=== PATIENT | female | born 1975 | race Caucasian/White ===

== ENCOUNTER 2024-01-30 06:20 | Inpatient (IN) | payer MEDICARE, OTHER, SELFPAY ==
[2024-01-30] VITALS (19 sets, daily range): BP systolic 98–136; BP diastolic 63–87; BMI 39.1
--- NOTE | 2024-01-30 04:09 | ED.GENMED ---
History of Present Illness
General
Chief Complaint: Vomiting Blood
Time Seen by Provider: 01/30/24 03:58
Travel History
Have you had any contact with someone who has COVID-19?: No
Do you have any symptoms of coronavirus? Fever > 100 degrees, chills, cough, shortness of breath, sore throat, loss of taste or smell, muscle aches, or headache?: No
History of Present Illness
History of Present Illness:
This is a 48-year-old woman with past medical history significant for cerebellar CVA 2017 with residual left-sided hemiplegia, chronically bedbound, history of DVT/PE status post IVC filter, chronically maintained on Eliquis, chronic pain syndrome
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
January 22 to January 26 initially with complaints of abdominal pain, nausea and vomiting with report of coffee-ground emesis prior to arrival. There was no further coffee-ground emesis during that hospitalization. CT abdomen pelvis during that
hospitalization showed no acute pathology but did demonstrate moderate to large stool burden suggestive of constipation. She was noted to have leukocytosis without definitive infectious pathology. Acute on chronic anemia with hemoglobin dropping
from 12.2-8.9, then trending back up to 9.5.
She was treated with bowel regimen with MiraLAX twice daily, magnesium oxide twice daily, smaller more frequent meals. PPI twice daily and milk of molasses enema as needed.
She was discharged back to intermediate facility for continued long-term care.
Patient states since discharge back to half-way she has continued with nausea, poor appetite and recurrent vomiting tonight with recurrent coffee-ground emesis.
She states during most recent hospitalization she was evaluated by GI and there was discussion regarding upper endoscopy but was not performed. She states her last upper endoscopy was a number of years ago.
She remains on bowel regimen and has been taking Zofran intermittently for nausea which is generally effective until tonight. She is also prescribed Reglan but does not believe she received a dose of Reglan today nor tonight.
She denies abdominal pain but does note chronic persistent low back pain, unchanged.
She has not had a fever nor chills, no chest pain nor shortness of breath. She does note intermittent dry cough that is chronic and unchanged as well.
Past History
Past History
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
gastric ulcer)
ED Past Surgical History: Other (gastric bypass, back sx)
Social History
Tobacco: Non-smoker
Alcohol: None
Personal: Single
Living: half-way
Employment: Disabled
Family History
Family History: Other (Noncontributory)
Phy Exam
Physical Exam
Physical Exam:
GENERAL: 48-year-old woman appears older than stated age, morbidly obese, appears chronically debilitated/chronically bedbound. She is awake and alert, exhibits a moderately blunted affect, easily communicative and appears in no acute distress. A
Yankauer suction catheter is poised along the left side of her mouth. An emesis bag contains a small amount of dark brown liquid material.
EYE: pupils equal and reactive. anicteric
NECK: Supple, nontender, no meningismus, no significant adenopathy.
ENT: posterior pharynx is clear, there is scant dark brown qmpqol-oiuqoz-ozlx material about the patient's lips. No rhinorrhea.
CARDIAC: Regular rate and rhythm. no murmur.
LUNGS: Clear breath sounds bilaterally, no acute respiratory distress, no wheezes/rales/rhonchi
ABDOMEN: Obese, soft, nondistended, without focal tenderness, mildly hypoactive bowel sounds.
NEUROLOGICAL: Alert and oriented x3, chronic left hemiparesis. Chronically bedbound.
SKIN: Warm and dry, mildly pale in color, skin intact. No rash.
MUSCULOSKELETAL: +1 pitting edema bilateral lower extremities, peripheral pulses are full and equal b/l. No palpable tenderness.
PSYCH: Normal and appropriate interaction.
Course
Orders/Labs/Results
Orders:
Orders
01/30/24 04:03
Test Result ONCE
01/30/24 04:16
Type+Screen Urgent
Complete Blood Count/With Diff Urgent
Comprehensive Metabolic Panel Urgent
HCG, Serum Qualitative Screen Urgent
Lactic Acid Urgent
Lipase Urgent
Protime/PTT Urgent
01/30/24 04:24
0.9% Sodium Chloride 1000 ml [Nss] 1,000 ml IV 250 mls/hr
Lorazepam [Ativan] 1 mg IV NOW STA
Metoclopramide [Reglan] 10 mg IV NOW STA
Pantoprazole 80 mg/100 ml Nss [Protonix] 80 mg in 100 ml IV NOW
01/30/24 05:36
Admit/Transfer Patient As Directed
Co-Sign Provider:
Level of Care: Inpatient admission
Assign to:: IMU- Intermediate Care
Physician / Group: [email or web address]
Diagnosis: Recurrent coffee-ground emesiseval for UGIB
Reason for Hospitalization: Recurrent coffee-ground emesiseval for UGIB
Expected length of stay greater than two midnights?: Yes
ELOS- Estimated Length of Stay in days: 3
I certify the patient meets the requirements for IP care: Yes
01/30/24 05:37
Code Status As Directed
Resuscitation Status: Full Code
01/30/24 Breakfast
NPO
Allow oral meds: No
Allow clear liquids: Sips of Clears
NPO with Ice Chips: Yes
01/30/24 06:56
0.9% Sodium Chloride 1000 ml [Nss] 1,000 ml IV 80 mls/hr
Dextrose 50%-Water [Dextrose 50% Syringe] 12.5 grams IV [id number] PRN
Glucagon [GlucaGen] 1 mg IM PRN PRN
Ondansetron Injectable [Zofran] 4 mg IV Q6HPRN PRN
01/30/24 06:56
Consult Notification Routine
Specialty to Notify: Gastroenterology
Date consulting provider notified: 01/30/24
Time consulting provider notified: 07:03
Notified:: Provider
Comment: Dr. Bustillos notified via tiger text
GASTROINTESTINAL CONSULT Routine
Consulting Provider: Selam Bustillos
Was physician already notified: No
Reason for consult: Recurrent coffee-ground emesiseval for UGIB
Activity As Directed
Activity Level: With Assistance
Bedside Glucose Monitoring As Directed
Frequency: AC&HS
Comment: Change to q6h if pt on TPN, tube feeding or not eating
INT (Intravenous Needle Therapy) As Directed
Comment: Place 2 IV catheters of the largest bore possible until stable
Intake/ Output As Directed
Frequency: q12h
Orthostatic Vital Signs As Directed
Orthostatic VS Frequency: Now
Comment: then every four hours for twenty-four hours
Pneumatic Compression Sleeves As Directed
Type: Knee high
Vital Signs As Directed
Frequency: Per unit guidelines
DX Deep Vein Thrombosis Video Routine
01/30/24 07:04
H&H Q6H
01/30/24 07:30
Insulin Aspart Corrective Low [Novolog Flexpen-Low Resistance] See Protocol SC AC
01/30/24 12:56
H&H Q6H
01/30/24 13:00
Pantoprazole 80 mg/100 ml Nss [Protonix] 80 mg in 100 ml IV Q10H
01/30/24 18:56
H&H Q6H
01/31/24 00:56
H&H Q6H
01/31/24 06:00
Basic Metabolic Panel IN AM
Glycohemoglobin (HgbA1c) IN AM
02/01/24 11:00
DC Protocol for Telemetry ONCE
Abnormal Lab Results
01/30/24
04:16
WBC 12.8 H 10^3/uL
(4.8-10.8)
Absolute Neuts (auto) 10.7 H 10^3/uL
(1.4-6.5)
Absolute Lymphs (auto) 1.1 L 10^3/uL
(1.2-3.4)
Absolute Monos (auto) 0.8 H 10^3/uL
(0.1-0.6)
Neutrophils % 84.0 H %
(42.2-75.2)
Lymphocytes % 8.9 L %
(20.5-51.1)
Carbon Dioxide 31 H mmol/L
(22-30)
Creatinine 0.5 L mg/dL
(0.6-1.0)
Glucose 137 H mg/dl
(70-99)
Total Protein 6.1 L g/dl
(6.3-8.2)
01/30/24 04:16
01/30/24 04:16
Vital Signs
Initial and Last Documented VS:
Initial Vital Signs
Resp
15
01/30/24 03:09
Last Documented Vital Signs
Temp Pulse Resp BP Pulse Ox
99.2 F 97 17 131/82 99
01/30/24 03:30 01/30/24 07:00 01/30/24 07:00 01/30/24 07:00 01/30/24 07:00
MDM/Problems Addressed
Differential Diagnosis Includes:
Concern for hemorrhagic gastritis, peptic ulcer disease, Moira-Mock tear.
Patient is hemodynamically stable and clinically appears euvolemic.
Will initiate Protonix drip, given IV dose of Reglan and initiate IV fluids.
Labs are pending.
Due to concern for recurrent GI bleed and patient at risk for bleeding as she is chronically maintained on Eliquis she is at significant risk for severe/symptomatic anemia, hypotension, hypovolemic shock thus will require acute hospitalization.
According to ED nurse patient has been vomited several times since arrival to the ED all coffee-ground in appearance. Patient is requesting her oxycodone and Ativan. Overall appears comfortable. Will give an IV dose of Ativan and hold off on oral
medications at this point.
Chronic conditions affecting care: DM, Neurological disorder (History of cerebellar stroke with left hemiparesis, chronically bedbound for the past 7 years.), Previous abdomnial surgery (Prior history of gastric bypass 2004), Psychiatric illness and
Other (Chronic pain syndrome, history of DVT/PE chronically maintained on Eliquis)
*Pulse Oximetry
Patient hypoxic: no
*Edi Programmer Analyst Interpretation
Rate: normal
Interpretation: normal
Rhythm: sinus
*Critical Care Note
Total Time (30-74mins, 75-104mins- exclusive of procedures): Not Applicable
Update Note
Update Note:
01/30/2024 0509 AM
Labs show mildly elevated white blood cell count of 12.8, normal H&H, unremarkable chemistries.
Due to concern for potential acute recurrent upper GI bleed and risks as above will admit to hospitalist service.
ED Attending Note
-
Portions of this chart may have been created with voice recognition software.� Occasional wrong word or��sound alike� substitutions may have occurred due to the inherent limitations of voice recognition software.
Discharge Plan
Departure
Patient Disposition: Admit
Date of Disposition: 01/30/24
Time of Disposition: 05:10
Admit to doctor: Miguel
Presentation/result/management discussed w/ accepting MD/DO: Hospitalist
Condition: Fair
Discharge Problem:
Coffee ground vomiting, Intractable nausea and vomiting
Interventions
Interventions:
*Risk Screen - Suicide Last Done: 01/30/24 03:33
*General Assessment Last Done: 01/30/24 03:33
*Neglect/Abuse Screening Last Done: 01/30/24 03:36
ED- Fall Risk Assessment Last Done: 01/30/24 06:54
*ED COVID-19 Vaccine History Last Done: 01/30/24 06:21
DV-Mnsngb-Anlierhcma Assessment Last Done: 01/30/24 04:22
ED- Cardiac Assessment Last Done: 01/30/24 03:43
ED- Pulmonary Assessment Last Done: 01/30/24 03:43
[2024-01-30 04:27] LABS: % Basophils 0.3 % (0-2); % Eosinophils 0.2 % (0-6); % Immature Granulocytes 0.3 % (0-0.5); % Lymphocytes 8.9 % (20.5-51.1); % Monocytes 6.3 % (1.7-9.3); Absolute Lymphocytes 1.1 10^3/uL (1.2-3.4); Absolute Monocytes 0.8 10^3/uL (0.1-0.6); Absolute Neutrophils 10.7 10^3/uL (1.4-6.5); Hemoglobin 12.7 g/dL (12.0-16.0); Mean Corp Hgb Conc. 34.3 g/dL (33.0-37.0); Mean Corpuscular Hgb 28.9 pg (27.0-31.0); Mean Corpuscular Volume 84.3 fL (81.0-99.0); Mean Platelet Volume 10.4 fL (7.4-10.4); Nucleated Red Blood Cells % 0 %; Platelet Count 299 10^3/uL (130-400); Red Blood Cell Count 4.39 10^6/uL (4.20-5.40); Red Cell Dist. Width 14.5 % (11.5-14.5); White Blood Cell Count 12.8 10^3/uL (4.8-10.8)
[2024-01-30] MEDS: REGLAN 10 MG IV (04:35)
[2024-01-30] MEDS: ATIVAN 1 MG IV ×2 (04:36→23:11)
[2024-01-30 04:39] LABS: Lactic Acid 1.3 mmol/L (0.7-2.0)
[2024-01-30 04:43] LABS: PT 14.1 Sec (11.4-14.6)
[2024-01-30 04:44] LABS: APTT 34.4 Sec (23.4-35.0)
[2024-01-30 04:45] LABS: HCG, Serum Qualitative Screen Negative
[2024-01-30] MEDS: NSS 1000 IV ×3 (04:51→19:51)
[2024-01-30 04:54] LABS: ALT (SGPT) 14 U/L (0-35); AST (SGOT) 16 U/L (14-36); Albumin 3.5 g/dl (3.5-5.0); Alkaline Phosphatase 102 U/L (38-126); Blood Urea Nitrogen 10 mg/dl (7-17); Calcium 9.9 mg/dl (8.4-10.2); Carbon Dioxide 31 mmol/L (22-30); Chloride 101 mmol/L (98-107); Estimated Creatinine Clearance > 125 ml/min; Glucose 137 mg/dl (70-99); Lipase 51 U/L (23-300); Potassium 3.6 mmol/L (3.5-5.1); Sodium 138 mmol/L (135-145); Total Bilirubin 0.5 mg/dl (0.2-1.3); Total Protein 6.1 g/dl (6.3-8.2); eGFR > 60.00
[2024-01-30] MEDS: PROTONIX 100 IV ×2 (05:04→15:20)
--- NOTE | 2024-01-30 05:29 | HPS.HSE ---
Family Physician
-
Family Physician: Dalia Fox, DO
Chief Complaint
-
recurret coffe ground emesis
History of Present Illness
Very vague Historian
I could only get limited information from the patient
Information gathered by chart review and speaking with the ER staff and old record from [facility]
48F chronic bed bound, HX DVT/PE s/p IVCF , chr Eliquis , chr narcotic dependent pain syndrome , T2 DM, HX cerebellar CVA residual left-sided hemiplegia, peptic ulcer disease with HX perforated gastric ulcer and GERD
Recent admission to [facility] ( 01/22- 01/27/24)
For abdominal pain, nausea and vomiting with report of coffee-ground emesis prior to arrival.
Further eval with CT at [facility] suggestive of constipation.
She was treated with bowel regimen with MiraLAX t, magnesium oxide , PPI twice daily and milk of molasses enema PRN
Discharged back to SNF for continued long-term care.
EGD was not was not done at [facility].
Reports since DC form [facility] continued with nausea, poor appetite and recurrent vomiting tonight with recurrent coffee-ground emesis
Currently on Eliquis - last dose was yesterday . Not on APL
Patent refuse to go back to [facility] .
ROS;
Not on ASA or Plavix
Denied abdominal pain
Denied CP, palpitation
She wears diaper and she did not know black tarry stool or what not !
Medical History
Past Medical History
Past Medical History: Reports Other
Additional Past Medical History:
CVA (Chronic left hemiparesis)
GERD
NIDDM
DVT/PE, chronically maintained on Eliquis
chronic pain syndrome on chronic opioids
Migraine headaches,
peptic ulcer disease, GERD,
perforated gastric ulcer
Past Surgical History: Reports Other
Additional Past Surgical History:
gastric bypass,
back sx
Social History
Tobacco: Non-smoker
Alcohol: None
Drug: None
Living: [facility]
Employment: Disabled
Family History
Family History: Not pertinent
Allergies / Home Medications
Allergies reflects when Allergies were last updated in [employer].
Home Medications with original date entered in [employer]
Allergy/Medication List:
Allergies
Allergy/AdvReac Type Severity Reaction Status Date / Time
sulfamethoxazole AdvReac Mild Rash Verified 04/16/17 12:19
[From Bactrim]
trimethoprim [From Bactrim] AdvReac Mild Rash Verified 04/16/17 12:19
NKA - No Known Allergies Allergy Unknown Uncoded 04/16/17 12:19
Home Medications
oxycodone-acetaminophen 5 mg-325 mg tablet 30 mg PO Q4H 08/20/09
Miralax 17 gm PO DAILY 04/16/17
morphine 75 mg capsule,extended release 24 hr multiphase 75 mg PO TID 04/16/17
Review of Systems
-
Constitutional: Reports No Symptoms
EENT: Reports No Symptoms
Respiratory: Reports No Symptoms
Cardiac: Reports No Symptoms
Abdomen/GI: Reports See HPI, Abdominal Pain, Nausea, Vomiting and Constipated
: Reports No Symptoms
Musculoskeletal: Reports No Symptoms
Skin: Reports No Symptoms
Neurological: Reports No Symptoms
Endocrine: Reports No Symptoms
Hematologic/Lymphatic: Reports No Symptoms
Psych: Reports No Symptoms
Physical Exam
Vital Signs
Vital Signs
Temp Pulse Resp BP Pulse Ox
99.2 F 106 17 131/87 94
01/30/24 03:30 01/30/24 03:30 01/30/24 03:30 01/30/24 03:30 01/30/24 03:43
Physical Exam
General: No Apparent Distress, Conversant and Morbidly Obese
HEENT: NormoCephalic, Anicteric, PERRLA and Other (scant dark brown umfanq-mhdeug-oeav material on her lips)
Respiratory: Clear
Cardiac: S1/S2, Regular Rhythm and Tachycardia
Breast: Deferred by me
GI: Soft, Non Tender, Non Distended, Normal Bowel Sounds and Other (obese )
Rectal: Deferred by Provider
Genito-urinary: Deferred by me
Musculoskeletal: Edema, Left Lower Extremity (+1 pitting edema) and Edema, Right Lower Extremity (+1 pitting edema)
Skin: Warm
Neuro: AO x 3
Psych: Other (flat affect )
Laboratory Results
-
01/30/24 04:16
01/30/24 04:16
Laboratory Results
PT 14.1 Sec (11.4-14.6) 01/30/24 04:16
INR 1.10 01/30/24 04:16
APTT 34.4 Sec (23.4-35.0) 01/30/24 04:16
Lactic Acid 1.3 mmol/L (0.7-2.0) 01/30/24 04:16
Total Bilirubin 0.5 mg/dl (0.2-1.3) 01/30/24 04:16
AST 16 U/L (14-36) 01/30/24 04:16
ALT 14 U/L (0-35) 01/30/24 04:16
Alkaline Phosphatase 102 U/L (38-126) 01/30/24 04:16
Lipase 51 U/L (23-300) 01/30/24 04:16
Data Reviewed
-
Lab Data: Labs Reviewed by me
Old Records: Reviewed
Impression/Plan
-
Data
WCC12.2
Hgb 12.7CO2 31
Cr 0.5
NEG HCG
Last hospitalist admission: 2016
1. Questionable reaction to Lovenox while patient is treated for DVT and history of pulmonary embolism status post IVC filter.
2. Chronic pain with opiate dependence.
3. History of gastric bypass.
4. Morbid obesity with BMI of 41.
5. Agitation and depression.
ASSESSMENT & PLAN
Pending Rx reconciliation
Recurrent N/V
Recurrent coffee-ground emesis.
Hemodynamically stable - clinically euvolemic.
DDX: acute gastritis, peptic ulcer disease, constipation
Currently on Eliquis - last dose was yesterday but time is unknown
Not on ASA or Plavix
Denied abdominal pain
She wears diaper and she did not know black tarry stool or what not !
Morbidly obese
Recent admission to [facility] ( 01/22- 01/27/24) with similar acute problem. Refused to go back to [facility]
- Hgb 12.7
- stool for HoB
- T & S , Blood consented
- Held Eliquis
- PPI gtt
- IV Reglan PRN
- H & H
- GI consult
Chr constipation due to chr narcotics depedent pain syndrome
Chronic conditions
DM
HX cerebellar stroke with left hemiparesis, chronically bedbound for the past 7 years
Previous abdominal surgery (Prior history of gastric bypass 2004
Psychiatric illness
Chronic pain syndrome, history of DVT/PE chronically maintained on Eliquis
DVT Px: SCD
Full code
IMU
[2024-01-30 07:04] LABS: Glucose - Point of Care 103 mg/dl (70-99)
[2024-01-30 07:18] LABS: Hemoglobin 11.2 g/dL (12.0-16.0)
[2024-01-30] MEDS: ZOFRAN 4 MG IV (07:18)
--- NOTE | 2024-01-30 07:35 | PTCARENOTE ---
Assumed care at 0700. VSS. NSR on telemetry, HR 90s at rest. Can become tachycardic, HR 110s-140s if vomiting. Vomited 200ml brown/coffee ground emesis. Medicated w/ Zofran, see MAR. Repositioned for comfort.
--- NOTE | 2024-01-30 08:15 | PTCARENOTE ---
patient received on 2L oxygen, SaO2 >95% on 2L while awake. Oxygen weaned off, however SaO2 87-90% while napping. 2L oxygen back on.
--- NOTE | 2024-01-30 09:08 | CON.GI ---
Addendum entered and electronically signed by Selam Trevizo Do, MD 01/30/24 12:47:
I saw and examined the patient.
The BARREL REAMER's note was reviewed and I agree with the note.
Comment: Nargis is a 48yo W group home resident with h/o CVA s/p L hemiparesis, DVT/PE on eliquis, obesity s/p gastric bypass and PUD with remote perforation who was transferred to ER for coffee ground emesis and no BM in about 3-4days. She
of note was recently at [place] [facility] 1 week ago for similar issues that improved with bowel regimen. She was d/shahana on PPI BID. She did not have EGD. She cannot remember when it was done but >multiple years ago. Exam VSS but Tmax 100.8F
obese chronically ill appearing hemiparetic. obese abdomen NTTP. venous stasis changes. Labs reviewed. Past 24hr H/H stable
Impression
- Coffee ground emesis
suspect related to constipation in setting of opioid use and immobility
ddx includes esophagitis, PUD or ectasia
- Fever
- CVA L hemiparesis
- Obesity
- h/o gastric bypass
- Remote h/o PUD with perforation
Recommendations
- Serial H/H, 2 large bore IVs
- Protonix gtt
- NPO for now, she declines NGT
- AXR to eval for obstruction. Pending this consider CTAP
- Pending above consider enema and bowel regimen
- Hold anticoagulation, will need to reach out to SNF to see when last use eliquis. Consider EGD after washout
Will follow with you
Original Note:
Consultation
-
Date/Time Consultation Requested: 01/30/24 @ 06:56
Date/Time Consultation Performed: 01/30/24 @ 09:15
Requesting Provider: Dr. Rivera
Performing Provider: BEAR Curiel; Dr. Selam Bustillos
Reason for Consultation: Recurrent coffee-ground emesiseval for UGIB
Medical History
Chief Complaint / HPI
Chief Complaint: Recurrent coffee-ground emesis
History of Present Illness:
The patient is a 48-year-old female with a past medical history significant for CVA with left hemiparesis, morbid obesity, bipolar disorder, anxiety, HLD, DVT/PE on Eliquis, history of peptic ulcer disease with perforation, GERD, gastric bypass,
history of migraines, DM2, chronic narcotics secondary to chronic pain syndrome, ambulatory dysfunction, who presented to the emergency room with complaints of recurrent coffee-ground emesis. We are being asked to evaluate for the presenting
symptoms with concern for possible GI bleed. The patient is a poor historian therefore the medical record was utilized for HPI and prior history. Upon review of ER and admitted records, the patient had recent admission to [facility] 1 week
ago for abdominal pain, nausea, vomiting, and coffee-ground emesis. Imaging at that time reportedly suggested constipation in which she was treated with a bowel regimen. She was also placed on PPI twice daily. She was transferred back to her
nursing facility and did not undergo endoscopic evaluation at that time. She presents again with recurrent symptoms of abdominal pain, nausea, and vomiting coffee-ground emesis. She reports pain 'all over' her abdomen. She does not quantify how
long she has had this pain but notes it has been several weeks. She does admit to continued nausea and per nursing has vomited at least 700 cc of coffee-ground emesis since last night. She notes she does have a history of perforated gastric ulcer
but notes this was years ago. She did have EGD at [place] at that time but we do not have the records. She does not remember when her last EGD was in recent years. She does not follow with a GI doctor routinely. She denies fevers or chills but
did have a low-grade temperature of 100.8 in the ER here. She notes that she has not had a bowel movement since Tuesday and does admit to chronic constipation alternating with diarrhea. She denies any signs of blood in the stool. She admits she
has also had a decreased appetite. She denies any use of NSAIDs. She does not drink alcohol and denies any history of drug use. She admits to remote history of gastric bypass and is unable to tell me when this was done or what type of surgery she
had. Upon review of her medication record she does take Eliquis twice daily which has been held. She is also on chronic narcotics with oxycodone 20 mg 4 times a day along with daily Protonix. She does also have on file for as needed medications
Reglan 5 mg as needed every 6 hours and Zofran 4 mg every 6 hours as needed. Routine labs on admission showed WBC 12.8, hemoglobin 12.7, platelets 299,000, INR 1.1, BUN 10, creatinine 0.5, sodium 138, potassium 3.6, lactic acid 1.3, total bilirubin
0.5, AST 16, ALT 14, alk phos 102, lipase 51, hCG negative. EKG showed sinus tachycardia with a QTc 507. Per admitting notes stool is heme positive although unclear what color. She was placed on PPI drip, started on IV Reglan as needed, and
admitted for further evaluation by GI. Eliquis was held on admission.
Past Medical History
Past Medical History: CVA (Left hemiparesis), GERD (History of perforated peptic ulcer), IDDM, Psychiatric (Anxiety, bipolar disorder) and Other (History of DVT/PE on Eliquis, chronic pain syndrome on chronic opiates, constipation, history of
migraines, ambulatory dysfunction primarily bedbound (history obtained from the medical record))
Past Surgical History: Orthopedic (Back surgery) and Other (Gastric bypass)
Social History
Tobacco: Non-Smoker
Alcohol: None
Drug: None
Living: Longterm
Family History
Family History: Reviewed & Not Pertinent
Allergies / Home Medications
Allergy/AdvReac Type Severity Reaction Status Date / Time
sulfamethoxazole AdvReac Mild Rash Verified 04/16/17 12:19
[From Bactrim]
trimethoprim [From Bactrim] AdvReac Mild Rash Verified 04/16/17 12:19
NKA - No Known Allergies Allergy Unknown Uncoded 04/16/17 12:19
�Medication �Instructions �Recorded
polyethylene glycol 3350 17 gram 17 g PO BID Constipation ##0 04/16/17
oral powder packet (Miralax)
acetaminophen 325 mg tablet 650 mg PO Q4HPRN PRN pain 01/30/24
(Tylenol)
amitriptyline 25 mg tablet 25 mg PO HS depression/sleep 01/30/24
apixaban 5 mg tablet (Eliquis) 5 mg PO BID Blood Clot 01/30/24
Prevention/hx DVT/PE
atorvastatin 40 mg tablet (Lipitor) 40 mg PO HS High Cholesterol 01/30/24
baclofen 10 mg tablet 10 mg PO TID Muscle Spasms 01/30/24
bisacodyl 10 mg rectal suppository 10 mg CA DAILYPRN PRN constipation 01/30/24
(Dulcolax (bisacodyl))
oxkziloglb-gdvgrkapknfjh-ibfuvrzc 1 cap PO Q6HPRN PRN headches 01/30/24
50 mg-325 mg-40 mg capsule
calcium carbonate (Tums) 400 mg PO Q6HPRN PRN gerd 01/30/24
cholecalciferol (vitamin D3) 50 50 mcg PO DAILY Supplement 01/30/24
mcg (2,000 unit) tablet (Vitamin
D3)
ketotifen fumarate 0.025 % (0.035 1 drp BOTH EYES BID Eye Condition 01/30/24
%) eye drops (Zaditor)
loratadine 10 mg tablet 10 mg PO DAILY Allergies 01/30/24
lorazepam 1 mg tablet 1 mg PO Q6H anxiety 01/30/24
melatonin 3 mg tablet 3 mg PO HS sleep 01/30/24
metoclopramide HCl 5 mg tablet 5 mg PO Q6HPRN PRN nausea 01/30/24
(Reglan)
metronidazole 0.75 % topical cream 1 applic topical DAILY 01/30/24
nose,eyebrows,cheeks
morphine 60 mg tablet,extended 60 mg PO Q12H pain 01/30/24
release
nystatin 100,000 unit/gram topical 1 applic topical Q12H under both 01/30/24
powder breast, groin
ondansetron 4 mg disintegrating 4 mg PO Q6HPRN PRN nasuea 01/30/24
tablet
oxycodone 20 mg tablet 20 mg PO QID pain 01/30/24
pantoprazole 40 mg tablet,delayed 40 mg PO DAILY Gastrointestinal 01/30/24
release (Protonix) Issue
pregabalin 200 mg capsule (Lyrica) 200 mg PO TID pain 01/30/24
salicylic acid 2 % topical foam 1 ea topical MOFR@0800 cheek,upper 01/30/24
back and chest
sennosides 8.6 mg-docusate sodium 1 tab-cap PO BID constipation 01/30/24
50 mg tablet
sodium phosphates 19 gram-7 118 ml CA Q8HPRN PRN constipation 01/30/24
gram/118 mL enema (Fleet Enema)
Review of Systems
-
History Source: Patient
Constitutional: Reports Fever and Fatigue
EENT: Reports No Symptoms
Respiratory: Reports No Symptoms
Cardiac: Reports No Symptoms
Abdomen/GI: Reports Abdominal Pain, Nausea, Vomiting, Constipated and Other (Coffee-ground emesis)
Musculoskeletal: Reports Other (Chronic pain)
Neurological: Reports No Symptoms
Vital Signs
Temp Pulse Resp BP Pulse Ox
100.8 F H 109 20 133/85 93
01/30/24 09:00 01/30/24 09:00 01/30/24 09:00 01/30/24 09:00 01/30/24 08:45
Physical Exam
Exam
General: Other (Chronically ill-appearing female in no overt distress, flushed appearing)
HEENT: Normocephalic, Anicteric and Atraumatic
Respiratory: Other (Overall diminished breath sounds bilaterally with no obvious wheezing, supplemental O2 in place)
Cardiac: S1/S2 (Sinus tachycardia on telemetry monitoring)
Breast: Deferred by me
GI: Tender (Generalized tenderness throughout abdomen), Distended and Other (Overall hypoactive bowel sounds with right lower quadrant hyperactive bowel sounds)
Rectal: Deferred by Provider (Due to acuity with hypoxia, deferred rectal exam but reportedly heme positive per ER team)
Skin: Warm and Dry
Neuro: Other (Drowsy, but arousable and able to participate in conversation, following commands)
Psych: Calm
Results
WBC 12.8 10^3/uL (4.8-10.8) H 01/30/24 04:16
Hgb 11.2 g/dL (12.0-16.0) L 01/30/24 07:04
Hct 34.0 % (37.0-47.0) L 01/30/24 07:04
MCV 84.3 fL (81.0-99.0) 01/30/24 04:16
Plt Count 299 10^3/uL (130-400) 01/30/24 04:16
Absolute Neuts (auto) 10.7 10^3/uL (1.4-6.5) H 01/30/24 04:16
PT 14.1 Sec (11.4-14.6) 01/30/24 04:16
INR 1.10 01/30/24 04:16
APTT 34.4 Sec (23.4-35.0) 01/30/24 04:16
Sodium 138 mmol/L (135-145) 01/30/24 04:16
Potassium 3.6 mmol/L (3.5-5.1) 01/30/24 04:16
Chloride 101 mmol/L (98-107) 01/30/24 04:16
Carbon Dioxide 31 mmol/L (22-30) H 01/30/24 04:16
BUN 10 mg/dl (7-17) 01/30/24 04:16
Creatinine 0.5 mg/dL (0.6-1.0) L 01/30/24 04:16
Calcium 9.9 mg/dl (8.4-10.2) 01/30/24 04:16
Total Bilirubin 0.5 mg/dl (0.2-1.3) 01/30/24 04:16
AST 16 U/L (14-36) 01/30/24 04:16
ALT 14 U/L (0-35) 01/30/24 04:16
Alkaline Phosphatase 102 U/L (38-126) 01/30/24 04:16
Lipase 51 U/L (23-300) 01/30/24 04:16
Diagnostic Image Results:
No diagnostics for review
Prior GI Procedures:
EGD: Unknown last EGD, done at [facility]
Colonoscopy: None
Assessment / Plan
-
The patient is a 48-year-old female with a past medical history significant for CVA with left hemiparesis, morbid obesity, bipolar disorder, anxiety, HLD, DVT/PE on Eliquis, history of peptic ulcer disease with perforation, GERD, gastric bypass,
history of migraines, DM2, chronic narcotics secondary to chronic pain syndrome, ambulatory dysfunction, who presented to the emergency room with complaints of recurrent coffee-ground emesis. We are being asked to evaluate for the presenting
symptoms with concern for possible GI bleed. The patient is a poor historian, but with reported recent admission at [facility] with similar symptoms, with reported findings significant for constipation and started on a bowel regimen without
endoscopic evaluation. She presents here with nausea and vomiting with coffee-ground emesis with abdominal pain with large volume emesis output along with drifting hemoglobin. Now with low-grade fevers, mild hypoxia requiring supplemental oxygen,
and leukocytosis concerning for possible aspiration. Labs showing WBC 12.6, hemoglobin 11.2. Started on PPI drip, IV antiemetics, and made n.p.o. for further evaluation by GI.
Problem list:
-Coffee-ground emesis
-Abdominal pain
-Mild anemia
-Low-grade fever
-Leukocytosis, ?Sepsis picture
-Tachycardia
-History of perforated peptic ulcer
-GERD
-History of gastric bypass
-Ambulatory dysfunction, secondary to left-sided hemiparesis after CVA
-Constipation, likely chronic
-History of DVT/PE on Eliquis
Other pertinent medical history:
-Morbid obesity
-Bipolar disorder
-anxiety
-Insulin-dependent DM2
-Chronic pain syndrome with chronic narcotic use
-Ambulatory dysfunction/bedbound
Recommendations:
-Etiology of coffee-ground emesis possibly secondary to obstructive process versus upper GI bleed given history of perforated gastric ulcer versus constipation versus other.
---Prior admission at [place] reportedly 1 week ago reporting constipation but did not undergo endoscopic evaluation.
-Will obtain records from [place] admission including CT imaging
-Will check an obstruction series given her ongoing large volume of emesis to rule out obstructive process
-Recommend placement of NG tube to low intermittent suction. Discussed with NICOLASA Soares
-Continue PPI drip
-Continue to hold Eliquis
-Trend H&H and transfuse as needed to keep hemoglobin greater than 7
-Strict n.p.o.
-With leukocytosis and low-grade fevers, concern for aspiration. Discussed case with Dr. Bustillos and Dr. Bruce. Pancultures and IV Zosyn ordered by Dr. Bruce
-Resume bowel regimen pending obstruction series and clinical course. May require enemas until she is taking oral
-Further plan pending above. If she continues to drop her hemoglobin, to consider endoscopic evaluation after Eliquis washout given her history of perforated gastric ulcer and chronic anticoagulation with Eliquis
-Will follow
-
-
Thank you for consultation and allowing me to participate in the patient's care. Please call the collections officer GI physician during the after hours with any questions or concerns.
[2024-01-30] MEDS: REGLAN 5 MG IV (09:12)
--- NOTE | 2024-01-30 09:58 | W.PN.HOSP.TC ---
Today's Communication/Plan
-
blood cultures
empiric zosyn
strict npo
pain meds converted to Fentanyl prn dilaudid while strict NPO
ativan IV with holding parameters
follow up obstruction series
Limit QT prolonging agents as possible.
Assessment / Plan
Assessment / Plan
Physical Exam
General: No acute distress, Morbidly Obese
HEENT: NormoCephalic, Anicteric, PERRLA
Respiratory: Clear to auscultation
Cardiac: S1/S2, Regular Rhythm and Tachycardia
GI: Soft, Non Tender, Hyperactive Bowel Sounds.
Musculoskeletal: left sided hemiplegia
Skin: Warm
Neuro: Lethargic but arousable oriented x 3
Psych: Calm
48F CVA residual left-sided hemiplegia, chronic bed bound, HX DVT/PE s/p IVCF , chr Eliquis , chr narcotic dependent pain syndrome, T2 DM, peptic ulcer disease with HX perforated gastric ulcer and GERD p/w coffee ground emesis nausea vomiting
recently admitted at [place] for the same (01/22 - 01/27/24) reportedly diagnosed with severe constipation, no EGD done. Patient later developed fever with associate tachycardia leukocytosis and Hypoxic Respiratory Failure requiring 4L non-labored
respiration- concerning for Aspiration Sepsis Pneumonia, no hypotension or lactic acidosis.
Recurrent N/V
Recurrent coffee-ground emesis.
Hemodynamically stable - clinically euvolemic.
DDX: acute gastritis, peptic ulcer disease, constipation
Chr constipation due to chr narcotics depedent pain syndrome
Currently on Eliquis - last dose 01/28 unknown time
Not on ASA or Plavix
Denied abdominal pain
Reports normal bowel movement 3 days ago
Morbidly obese
Recent admission to [facility] ( 01/22- 01/27/24) with similar acute problem. Refused to go back to [facility]
trend H&H, transfuse goal Hgb 8 due to concern bleeding. initial Hgb 12.7 slight downtrend noted but otherwise does not require transfusion at this time.
Hold Eliquis
PPI gtt
IV Reglan PRN, home prn zofran switched to Tigan d/t QT prolongation concerns
GI consult appreciated
-Checking Obstruction Series
-Strict NPO
-NGT recommended for decompression however patient refuses
Sepsis Aspiration PNA (Leukocytosis, Tachycardia, Fever)
Acute Hypoxic respiratory failure requiring 4L to maintain saturations
-prn rectal Tylenol
-blood cultures
-empiric zosyn
-O2 supplementation as necessary goal 92%
Chronic Pain Syndrome Narcotic dependent
home long acting morphine scheduled oxycodone converted to fentanyl patch and prn dilaudid while strict NPO
Home scheduled Ativan converted to IV with instructions to hold if sedated
QT prolongation
limit QT prolonging agents as possible
Zofran converted to Tigan as above
cont phototypesetting equipment monitor
EKG QT monitoring
Hx DVT/PE s/p IVC filter chronic Eliquis
-Eliquis on hold as above
-check Venous duplex
Chronic conditions
DM- low dose sliding scale
HX cerebellar stroke with left hemiparesis, chronically bedbound for the past 7 years
Previous abdominal surgery (Prior history of gastric bypass 2004
Psychiatric illness
Chronic pain syndrome, history of DVT/PE chronically maintained on Eliquis
DVT Px: Anticoagulation on hold as above, check venous duplex d/t hx DVT before starting SCD
Full code
IMU
I spent a total of 60 minutes with the patient or on the floor. More than 50% of this time involved counseling and coordination of care.
Anticipated Discharge: > 48 hours
Subjective/Interval History
-
Date of Service: January 30, 2024
Seen and examined at bedside lethargic but arousable Oriented x3. Significant nausea vomiting overnight. Nausea since improved with prn zofran and reglan. Reports last bowel movement 3 days ago, normal
Objective Data
-
Labs:
Laboratory Results
01/30/24 01/30/24 01/30/24
04:16 07:04 12:56
WBC 12.8 H
Hgb 12.7 11.2 L Pending
Hct 37.0 34.0 L Pending
Plt Count 299
PT 14.1
INR 1.10
APTT 34.4
Sodium 138
Potassium 3.6
Chloride 101
Carbon Dioxide 31 H
BUN 10
Creatinine 0.5 L
Glucose 137 H
Calcium 9.9
Total Bilirubin 0.5
AST 16
ALT 14
Alkaline Phosphatase 102
01/30/24
18:56
WBC
Hgb Pending
Hct Pending
Plt Count
PT
INR
APTT
Sodium
Potassium
Chloride
Carbon Dioxide
BUN
Creatinine
Glucose
Calcium
Total Bilirubin
AST
ALT
Alkaline Phosphatase
Vital Signs:
Vital Signs
Temp Pulse Resp BP Pulse Ox
100.8 F H 109 20 133/85 93
01/30/24 09:00 01/30/24 09:00 01/30/24 09:00 01/30/24 09:00 01/30/24 08:45
I&O
01/29/24 01/30/24 01/31/24
06:59 06:59 06:59
Intake Total 520 / 520
Output Total 1500 / 1500 200 / 200
Balance -980 / -980 -200 / -200
[2024-01-30] MEDS: TYLENOL/FEVERALL 650 MG RECTAL (10:31)
[2024-01-30 10:41] LABS: COVID-19 Antigen Negative (Negative)
[2024-01-30 11:47] LABS: Glucose - Point of Care 133 mg/dl (70-99)
[2024-01-30] MEDS: ZOSYN 50 IV ×3 (11:47→23:11)
[2024-01-30] MEDS: ATIVAN IV ×2 (11:52→19:07)
[2024-01-30] MEDS: DURAGESIC 50 MCG/HR PATCH TRANSDERM (11:53)
[2024-01-30] MEDS: NSS (PRESERVATIVE FREE) IV ×2 (11:53→19:07)
[2024-01-30 12:26] LABS: Hematocrit 33.6 % (37.0-47.0); Hemoglobin 11.4 g/dL (12.0-16.0)
[2024-01-30 12:29] LABS: Glycohemoglobin (HgbA1c) 5.3 % (4.0-5.6)
--- NOTE | 2024-01-30 12:47 | W.PN.UPDATE ---
Update Note
Progress Note Update
Billing purposes
[2024-01-30] MEDS: DURAGESIC 50 MCG/HR PATCH 1 PATCH TRANSDERM (15:34)
[2024-01-30] MEDS: DILAUDID 0.5 MG IV ×2 (17:51→20:51)
[2024-01-30 18:03] LABS: Glucose - Point of Care 97 mg/dl (70-99)
--- NOTE | 2024-01-30 18:05 | PTCARENOTE ---
Pt received from ED on stretcher. Presents as assessed. Becoming more awake and alert. Fentanyl patch in place on L upper arm. Medicated with Dilaudid for low back pain, see MAR. Remains NPO. Orders received for enema and suppository, pt refusing
despite education. Dr. Bustlilos notified via TT.
[2024-01-30] MEDS: ZADITOR OPHTH (19:51)
[2024-01-30] MEDS: DESENEX/MITRAZOL/ZEASORB 1 APPLIC TOPICAL (19:51)
[2024-01-30 19:56] LABS: Hematocrit 36.4 % (37.0-47.0); Hemoglobin 12.5 g/dL (12.0-16.0)
[2024-01-30] MEDS: DULCOLAX 10 MG PO (21:28)
[2024-01-30] MEDS: NSS (PRESERVATIVE FREE) 0.5 ML IV (23:11)
[2024-01-30 23:21] LABS: Glucose - Point of Care 100 mg/dl (70-99)
[2024-01-31] VITALS (11 sets, daily range): BP systolic 97–149; BP diastolic 57–76
[2024-01-31] MEDS: DILAUDID 0.5 MG IV ×6 (00:31→22:11)
[2024-01-31] MEDS: PROTONIX 100 IV ×3 (00:42→18:26)
--- NOTE | 2024-01-31 04:22 | PTCARENOTE ---
assumed care of patient, pt right away asking for pain medication, saying the dilaudid is not lasting long. covering AGRICULTURAL ADVISER notified, IV dilaudid changed to q3- given around the clock on the dot. pt at times refusing care, refusing q2t, trying to
refuse accuchecks stating 'I am not a diabetic'. after education pt agreeable to blood sugar check. fentanyl patch on left upper arm. left side flaccid due to previous stroke, limb restriction band placed on left arm per patient request. this AM pt
refusing blood work after two tries. telling lead shop operator 'you're done'. will pass along to day RN to try labs later.
[2024-01-31] MEDS: NSS (PRESERVATIVE FREE) 0.5 ML IV ×3 (05:16→23:27)
[2024-01-31] MEDS: NSS 1000 IV ×2 (05:16→17:59)
[2024-01-31] MEDS: ATIVAN 1 MG IV ×4 (05:16→23:26)
[2024-01-31] MEDS: ZOSYN 50 IV ×2 (05:17→12:01)
[2024-01-31 05:26] LABS: Glucose - Point of Care 105 mg/dl (70-99)
--- NOTE | 2024-01-31 07:58 | W.PN.HOSP.TC ---
Today's Communication/Plan
-
Stable for downgrade to Tele
monitor H&H
diet as per GI, NPO after midnight for possible EGD
cont hold Eliquis at this time.
empiric zosyn de-escalated to unasyn for suspected aspiration pna
Assessment / Plan
Assessment / Plan
Physical Exam
General: No acute distress, Morbidly Obese
HEENT: NormoCephalic, Anicteric, PERRLA
Respiratory: Clear to auscultation
Cardiac: S1/S2, Regular Rhythm and Tachycardia
GI: Soft, Non Tender, Hyperactive Bowel Sounds.
Musculoskeletal: left sided hemiplegia baseline per patient
Skin: Warm
Neuro: Alert oriented x 3
Psych: Calm
48F CVA residual left-sided hemiplegia, chronic bed bound, HX DVT/PE s/p IVCF , chr Eliquis , chr narcotic dependent pain syndrome, T2 DM, peptic ulcer disease with HX perforated gastric ulcer and GERD p/w coffee ground emesis nausea vomiting
recently admitted at [place] for the same (01/22 - 01/27/24) reportedly diagnosed with severe constipation, no EGD done. Patient later developed fever with associate tachycardia leukocytosis and Hypoxic Respiratory Failure requiring 4L non-labored
respiration- concerning for Aspiration Sepsis Pneumonia, no hypotension or lactic acidosis.
Recurrent N/V
Recurrent coffee-ground emesis.
Hemodynamically stable - clinically euvolemic.
Possible acute gastritis, peptic ulcer disease, severe constipation
Chr constipation due to chr narcotics depedence pain syndrome
Eliquis on hold- last dose 01/28 unknown time
Not on ASA or Plavix
Denied abdominal pain
Reports normal bowel movement 3 days ago
Morbidly obese
Recent admission to [facility] ( 01/22- 01/27/24) with similar acute problem. Refused to go back to [facility]
trend H&H, transfuse goal Hgb 8 due to concern bleeding. initial Hgb 12.7 downtrending, transfusion not necessary at this time
Hold Eliquis
PPI gtt
IV Reglan PRN, home prn zofran switched to Tigan d/t QT prolongation concerns
GI consult appreciated
-Obstruction Series appreciated constipation no obstruction
-Strict NPO advanced to clear liquid diet, NPO after midnight, planned for EGD tomorrow
Sepsis Aspiration PNA (Leukocytosis, Tachycardia, Fever)
Acute Hypoxic respiratory failure requiring 4L to maintain saturations
-prn rectal Tylenol
-blood cultures NGTD
-empiric zosyn de-escalated to unasyn
-weaned off oxygen supplementation, stable respiratory status on room air
Chronic Pain Syndrome Narcotic dependent
home long acting morphine scheduled oxycodone converted to fentanyl patch and prn dilaudid while strict NPO
diet since advanced as above, will switch back to oral home regimen when oral intake anticipated to be consistent (no further NPO plans)
Home scheduled Ativan converted to IV with instructions to hold if sedated
QT prolongation
limit QT prolonging agents as possible
cont cardiac monitor technician
QT prolongation since resolved
Tigan converted back to zofran as needed.
Hx DVT/PE s/p IVC filter chronic Eliquis
-Eliquis on hold as above
-Venous duplex appreciated chronic DVT LLE, no DVT noted RLE peroneal veins not well seen
Chronic conditions
reported hx DM- low dose sliding scale for now. A1c appreciated 5.3 non-diabetic (inaccurate if patient has received blood transfusion recently)
HX cerebellar stroke with left hemiparesis, chronically bedbound for the past 7 years
Previous abdominal surgery (Prior history of gastric bypass 2004)
Psychiatric illness
DVT Px: Anticoagulation on hold as above, SCD RLE only Left contraindicated d/t DVT
Full code
Stable for downgrade to Telemetry
Discussed with patient at bedside and patient's father Fernandez over phone
I spent a total of 50 minutes with the patient or on the floor. More than 50% of this time involved counseling and coordination of care.
Anticipated Discharge: 24 - 48 hours
Subjective/Interval History
-
Date of Service: January 31, 2024
Seen and examined at bedside in no acute distress resting comfortably in bed. Weaned off oxygen supplementation respiratory status stable on room air. Reports resolution nausea vomiting.
Objective Data
-
Labs:
Laboratory Results
01/31/24 01/31/24
00:56 04:11
WBC Pending
Hgb Cancelled Pending
Hct Cancelled Pending
Plt Count Pending
Sodium Pending
Potassium Pending
Chloride Pending
Carbon Dioxide Pending
BUN Pending
Creatinine Pending
Glucose Pending
Calcium Pending
Vital Signs:
Vital Signs
Temp Pulse Resp BP Pulse Ox
98.0 F 70 12 118/66 98
01/31/24 03:17 01/31/24 06:00 01/31/24 06:00 01/31/24 06:00 01/31/24 06:00
I&O
01/30/24 01/31/24 02/01/24
06:59 06:59 06:59
Intake Total 520 / 520 50 / 50
Output Total 1500 / 1500 600 / 600
Balance -980 / -980 -550 / -550
[2024-01-31 09:48] LABS: Hematocrit 27.7 % (37.0-47.0); Hemoglobin 9.2 g/dL (12.0-16.0); Mean Corp Hgb Conc. 33.2 g/dL (33.0-37.0); Mean Corpuscular Hgb 28.8 pg (27.0-31.0); Mean Corpuscular Volume 86.8 fL (81.0-99.0); Mean Platelet Volume 10.5 fL (7.4-10.4); Platelet Count 221 10^3/uL (130-400); Red Blood Cell Count 3.19 10^6/uL (4.20-5.40); White Blood Cell Count 5.6 10^3/uL (4.8-10.8)
[2024-01-31] MEDS: ZADITOR OPHTH ×2 (09:50→22:10)
[2024-01-31] MEDS: DESENEX/MITRAZOL/ZEASORB 1 APPLIC TOPICAL ×2 (09:50→21:03)
--- NOTE | 2024-01-31 10:01 | CM ---
Addendum entered by Sophy Anders RN 01/31/24 10:11:
Patient with Hx CVA residual left-sided hemiplegia.
Original Note:
Patient from [facility] with Dx Recurrent coffee-ground emesis, Sepsis, Aspiration PNA. Receiving IVF, IV Abx. PT Screen; no needs. Per nurse assessment; requires assist of 2.
Spoke with Vania, [facility]; the patient resides there in LTC and is on an AK bed hold. She is A/O, assisted with ADLs. The patient mostly stays in bed as she declines to get OOB. She is able to transfer to chair with assistance. The
patient has told them that she would prefer to be in another facility however no referrals were made.
Plan confirm with patient she is willing to return to [facility].
[2024-01-31 10:18] LABS: Carbon Dioxide 27 mmol/L (22-30); Estimated Creatinine Clearance > 125 ml/min; Glucose 120 mg/dl (70-99); eGFR > 60.00
[2024-01-31 11:13] LABS: Blood Urea Nitrogen 10 mg/dl (7-17); Calcium 8.1 mg/dl (8.4-10.2); Chloride 103 mmol/L (98-107); Magnesium 1.8 mg/dl (1.6-2.3); Phosphorus 3.2 mg/dl (2.5-4.5); Potassium 3.6 mmol/L (3.5-5.1); Sodium 136 mmol/L (135-145)
--- NOTE | 2024-01-31 11:23 | W.PN.GI.CBS2 ---
Addendum entered and electronically signed by Hiren Mckinney MD 01/31/24 13:28:
I saw and examined the patient.
The PLANS EXAMINER or PA's note was reviewed and I agree with the note.
Comment: No complaints. No further vomiting.
ABD soft NT
REC:
EGD tomorrow
Hold Eliquis.
Bowel regimen to promote BMs
Trend Hgb
Original Note:
Today's Communication / Plan
-
Clear liquid diet. Slowly reintroduce bowel regimen. Consider EGD tomorrow after Eliquis washout. Trend H&H. Continue to hold Eliquis.
Assessment / Plan
-
The patient is a 48-year-old female with a past medical history significant for CVA with left hemiparesis, morbid obesity, bipolar disorder, anxiety, HLD, DVT/PE on Eliquis, history of peptic ulcer disease with perforation, GERD, gastric bypass,
history of migraines, DM2, chronic narcotics secondary to chronic pain syndrome, ambulatory dysfunction, who presented to the emergency room with complaints of recurrent coffee-ground emesis. We are being asked to evaluate for the presenting
symptoms with concern for possible GI bleed. The patient is a poor historian, but with reported recent admission at [facility] with similar symptoms, with reported findings significant for constipation and started on a bowel regimen without
endoscopic evaluation. She presents here with nausea and vomiting with coffee-ground emesis with abdominal pain with large volume emesis output along with drifting hemoglobin. Now with low-grade fevers, mild hypoxia requiring supplemental oxygen,
and leukocytosis concerning for possible aspiration. Labs showing WBC 12.6, hemoglobin 11.2. Started on PPI drip, IV antiemetics, and made n.p.o. for further evaluation by GI.
01/30/24 Obstruction series: 'Low lung volumes. Hazy opacity over the right upper lung as above, question artifact. As warranted, this could be further evaluated with a follow-up exam with PA and lateral projections.
Nonobstructive bowel gas pattern. Moderate volume of stool within the colon.'
Problem list:
-Coffee-ground emesis
-Abdominal pain
-Mild anemia
-Low-grade fever
-Leukocytosis, ?Sepsis picture
-Tachycardia
-History of perforated peptic ulcer
-GERD
-History of gastric bypass
-Ambulatory dysfunction, secondary to left-sided hemiparesis after CVA
-Constipation, likely chronic
-History of DVT/PE on Eliquis
Other pertinent medical history:
-Morbid obesity
-Bipolar disorder
-anxiety
-Insulin-dependent DM2
-Chronic pain syndrome with chronic narcotic use
-Ambulatory dysfunction/bedbound
Recommendations:
-Etiology of coffee-ground emesis possibly secondary to upper GI bleed given history of perforated gastric ulcer versus constipation versus other.
---Obstruction series showing moderate fecal burden without evidence of obstruction
-Await records from [place]
-Given drop of hemoglobin to 9.2, would benefit from EGD given her history of perforated gastric ulcer on Eliquis
-Continue PPI drip
-Continue to hold Eliquis
-Trend H&H and transfuse as needed to keep hemoglobin greater than 7
-Will offer clear liquids today with no red
-IV Zosyn as per hospitalist for possible aspiration pneumonia
-Will slowly reintroduce bowel regimen to prevent constipation
-Will follow
Subjective
Subjective
Date of Service: January 31, 2024
The patient was seen and examined at the bedside. She offers no complaints today aside from a some lower extremity discomfort as her Lyrica has been held. She denies any further nausea, vomiting, or abdominal pain. She is moving her bowels as per
nursing.
Objective
Data Reviewed
Laboratory Data:
Laboratory Results
01/31/24 09:21
01/31/24 09:21
Laboratory Results
PT 14.1 Sec (11.4-14.6) 01/30/24 04:16
INR 1.10 01/30/24 04:16
APTT 34.4 Sec (23.4-35.0) 01/30/24 04:16
Phosphorus 3.2 mg/dl (2.5-4.5) 01/31/24 09:21
Magnesium 1.8 mg/dl (1.6-2.3) 01/31/24 09:21
Total Bilirubin 0.5 mg/dl (0.2-1.3) 01/30/24 04:16
AST 16 U/L (14-36) 01/30/24 04:16
ALT 14 U/L (0-35) 01/30/24 04:16
Alkaline Phosphatase 102 U/L (38-126) 01/30/24 04:16
Lipase 51 U/L (23-300) 01/30/24 04:16
Vital Signs and I&O:
Vital Signs
Temp Pulse Resp BP Pulse Ox
98.7 F 70 16 127/69 94
01/31/24 11:20 01/31/24 10:00 01/31/24 10:00 01/31/24 10:00 01/31/24 10:00
I&O
01/30/24 01/31/24 02/01/24
06:59 06:59 06:59
Intake Total 520 / 520 50 / 50
Output Total 1500 / 1500 600 / 600
Balance -980 / -980 -550 / -550
Physical Exam
Physical Exam
HEENT: Anicteric
Cardiology: Normal Sinus Rhythm, S1 and S2
Pulmonary: Clear (Overall diminished breath sounds)
GI: Soft, Non Distended, Non Tender, Normal Bowel Sounds and Other (Obese abdomen)
Neuro: Non Focal
--- NOTE | 2024-01-31 13:28 | W.PN.UPDATE ---
Update Note
Progress Note Update
For billing purposes
--- NOTE | 2024-01-31 14:01 | PTCARENOTE ---
Pt refused 1200 accu check now for tx to 324 report given
[2024-01-31] MEDS: FLUSH (NSS) 1 FLUSH IV (14:13)
[2024-01-31] MEDS: NSS (PRESERVATIVE FREE) IV (14:56)
--- NOTE | 2024-01-31 16:17 | PTCARENOTE ---
pt arrived to unit at 1430 via stretcher from IMU. pt aaox3, paralyzed on L side, pulled over to bed. VSS. placed on tele number 4 running NSR. assessment completed by this nurse.
[2024-01-31] MEDS: UNASYN IV ×2 (18:26→23:27)
[2024-01-31] MEDS: SENOKOT-S 1 TABLET PO (21:04)
[2024-01-31] MEDS: REFRESH EYE DROPS (PF) 1 DROPS OPHTH (23:32)
[2024-02-01] VITALS (8 sets, daily range): BP systolic 19–145; BP diastolic 58–87
[2024-02-01] MEDS: DILAUDID 0.5 MG IV ×4 (01:25→11:46)
--- NOTE | 2024-02-01 04:44 | DOWNTIME ---
There was a [employer] Downtime on 02/01/2024 from 0100 to 02/01/2024 at 0439. Downtime documentation of patient's care, including medication administrations, has been reconciled in the electronic record per guidelines. Refer to the
patient's paper chart under the miscellaneous tab to see printed paper medication records and downtime forms.
[2024-02-01] MEDS: UNASYN IV ×3 (05:19→18:02)
[2024-02-01] MEDS: PROTONIX 100 IV (05:26)
[2024-02-01] MEDS: ATIVAN 1 MG IV ×2 (06:04→11:45)
[2024-02-01] MEDS: NSS (PRESERVATIVE FREE) 0.5 ML IV ×2 (06:06→11:44)
[2024-02-01] MEDS: REFRESH EYE DROPS (PF) 1 DROPS OPHTH ×4 (06:07→16:36)
--- NOTE | 2024-02-01 08:38 | W.PN.HOSP.TC ---
Today's Communication/Plan
-
regular diet resumed post-EGD
pain regimen converted back to home oral pain medications
replete potassium
resume home Eliquis
cont abx
monitor H&H
Assessment / Plan
Assessment / Plan
Physical Exam
General: No acute distress, Morbidly Obese
HEENT: NormoCephalic, Anicteric, PERRLA
Respiratory: Clear to auscultation
Cardiac: S1/S2, Regular Rhythm and Tachycardia
GI: Soft, Non Tender, Hyperactive Bowel Sounds.
Musculoskeletal: left sided hemiplegia baseline per patient
Skin: Warm
Neuro: Alert oriented x 3
Psych: Calm
48F CVA residual left-sided hemiplegia, chronic bed bound, HX DVT/PE s/p IVCF , chr Eliquis , chr narcotic dependent pain syndrome, T2 DM, peptic ulcer disease with HX perforated gastric ulcer and GERD p/w coffee ground emesis nausea vomiting
recently admitted at [facility] for the same (01/22 - 01/27/24) reportedly diagnosed with severe constipation, no EGD done. Patient later developed fever with associate tachycardia leukocytosis and Hypoxic Respiratory Failure requiring 4L non-labored
respiration- concerning for Aspiration Sepsis Pneumonia, no hypotension or lactic acidosis.
Recurrent N/V
Recurrent coffee-ground emesis.
Hemodynamically stable - clinically euvolemic.
Possible acute gastritis, peptic ulcer disease, severe constipation
Chr constipation due to chr narcotics depedence pain syndrome
Not on ASA or Plavix
Denied abdominal pain
Reports normal bowel movement 3 days ago
Morbidly obese
Recent admission to [facility] ( 01/22- 01/27/24) with similar acute problem. Refused to go back to [facility]
trend H&H, transfuse goal Hgb 8 due to concern bleeding. initial Hgb 12.7 downtrended, since improved, transfusion not necessary at this time
coffee ground emesis since resolved, EGD appreciated as below, home Eliquis held on admission since resumed following discussion/clearance with GI
PPI
IV Reglan PRN, home prn zofran switched to Tigan d/t QT prolongation concerns
GI consult appreciated
-Obstruction Series appreciated constipation no obstruction
-EGD appreciated LA Grade D reflux esophagitis with no bleeding.
- A sleeve gastrectomy was found, characterized by
healthy appearing mucosa.
- Normal examined duodenum.
- No specimens collected
-Regular diet and home oral meds resumed
Sepsis Aspiration PNA (Leukocytosis, Tachycardia, Fever) since resolved
Acute Hypoxic respiratory failure requiring 4L to maintain saturations
-prn Tylenol
-blood cultures NGTD
-weaned off oxygen supplementation, stable respiratory status on room air
-empiric zosyn de-escalated to unasyn, switch to oral abx in next 24 hours
Chronic Pain Syndrome Narcotic dependent
home long acting morphine scheduled oxycodone converted to fentanyl patch and prn dilaudid while strict NPO
converted back to home oral regimen with restart regular diet
Home scheduled Ativan converted to IV while strict NPO converted back to oral with instructions to hold if sedated
QT prolongation
limit QT prolonging agents as possible
cont panel monitor
QT prolongation since resolved
Tigan converted back to zofran as needed.
Hx DVT/PE s/p IVC filter chronic Eliquis
-Eliquis on hold as above
-Venous duplex appreciated chronic DVT LLE, no DVT noted RLE peroneal veins not well seen
Hypokalemia
monitor and replete as necessary
reported hx DM- low dose sliding scale for now. A1c appreciated 5.3 non-diabetic (inaccurate if patient has received blood transfusion recently)
Sugars otherwise well controlled without need for insulin correction
ok to discontinue routine FS monitoring
HX cerebellar stroke with left hemiparesis, chronically bedbound for the past 7 years
Previous abdominal surgery (Prior history of gastric bypass 2004)
Psychiatric illness
DVT Px: Eliquis
Full code
Discussed with patient at bedside and patient's father Fernandez over phone
I spent a total of 50 minutes with the patient or on the floor. More than 50% of this time involved counseling and coordination of care.
Anticipated Discharge: 24 - 48 hours
Subjective/Interval History
-
Date of Service: February 01, 2024
Seen and examined at bedside prior to EGD today. No acute distress appears comfortable at this time.
Objective Data
-
Labs:
Laboratory Results
02/01/24
06:00
WBC Pending
Hgb Pending
Hct Pending
Plt Count Pending
Sodium Pending
Potassium Pending
Chloride Pending
Carbon Dioxide Pending
BUN Pending
Creatinine Pending
Glucose Pending
Calcium Pending
Vital Signs:
Vital Signs
Temp Pulse Resp BP Pulse Ox
97.9 F 69 18 107/58 94
02/01/24 03:00 02/01/24 03:00 02/01/24 03:00 02/01/24 03:00 02/01/24 03:00
I&O
01/31/24 02/01/24 02/02/24
06:59 06:59 06:59
Intake Total 50 / 50 2400 / 2400
Output Total 600 / 600 300 / 300
Balance -550 / -550 2100 / 2100
[2024-02-01] MEDS: SENOKOT-S PO (08:46)
[2024-02-01] MEDS: ZADITOR OPHTH ×2 (08:46→21:28)
[2024-02-01] MEDS: DESENEX/MITRAZOL/ZEASORB 1 APPLIC TOPICAL ×2 (08:50→21:26)
[2024-02-01] MEDS: NSS 1000 IV (08:51)
[2024-02-01 10:31] LABS: Hematocrit 28.5 % (37.0-47.0); Hemoglobin 9.6 g/dL (12.0-16.0); Mean Corp Hgb Conc. 33.7 g/dL (33.0-37.0); Mean Corpuscular Hgb 28.6 pg (27.0-31.0); Mean Corpuscular Volume 84.8 fL (81.0-99.0); Mean Platelet Volume 10.2 fL (7.4-10.4); Platelet Count 238 10^3/uL (130-400); Red Blood Cell Count 3.36 10^6/uL (4.20-5.40); Red Cell Dist. Width 14.9 % (11.5-14.5); White Blood Cell Count 4.4 10^3/uL (4.8-10.8)
[2024-02-01 11:07] LABS: Blood Urea Nitrogen 5 mg/dl (7-17); Calcium 7.6 mg/dl (8.4-10.2); Carbon Dioxide 25 mmol/L (22-30); Chloride 108 mmol/L (98-107); Estimated Creatinine Clearance > 125 ml/min; Glucose 105 mg/dl (70-99); Magnesium 1.8 mg/dl (1.6-2.3); Phosphorus 2.7 mg/dl (2.5-4.5); Potassium 3.3 mmol/L (3.5-5.1); Sodium 136 mmol/L (135-145); eGFR > 60.00
[2024-02-01] MEDS: KCL PO (11:31)
[2024-02-01 12:17] LABS: Glucose - Point of Care 108 mg/dl (70-99)
--- NOTE | 2024-02-01 15:10 | W.PN.UPDATE ---
Update Note
Progress Note Update
EGD done
Severe Grade D esophagitis, non-bleeding
Gastric sleeve anatomy
REC:
Regular diet
Change protonix BID
[2024-02-01 15:58] LABS: Glucose - Point of Care 104 mg/dl (70-99)
[2024-02-01] MEDS: PROTONIX IV (16:04)
[2024-02-01] MEDS: KCL 40 MEQ PO (16:37)
[2024-02-01] MEDS: LYRICA 200 MG PO ×2 (16:42→21:29)
[2024-02-01] MEDS: NSS (PRESERVATIVE FREE) IV (17:31)
[2024-02-01] MEDS: ATIVAN 1 MG PO (17:31)
[2024-02-01] MEDS: ROXICODONE 20 MG PO ×2 (17:32→21:30)
[2024-02-01] MEDS: ELIQUIS 5 MG PO (21:26)
[2024-02-01] MEDS: PROTONIX 40 MG PO (21:27)
[2024-02-01] MEDS: MS CONTIN (EXTENDED RELEASE) 60 MG PO (21:27)
[2024-02-01] MEDS: SENOKOT-S 1 TABLET PO (21:28)
[2024-02-01] MEDS: ELAVIL 25 MG PO (21:28)
[2024-02-01] MEDS: MIRALAX PO (21:28)
[2024-02-01] MEDS: MELATONIN 3 MG PO (21:29)
[2024-02-01] MEDS: LIPITOR 40 MG PO (21:29)
[2024-02-01] MEDS: LIORESAL 10 MG PO (21:29)
[2024-02-01] MEDS: FIORICET 1 TAB PO (21:36)
[2024-02-02] MEDS: NSS 1000 IV (00:02)
[2024-02-02] MEDS: ATIVAN 1 MG PO ×5 (00:03→23:45)
[2024-02-02] MEDS: UNASYN IV ×2 (00:03→06:19)
[2024-02-02] MEDS: NSS (PRESERVATIVE FREE) IV (00:44)
[2024-02-02] MEDS: REFRESH EYE DROPS (PF) 1 DROPS OPHTH ×2 (03:14→23:45)
[2024-02-02 03:56] VITALS: BP 129/87
[2024-02-02 06:50] LABS: Hematocrit 26.8 % (37.0-47.0); Hemoglobin 8.5 g/dL (12.0-16.0); Mean Corp Hgb Conc. 31.7 g/dL (33.0-37.0); Mean Corpuscular Hgb 28.4 pg (27.0-31.0); Mean Corpuscular Volume 89.6 fL (81.0-99.0); Mean Platelet Volume 10.2 fL (7.4-10.4); Platelet Count 199 10^3/uL (130-400); Red Blood Cell Count 2.99 10^6/uL (4.20-5.40); Red Cell Dist. Width 14.7 % (11.5-14.5); White Blood Cell Count 4.2 10^3/uL (4.8-10.8)
[2024-02-02 07:00] VITALS: BP 118/74
[2024-02-02 07:00] LABS: Blood Urea Nitrogen 2 mg/dl (7-17); Calcium 7.6 mg/dl (8.4-10.2); Carbon Dioxide 26 mmol/L (22-30); Chloride 110 mmol/L (98-107); Estimated Creatinine Clearance > 125 ml/min; Glucose 106 mg/dl (70-99); Magnesium 1.9 mg/dl (1.6-2.3); Phosphorus 3.3 mg/dl (2.5-4.5); Potassium 3.4 mmol/L (3.5-5.1); Sodium 138 mmol/L (135-145); eGFR > 60.00
--- NOTE | 2024-02-02 07:28 | W.PN.HOSP.TC ---
Today's Communication/Plan
-
replete potassium
cont abx, switched to Augmentin, total 5 days abx planned
monitor H&H
possible discharge back to [facility] tomorrow
Assessment / Plan
Assessment / Plan
Physical Exam
General: No acute distress, Morbidly Obese
HEENT: NormoCephalic, Anicteric, PERRLA
Respiratory: Clear to auscultation
Cardiac: S1/S2, Regular Rhythm and Tachycardia
GI: Soft, Non Tender, Hyperactive Bowel Sounds.
Musculoskeletal: left sided hemiplegia baseline per patient
Skin: Warm
Neuro: Alert oriented x 3
Psych: Calm
48F CVA residual left-sided hemiplegia, chronic bed bound, HX DVT/PE s/p IVCF , chr Eliquis , chr narcotic dependent pain syndrome, T2 DM, peptic ulcer disease with HX perforated gastric ulcer and GERD p/w coffee ground emesis nausea vomiting
recently admitted at [place] for the same (01/22 - 01/27/24) reportedly diagnosed with severe constipation, no EGD done. Patient later developed fever with associate tachycardia leukocytosis and Hypoxic Respiratory Failure requiring 4L non-labored
respiration- concerning for Aspiration Sepsis Pneumonia, no hypotension or lactic acidosis.
Recurrent N/V
Recurrent coffee-ground emesis.
Hemodynamically stable - clinically euvolemic.
Possible acute gastritis, peptic ulcer disease, severe constipation
Chr constipation due to chr narcotics depedence pain syndrome
Not on ASA or Plavix
Denied abdominal pain
Reports normal bowel movement 3 days ago
Morbidly obese
Recent admission to [facility] ( 01/22- 01/27/24) with similar acute problem. Refused to go back to [facility]
trend H&H, transfuse goal Hgb 8 due to concern bleeding. initial Hgb 12.7 downtrended, since improved, transfusion not necessary at this time
coffee ground emesis since resolved, EGD appreciated as below, home Eliquis held on admission since resumed following discussion/clearance with GI
PPI
IV Reglan PRN, home prn zofran switched to Tigan d/t QT prolongation concerns
GI consult appreciated
-Obstruction Series appreciated constipation no obstruction
-EGD appreciated LA Grade D reflux esophagitis with no bleeding.
- A sleeve gastrectomy was found, characterized by
healthy appearing mucosa.
- Normal examined duodenum.
- No specimens collected
-Regular diet and home oral meds resumed
-2 months PPI BID then daily as per GI
Sepsis Aspiration PNA (Leukocytosis, Tachycardia, Fever) since resolved
Acute Hypoxic respiratory failure requiring 4L to maintain saturations
-prn Tylenol
-blood cultures NGTD
-weaned off oxygen supplementation, stable respiratory status on room air
-empiric zosyn de-escalated to unasyn, converted to oral abx Augmentin, planning for 5 days total abx then stop
Chronic Pain Syndrome Narcotic dependent
home long acting morphine scheduled oxycodone converted to fentanyl patch and prn dilaudid while strict NPO
converted back to home oral regimen with restart regular diet
Home scheduled Ativan converted to IV while strict NPO converted back to oral with instructions to hold if sedated
QT prolongation
limit QT prolonging agents as possible
cont wrapper opener
QT prolongation since resolved
Tigan converted back to zofran as needed.
Hx DVT/PE s/p IVC filter chronic Eliquis
-Eliquis on hold as above
-Venous duplex appreciated chronic DVT LLE, no DVT noted RLE peroneal veins not well seen
Hypokalemia
monitor and replete as necessary
reported hx DM- low dose sliding scale for now. A1c appreciated 5.3 non-diabetic (inaccurate if patient has received blood transfusion recently)
Sugars otherwise well controlled without need for insulin correction
ok to discontinue routine FS monitoring
HX cerebellar stroke with left hemiparesis, chronically bedbound for the past 7 years
Previous abdominal surgery (Prior history of gastric bypass 2004)
Psychiatric illness
DVT Px: Eliquis
Full code
I spent a total of 53 minutes with the patient or on the floor. More than 50% of this time involved counseling and coordination of care.
Anticipated Discharge: Within 24 hours
Subjective/Interval History
-
Date of Service: February 02, 2024
No acute distress, appears comfortable at this time. Denies current constipation nausea vomiting. Tolerating diet.
Objective Data
-
Labs:
Laboratory Results
02/02/24
06:18
WBC 4.2 L
Hgb 8.5 L
Hct 26.8 L
Plt Count 199
Sodium 138
Potassium 3.4 L
Chloride 110 H
Carbon Dioxide 26
BUN 2 L
Creatinine 0.4 L
Glucose 106 H
Calcium 7.6 L
Vital Signs:
Vital Signs
Temp Pulse Resp BP Pulse Ox
97.7 F 66 17 129/87 96
02/02/24 03:56 02/02/24 03:56 02/02/24 03:56 02/02/24 03:56 02/02/24 03:56
I&O
02/01/24 02/02/24 02/03/24
06:59 06:59 06:59
Intake Total 2400 / 2400 2400 / 2400
Output Total 300 / 300
Balance 2100 / 2100 2400 / 2400
[2024-02-02] MEDS: LIORESAL 10 MG PO ×3 (08:37→22:14)
[2024-02-02] MEDS: MIRALAX PO ×2 (08:37→22:13)
[2024-02-02] MEDS: CLARITIN 10 MG PO (08:37)
[2024-02-02] MEDS: ROXICODONE 20 MG PO ×4 (08:38→22:14)
[2024-02-02] MEDS: LYRICA 200 MG PO ×3 (08:38→22:14)
[2024-02-02] MEDS: VITAMIN D3 (cholecalciferol) 50 MCG PO (08:38)
[2024-02-02] MEDS: ELIQUIS 5 MG PO ×2 (08:38→22:13)
[2024-02-02] MEDS: MS CONTIN (EXTENDED RELEASE) 60 MG PO ×2 (08:39→22:14)
[2024-02-02] MEDS: SENOKOT-S 1 TABLET PO ×2 (08:39→22:14)
[2024-02-02] MEDS: PROTONIX 40 MG PO ×2 (08:40→22:14)
[2024-02-02] MEDS: DESENEX/MITRAZOL/ZEASORB 1 APPLIC TOPICAL ×2 (08:42→22:13)
[2024-02-02] MEDS: AUGMENTIN 875 MG/125 MG 1 TABLET PO ×2 (10:05→22:13)
[2024-02-02] MEDS: ZADITOR 1 DROP OPHTH (10:41)
--- NOTE | 2024-02-02 10:42 | W.PN.GI.CBS2 ---
Today's Communication / Plan
-
No further vomiting
Cont Protonix BID x 2 months, then daily
Will sign off. Please call back if needed
Assessment / Plan
-
The patient is a 48-year-old female with a past medical history significant for CVA with left hemiparesis, morbid obesity, bipolar disorder, anxiety, HLD, DVT/PE on Eliquis, history of peptic ulcer disease with perforation, GERD, gastric bypass,
history of migraines, DM2, chronic narcotics secondary to chronic pain syndrome, ambulatory dysfunction, who presented to the emergency room with complaints of recurrent coffee-ground emesis. We are being asked to evaluate for the presenting
symptoms with concern for possible GI bleed. The patient is a poor historian, but with reported recent admission at [facility] with similar symptoms, with reported findings significant for constipation and started on a bowel regimen without
endoscopic evaluation. She presents here with nausea and vomiting with coffee-ground emesis with abdominal pain with large volume emesis output along with drifting hemoglobin. Now with low-grade fevers, mild hypoxia requiring supplemental oxygen,
and leukocytosis concerning for possible aspiration. Labs showing WBC 12.6, hemoglobin 11.2. Started on PPI drip, IV antiemetics, and made n.p.o. for further evaluation by GI.
01/30/24 Obstruction series: 'Low lung volumes. Hazy opacity over the right upper lung as above, question artifact. As warranted, this could be further evaluated with a follow-up exam with PA and lateral projections.
Nonobstructive bowel gas pattern. Moderate volume of stool within the colon.'
02/01/24 EGD- Grade D esophagitis. Gastric sleeve appearance to stomach. In retrospect, perhaps she had revision of her GBS at time of ulcer perforation and anatomy may be post-revision anatomy.
Problem list:
-Coffee-ground emesis
-Abdominal pain
-Mild anemia
-Low-grade fever
-Leukocytosis, ?Sepsis picture
-Tachycardia
-History of perforated peptic ulcer following GBS.
-GERD
-History of gastric bypass
-Ambulatory dysfunction, secondary to left-sided hemiparesis after CVA
-Constipation, likely chronic
-History of DVT/PE on Eliquis
Other pertinent medical history:
-Morbid obesity
-Bipolar disorder
-anxiety
-Insulin-dependent DM2
-Chronic pain syndrome with chronic narcotic use
-Ambulatory dysfunction/bedbound
Subjective
Subjective
Date of Service: February 02, 2024
No further vomiting. Denies abd pain. Did not sleep well
Objective
Data Reviewed
Laboratory Data:
Laboratory Results
02/02/24 06:18
02/02/24 06:18
Laboratory Results
PT 14.1 Sec (11.4-14.6) 01/30/24 04:16
INR 1.10 01/30/24 04:16
APTT 34.4 Sec (23.4-35.0) 01/30/24 04:16
Phosphorus 3.3 mg/dl (2.5-4.5) 02/02/24 06:18
Magnesium 1.9 mg/dl (1.6-2.3) 02/02/24 06:18
Total Bilirubin 0.5 mg/dl (0.2-1.3) 01/30/24 04:16
AST 16 U/L (14-36) 01/30/24 04:16
ALT 14 U/L (0-35) 01/30/24 04:16
Alkaline Phosphatase 102 U/L (38-126) 01/30/24 04:16
Lipase 51 U/L (23-300) 01/30/24 04:16
Vital Signs and I&O:
Vital Signs
Temp Pulse Resp BP Pulse Ox
97.3 F 60 16 118/74 99
02/02/24 07:00 02/02/24 07:00 02/02/24 07:00 02/02/24 07:00 02/02/24 07:00
I&O
02/01/24 02/02/24 02/03/24
06:59 06:59 06:59
Intake Total 2400 / 2400 2400 / 2400
Output Total 300 / 300
Balance 2099 / 2099 2400 / 2400
Physical Exam
Physical Exam
GI: Soft, Non Distended and Non Tender
[2024-02-02 11:00] VITALS: BP 94/52
[2024-02-02] MEDS: KCL 40 MEQ PO (12:28)
[2024-02-02 15:00] VITALS: BP 106/64
[2024-02-02 20:01] VITALS: BP 101/72
[2024-02-02] MEDS: LIPITOR 40 MG PO (22:14)
[2024-02-02] MEDS: MELATONIN 3 MG PO (22:14)
[2024-02-02] MEDS: ELAVIL 25 MG PO (22:14)
[2024-02-02 23:31] VITALS: BP 113/55
[2024-02-02] MEDS: ZADITOR OPHTH (23:39)
[2024-02-03 03:05] VITALS: BP 99/54
[2024-02-03] MEDS: ATIVAN 1 MG PO ×4 (05:54→23:26)
[2024-02-03 06:49] LABS: Hemoglobin 8.6 g/dL (12.0-16.0); Mean Corp Hgb Conc. 33.1 g/dL (33.0-37.0); Mean Corpuscular Hgb 28.8 pg (27.0-31.0); Mean Platelet Volume 10.2 fL (7.4-10.4); Platelet Count 211 10^3/uL (130-400); Red Blood Cell Count 2.99 10^6/uL (4.20-5.40); White Blood Cell Count 4.5 10^3/uL (4.8-10.8)
[2024-02-03 06:52] LABS: Blood Urea Nitrogen 4 mg/dl (7-17); Calcium 7.6 mg/dl (8.4-10.2); Carbon Dioxide 27 mmol/L (22-30); Chloride 108 mmol/L (98-107); Estimated Creatinine Clearance > 125 ml/min; Glucose 105 mg/dl (70-99); Magnesium 1.9 mg/dl (1.6-2.3); Phosphorus 3.7 mg/dl (2.5-4.5); Potassium 3.6 mmol/L (3.5-5.1); Sodium 135 mmol/L (135-145); eGFR > 60.00
[2024-02-03 08:42] VITALS: BP 105/87
[2024-02-03] MEDS: LIORESAL 10 MG PO ×3 (08:57→21:52)
[2024-02-03] MEDS: SENOKOT-S 1 TABLET PO (08:57)
[2024-02-03] MEDS: ROXICODONE 20 MG PO ×4 (08:57→23:25)
[2024-02-03] MEDS: VITAMIN D3 (cholecalciferol) 50 MCG PO (08:57)
[2024-02-03] MEDS: MS CONTIN (EXTENDED RELEASE) 60 MG PO ×2 (08:57→21:50)
[2024-02-03] MEDS: CLARITIN 10 MG PO (08:58)
[2024-02-03] MEDS: DESENEX/MITRAZOL/ZEASORB 1 APPLIC TOPICAL ×2 (08:58→21:54)
[2024-02-03] MEDS: LYRICA 200 MG PO ×3 (08:58→21:49)
[2024-02-03] MEDS: ELIQUIS 5 MG PO ×2 (08:59→21:52)
[2024-02-03] MEDS: AUGMENTIN 875 MG/125 MG 1 TABLET PO ×2 (08:59→21:48)
[2024-02-03] MEDS: PROTONIX 40 MG PO ×2 (08:59→21:48)
[2024-02-03] MEDS: MIRALAX 17 GRAMS PO (08:59)
[2024-02-03] MEDS: ZADITOR 1 DROP OPHTH (09:00)
--- NOTE | 2024-02-03 09:36 | W.PN.HOSP.TC ---
Today's Communication/Plan
-
cont abx
monitor H&H
discharge planning SNF
Assessment / Plan
Assessment / Plan
Physical Exam
General: No acute distress, Morbidly Obese
HEENT: NormoCephalic, Anicteric, PERRLA
Respiratory: Clear to auscultation
Cardiac: S1/S2, Regular Rhythm and Tachycardia
GI: Soft, Non Tender, Hyperactive Bowel Sounds.
Musculoskeletal: left sided hemiplegia baseline per patient
Skin: Warm
Neuro: Alert oriented x 3
Psych: Calm
48F CVA residual left-sided hemiplegia, chronic bed bound, HX DVT/PE s/p IVCF , chr Eliquis , chr narcotic dependent pain syndrome, T2 DM, peptic ulcer disease with HX perforated gastric ulcer and GERD p/w coffee ground emesis nausea vomiting
recently admitted at [place] for the same (01/22 - 01/27/24) reportedly diagnosed with severe constipation, no EGD done. Patient later developed fever with associate tachycardia leukocytosis and Hypoxic Respiratory Failure requiring 4L non-labored
respiration- concerning for Aspiration Sepsis Pneumonia, no hypotension or lactic acidosis.
Recurrent N/V
Recurrent coffee-ground emesis.
Hemodynamically stable - clinically euvolemic.
Possible acute gastritis, peptic ulcer disease, severe constipation
Chr constipation due to chr narcotics depedence pain syndrome
Not on ASA or Plavix
Denied abdominal pain
Reports normal bowel movement 3 days ago
Morbidly obese
Recent admission to [facility] ( 01/22- 01/27/24) with similar acute problem. Refused to go back to [facility]
trend H&H, transfuse goal Hgb 8 due to concern bleeding. initial Hgb 12.7 downtrended, since improved, transfusion not necessary at this time
coffee ground emesis since resolved, EGD appreciated as below, home Eliquis held on admission since resumed following discussion/clearance with GI
PPI
IV Reglan PRN, home prn zofran switched to Tigan d/t QT prolongation concerns
GI consult appreciated
-Obstruction Series appreciated constipation no obstruction
-EGD appreciated LA Grade D reflux esophagitis with no bleeding.
- A sleeve gastrectomy was found, characterized by
healthy appearing mucosa.
- Normal examined duodenum.
- No specimens collected
-Regular diet and home oral meds resumed
-2 months PPI BID then daily as per GI
Sepsis Aspiration PNA (Leukocytosis, Tachycardia, Fever) since resolved
Acute Hypoxic respiratory failure requiring 4L to maintain saturations
-prn Tylenol
-blood cultures NGTD
-weaned off oxygen supplementation, stable respiratory status on room air
-empiric zosyn de-escalated to unasyn, converted to oral abx Augmentin, planning for 5 days total abx then stop
Chronic Pain Syndrome Narcotic dependent
home long acting morphine scheduled oxycodone converted to fentanyl patch and prn dilaudid while strict NPO
converted back to home oral regimen with restart regular diet
Home scheduled Ativan converted to IV while strict NPO converted back to oral with instructions to hold if sedated
QT prolongation
limit QT prolonging agents as possible
cont monitoring and evaluation advisor
QT prolongation since resolved
Tigan converted back to zofran as needed.
Hx DVT/PE s/p IVC filter chronic Eliquis
-Eliquis on hold as above
-Venous duplex appreciated chronic DVT LLE, no DVT noted RLE peroneal veins not well seen
Hypokalemia
monitor and replete as necessary
reported hx DM- low dose sliding scale for now. A1c appreciated 5.3 non-diabetic (inaccurate if patient has received blood transfusion recently)
Sugars otherwise well controlled without need for insulin correction
ok to discontinue routine FS monitoring
HX cerebellar stroke with left hemiparesis, chronically bedbound for the past 7 years
Previous abdominal surgery (Prior history of gastric bypass 2004)
Psychiatric illness
DVT Px: Eliquis
Full code
Case Mgmt Consult appreciated, patient prefers to change facilities From [facility] to [place], referral made, pending determination
I spent a total of 53 minutes with the patient or on the floor. More than 50% of this time involved counseling and coordination of care.
Anticipated Discharge: Within 24 hours
Subjective/Interval History
-
Date of Service: February 03, 2024
Appears well denies new acute issues at this time.
Objective Data
-
Labs:
Laboratory Results
02/03/24
06:21
WBC 4.5 L
Hgb 8.6 L
Hct 26.0 L
Plt Count 211
Sodium 135
Potassium 3.6
Chloride 108 H
Carbon Dioxide 27
BUN 4 L
Creatinine 0.5 L
Glucose 105 H
Calcium 7.6 L
Vital Signs:
Vital Signs
Temp Pulse Resp BP Pulse Ox
97.8 F 68 16 105/87 99
02/03/24 08:42 02/03/24 08:42 02/03/24 08:42 02/03/24 08:42 02/03/24 08:42
I&O
02/02/24 02/03/24 02/04/24
06:59 06:59 06:59
Intake Total 2400 / 2400 1979
Balance 2400 / 2400 1979
[2024-02-03 11:30] VITALS: BP 81/46
[2024-02-03] MEDS: NSS 500 IV (13:15)
--- NOTE | 2024-02-03 14:54 | CM ---
Addendum entered by STACI Han 02/06/24 11:11:
Late Entry Note (Friday 02/02), Received return call from Yesenia in admissions at [facility] who denied bed availability for patient. Will update.
Addendum entered by STACI Han 02/03/24 15:00:
Patient stated that her cell # is [phone]
Original Note:
Spoke with Vania in admissions at [facility] who stated that they would preferr, if possible, patient find a different NH as she has made multiple complaints and is unhappy there. Ultimately Vania stated that they would take back if no other
facility will take her.
Reviewed chart met with patient to discuss referral. Patient stated that she wants to go to [facility] as she has a friend who is an RN who works there.
Placed a referral through [employer]. Will await determination.
Plan: Case management will continue to follow and assist with discharge planning. Transfer back to [facility] or [facility] if they can accept.
[2024-02-03 15:00] VITALS: BP 91/77
[2024-02-03] MEDS: REFRESH EYE DROPS (PF) 1 DROPS OPHTH ×2 (16:27→21:44)
[2024-02-03 20:12] VITALS: BP 126/61
[2024-02-03] MEDS: MELATONIN 3 MG PO (21:51)
[2024-02-03] MEDS: LIPITOR 40 MG PO (21:52)
[2024-02-03] MEDS: ELAVIL 25 MG PO (21:53)
[2024-02-03] MEDS: ZADITOR OPHTH (21:54)
[2024-02-03] MEDS: MIRALAX PO (21:55)
[2024-02-03] MEDS: SENOKOT-S PO (23:27)
[2024-02-03 23:32] VITALS: BP 114/67
[2024-02-04] MEDS: REFRESH EYE DROPS (PF) OPHTH (00:30)
[2024-02-04 03:33] VITALS: BP 103/43
[2024-02-04] MEDS: REFRESH EYE DROPS (PF) 1 DROPS OPHTH ×5 (05:42→20:50)
[2024-02-04] MEDS: ATIVAN 1 MG PO ×4 (05:42→23:09)
--- NOTE | 2024-02-04 07:02 | W.PN.HOSP.TC ---
Today's Communication/Plan
-
Medically stable for discharge pending placement
Assessment / Plan
Assessment / Plan
Physical Exam
General: No acute distress, Morbidly Obese
HEENT: NormoCephalic, Anicteric, PERRLA
Respiratory: Clear to auscultation
Cardiac: S1/S2, Regular Rhythm and Tachycardia
GI: Soft, Non Tender, Hyperactive Bowel Sounds.
Musculoskeletal: left sided hemiplegia baseline per patient
Skin: Warm
Neuro: Alert oriented x 3
Psych: Calm
48F CVA residual left-sided hemiplegia, chronic bed bound, HX DVT/PE s/p IVCF , chr Eliquis , chr narcotic dependent pain syndrome, T2 DM, peptic ulcer disease with HX perforated gastric ulcer and GERD p/w coffee ground emesis nausea vomiting
recently admitted at [place] for the same (01/22 - 01/27/24) reportedly diagnosed with severe constipation, no EGD done. Patient later developed fever with associate tachycardia leukocytosis and Hypoxic Respiratory Failure requiring 4L non-labored
respiration- concerning for Aspiration Sepsis Pneumonia, no hypotension or lactic acidosis.
Recurrent N/V
Recurrent coffee-ground emesis.
Hemodynamically stable - clinically euvolemic.
Possible acute gastritis, peptic ulcer disease, severe constipation
Chr constipation due to chr narcotics depedence pain syndrome
Not on ASA or Plavix
Denied abdominal pain
Reports normal bowel movement 3 days ago
Morbidly obese
Recent admission to [facility] ( 01/22- 01/27/24) with similar acute problem. Refused to go back to [facility]
trend H&H, transfuse goal Hgb 8 due to concern bleeding. initial Hgb 12.7 downtrended, since improved, transfusion not necessary at this time
coffee ground emesis since resolved, EGD appreciated as below, home Eliquis held on admission since resumed following discussion/clearance with GI
PPI
IV Reglan PRN, home prn zofran switched to Tigan d/t QT prolongation concerns
GI consult appreciated
-Obstruction Series appreciated constipation no obstruction
-EGD appreciated LA Grade D reflux esophagitis with no bleeding.
- A sleeve gastrectomy was found, characterized by
healthy appearing mucosa.
- Normal examined duodenum.
- No specimens collected
-Regular diet and home oral meds resumed
-2 months PPI BID then daily as per GI
Sepsis Aspiration PNA (Leukocytosis, Tachycardia, Fever) since resolved
Acute Hypoxic respiratory failure requiring 4L to maintain saturations
-prn Tylenol
-blood cultures NGTD
-weaned off oxygen supplementation, stable respiratory status on room air
-empiric zosyn de-escalated to unasyn, converted to oral abx Augmentin,completed total 5 days abx 02/03
Chronic Pain Syndrome Narcotic dependent
home long acting morphine scheduled oxycodone converted to fentanyl patch and prn dilaudid while strict NPO
converted back to home oral regimen with restart regular diet
Home scheduled Ativan converted to IV while strict NPO converted back to oral with instructions to hold if sedated
QT prolongation
limit QT prolonging agents as possible
cont erp implementation consultant
QT prolongation since resolved
Tigan converted back to zofran as needed.
Hx DVT/PE s/p IVC filter chronic Eliquis
-Eliquis resumed, cont
-Venous duplex appreciated chronic DVT LLE, no DVT noted RLE peroneal veins not well seen
Hypokalemia
monitor and replete as necessary
reported hx DM- low dose sliding scale for now. A1c appreciated 5.3 non-diabetic
Sugars otherwise well controlled without need for insulin correction
ok to discontinue routine FS monitoring
HX cerebellar stroke with left hemiparesis, chronically bedbound for the past 7 years
Previous abdominal surgery (Prior history of gastric bypass 2004)
Psychiatric illness
DVT Px: Eliquis
Full code
Case Mgmt Consult appreciated, patient prefers to change facilities From [facility] to [place], referral made, pending determination
Medically stable for discharge pending placement
I spent a total of 52 minutes with the patient or on the floor. More than 50% of this time involved counseling and coordination of care.
Anticipated Discharge: Within 24 hours
Subjective/Interval History
-
Date of Service: February 04, 2024
No acute distress. Overall reports feeling well. denies new acute issues at this time
Objective Data
-
Labs:
Laboratory Results
02/04/24
06:00
WBC Pending
Hgb Pending
Hct Pending
Plt Count Pending
Sodium Pending
Potassium Pending
Chloride Pending
Carbon Dioxide Pending
BUN Pending
Creatinine Pending
Glucose Pending
Calcium Pending
Vital Signs:
Vital Signs
Temp Pulse Resp BP Pulse Ox
98.1 F 67 20 103/43 97
02/04/24 03:33 02/04/24 03:33 02/04/24 03:33 02/04/24 03:33 02/04/24 03:33
I&O
02/03/24 02/04/24 02/05/24
06:59 06:59 06:59
Intake Total 1979
Output Total 1000 / 1000
Balance 1979 -1000 / -1000
[2024-02-04 07:18] VITALS: BP 126/74
[2024-02-04 07:36] LABS: Hematocrit 26.9 % (37.0-47.0); Hemoglobin 8.6 g/dL (12.0-16.0); Mean Corpuscular Volume 87.6 fL (81.0-99.0); Platelet Count 211 10^3/uL (130-400); Red Blood Cell Count 3.07 10^6/uL (4.20-5.40); Red Cell Dist. Width 14.8 % (11.5-14.5); White Blood Cell Count 4.8 10^3/uL (4.8-10.8)
[2024-02-04 07:56] LABS: Blood Urea Nitrogen 5 mg/dl (7-17); Calcium 8.1 mg/dl (8.4-10.2); Carbon Dioxide 26 mmol/L (22-30); Chloride 107 mmol/L (98-107); Estimated Creatinine Clearance > 125 ml/min; Glucose 106 mg/dl (70-99); Magnesium 1.8 mg/dl (1.6-2.3); Phosphorus 4.2 mg/dl (2.5-4.5); Potassium 3.6 mmol/L (3.5-5.1); Sodium 136 mmol/L (135-145); eGFR > 60.00
[2024-02-04] MEDS: CLARITIN 10 MG PO (08:12)
[2024-02-04] MEDS: PROTONIX 40 MG PO ×2 (08:12→20:49)
[2024-02-04] MEDS: LIORESAL 10 MG PO ×3 (08:12→22:09)
[2024-02-04] MEDS: MS CONTIN (EXTENDED RELEASE) 60 MG PO ×2 (08:12→20:50)
[2024-02-04] MEDS: ROXICODONE 20 MG PO ×4 (08:12→22:10)
[2024-02-04] MEDS: DESENEX/MITRAZOL/ZEASORB 1 APPLIC TOPICAL ×2 (08:13→22:09)
[2024-02-04] MEDS: LYRICA 200 MG PO ×3 (08:13→22:10)
[2024-02-04] MEDS: AUGMENTIN 875 MG/125 MG 1 TABLET PO ×2 (08:13→20:42)
[2024-02-04] MEDS: ELIQUIS 5 MG PO ×2 (08:13→20:50)
[2024-02-04] MEDS: SENOKOT-S 1 TABLET PO ×2 (08:13→20:50)
[2024-02-04] MEDS: MIRALAX PO ×2 (08:14→21:32)
[2024-02-04] MEDS: VITAMIN D3 (cholecalciferol) 50 MCG PO (08:15)
[2024-02-04] MEDS: ZADITOR 1 DROP OPHTH (08:15)
[2024-02-04 11:15] VITALS: BP 109/61
[2024-02-04 15:07] VITALS: BP 131/56
[2024-02-04] MEDS: FIORICET 1 TAB PO ×2 (16:19→22:09)
[2024-02-04 19:00] VITALS: BP 104/56
[2024-02-04] MEDS: ZADITOR OPHTH (21:32)
[2024-02-04] MEDS: MELATONIN 3 MG PO (22:10)
[2024-02-04] MEDS: LIPITOR 40 MG PO (22:10)
[2024-02-04 23:00] VITALS: BP 133/71
[2024-02-04] MEDS: ELAVIL 25 MG PO (23:09)
[2024-02-05] MEDS: REFRESH EYE DROPS (PF) OPHTH ×2 (00:35→03:52)
[2024-02-05] MEDS: ATIVAN 1 MG PO ×4 (05:54→23:13)
--- NOTE | 2024-02-05 06:35 | W.PN.HOSP.TC ---
Today's Communication/Plan
-
Medically stable for discharge pending placement
Assessment / Plan
Assessment / Plan
Physical Exam
General: No acute distress, Morbidly Obese
HEENT: NormoCephalic, Anicteric, PERRLA
Respiratory: Clear to auscultation
Cardiac: S1/S2, Regular Rhythm and Tachycardia
GI: Soft, Non Tender, Hyperactive Bowel Sounds.
Musculoskeletal: left sided hemiplegia baseline per patient
Skin: Warm
Neuro: Alert oriented x 3
Psych: Calm
48F CVA residual left-sided hemiplegia, chronic bed bound, HX DVT/PE s/p IVCF , chr Eliquis , chr narcotic dependent pain syndrome, T2 DM, peptic ulcer disease with HX perforated gastric ulcer and GERD p/w coffee ground emesis nausea vomiting
recently admitted at [place] for the same (01/22 - 01/27/24) reportedly diagnosed with severe constipation, no EGD done. Patient later developed fever with associate tachycardia leukocytosis and Hypoxic Respiratory Failure requiring 4L non-labored
respiration- concerning for Aspiration Sepsis Pneumonia, no hypotension or lactic acidosis.
Recurrent N/V
Recurrent coffee-ground emesis.
Hemodynamically stable - clinically euvolemic.
Possible acute gastritis, peptic ulcer disease, severe constipation
Chr constipation due to chr narcotics depedence pain syndrome
Not on ASA or Plavix
Denied abdominal pain
Reports normal bowel movement 3 days ago
Morbidly obese
Recent admission to [facility] ( 01/22- 01/27/24) with similar acute problem. Refused to go back to [facility]
trend H&H, transfuse goal Hgb 8 due to concern bleeding. initial Hgb 12.7 downtrended, since improved, transfusion not necessary at this time
coffee ground emesis since resolved, EGD appreciated as below, home Eliquis held on admission since resumed following discussion/clearance with GI
PPI
IV Reglan PRN, home prn zofran switched to Tigan d/t QT prolongation concerns
GI consult appreciated
-Obstruction Series appreciated constipation no obstruction
-EGD appreciated LA Grade D reflux esophagitis with no bleeding.
- A sleeve gastrectomy was found, characterized by
healthy appearing mucosa.
- Normal examined duodenum.
- No specimens collected
-Regular diet and home oral meds resumed
-2 months PPI BID then daily as per GI
Sepsis Aspiration PNA (Leukocytosis, Tachycardia, Fever) since resolved
Acute Hypoxic respiratory failure requiring 4L to maintain saturations
-prn Tylenol
-blood cultures NGTD
-weaned off oxygen supplementation, stable respiratory status on room air
-empiric zosyn de-escalated to unasyn, converted to oral abx Augmentin,completed total 5 days abx 02/03
Chronic Pain Syndrome Narcotic dependent
home long acting morphine scheduled oxycodone converted to fentanyl patch and prn dilaudid while strict NPO
converted back to home oral regimen with restart regular diet
Home scheduled Ativan converted to IV while strict NPO converted back to oral with instructions to hold if sedated
QT prolongation
limit QT prolonging agents as possible
cont manufacturing mechanic
QT prolongation since resolved
Tigan converted back to zofran as needed.
Hx DVT/PE s/p IVC filter chronic Eliquis
-Eliquis resumed, cont
-Venous duplex appreciated chronic DVT LLE, no DVT noted RLE peroneal veins not well seen
Hypokalemia
monitor and replete as necessary
reported hx DM- low dose sliding scale for now. A1c appreciated 5.3 non-diabetic
Sugars otherwise well controlled without need for insulin correction
ok to discontinue routine FS monitoring
HX cerebellar stroke with left hemiparesis, chronically bedbound for the past 7 years
Previous abdominal surgery (Prior history of gastric bypass 2004)
Psychiatric illness
DVT Px: Eliquis
Full code
Case Mgmt Consult appreciated, patient prefers to change facilities From [facility] to [place], referral made, pending determination
Medically stable for discharge pending placement
I spent a total of 52 minutes with the patient or on the floor. More than 50% of this time involved counseling and coordination of care.
Anticipated Discharge: Within 24 hours
Subjective/Interval History
-
Date of Service: February 05, 2024
no acute distress. comfortable. No new issues
Objective Data
-
Vital Signs:
Vital Signs
Temp Pulse Resp BP Pulse Ox
98.3 F 79 18 133/71 96
02/04/24 23:00 02/04/24 23:00 02/04/24 23:00 02/04/24 23:00 02/04/24 23:00
I&O
02/03/24 02/04/24 02/05/24
06:59 06:59 06:59
Intake Total 1979 960 / 960
Output Total 1000 / 1000
Balance 1979 -1000 / -1000 960 / 960
[2024-02-05 08:08] VITALS: BP 108/70
[2024-02-05] MEDS: SENOKOT-S 1 TABLET PO ×2 (08:52→20:13)
[2024-02-05] MEDS: CLARITIN 10 MG PO (08:52)
[2024-02-05] MEDS: ELIQUIS 5 MG PO ×2 (08:52→20:13)
[2024-02-05] MEDS: ROXICODONE 20 MG PO ×4 (08:52→22:00)
[2024-02-05] MEDS: DESENEX/MITRAZOL/ZEASORB 1 APPLIC TOPICAL ×2 (08:53→20:16)
[2024-02-05] MEDS: LIORESAL 10 MG PO ×3 (08:53→22:00)
[2024-02-05] MEDS: MS CONTIN (EXTENDED RELEASE) 60 MG PO ×2 (08:53→20:13)
[2024-02-05] MEDS: REFRESH EYE DROPS (PF) 1 DROPS OPHTH ×5 (08:54→23:13)
[2024-02-05] MEDS: PROTONIX 40 MG PO ×2 (08:54→20:13)
[2024-02-05] MEDS: VITAMIN D3 (cholecalciferol) 50 MCG PO (08:54)
[2024-02-05] MEDS: ZADITOR OPHTH ×2 (08:55→20:18)
[2024-02-05] MEDS: LYRICA 200 MG PO ×3 (08:55→22:02)
[2024-02-05] MEDS: MIRALAX PO ×2 (08:55→20:17)
[2024-02-05] MEDS: FIORICET 1 TAB PO ×3 (08:58→22:02)
[2024-02-05 11:06] VITALS: BP 92/52
[2024-02-05 15:13] VITALS: BP 97/62
[2024-02-05] MEDS: ELAVIL 25 MG PO (22:00)
[2024-02-05] MEDS: LIPITOR 40 MG PO (22:00)
[2024-02-05] MEDS: MELATONIN 3 MG PO (22:00)
[2024-02-05 23:04] VITALS: BP 98/76
[2024-02-06] MEDS: REFRESH EYE DROPS (PF) OPHTH (03:51)
[2024-02-06] MEDS: ATIVAN 1 MG PO ×2 (06:01→13:26)
[2024-02-06 07:38] VITALS: BP 105/61
[2024-02-06] MEDS: LYRICA 200 MG PO (08:23)
[2024-02-06] MEDS: MIRALAX PO (08:23)
[2024-02-06] MEDS: CLARITIN 10 MG PO (08:23)
[2024-02-06] MEDS: LIORESAL 10 MG PO (08:24)
[2024-02-06] MEDS: ROXICODONE 20 MG PO ×2 (08:24→13:25)
[2024-02-06] MEDS: VITAMIN D3 (cholecalciferol) 50 MCG PO (08:24)
[2024-02-06] MEDS: SENOKOT-S 1 TABLET PO (08:24)
[2024-02-06] MEDS: MS CONTIN (EXTENDED RELEASE) 60 MG PO (08:24)
[2024-02-06] MEDS: ELIQUIS 5 MG PO (08:24)
[2024-02-06] MEDS: PROTONIX 40 MG PO (08:24)
[2024-02-06] MEDS: REFRESH EYE DROPS (PF) 1 DROPS OPHTH ×2 (08:25→13:26)
[2024-02-06] MEDS: ZADITOR OPHTH (08:26)
[2024-02-06] MEDS: FIORICET 1 TAB PO (09:53)
--- NOTE | 2024-02-06 10:52 | W.PN.HOSP.TC ---
Today's Communication/Plan
-
await placement
cont ppi
pain control
Assessment / Plan
Assessment / Plan
Physical Exam
General: No acute distress, Morbidly Obese
HEENT: NormoCephalic, Anicteric, PERRLA
Respiratory: Clear to auscultation
Cardiac: S1/S2, Regular Rhythm and Tachycardia
GI: Soft, Non Tender, Hyperactive Bowel Sounds.
Musculoskeletal: left sided hemiplegia baseline per patient
Skin: Warm
Neuro: Alert oriented x 3
Psych: Calm
48F CVA residual left-sided hemiplegia, chronic bed bound, HX DVT/PE s/p IVCF , chr Eliquis , chr narcotic dependent pain syndrome, T2 DM, peptic ulcer disease with HX perforated gastric ulcer and GERD p/w coffee ground emesis nausea vomiting
recently admitted at [place] for the same (01/22 - 01/27/24) reportedly diagnosed with severe constipation, no EGD done. Patient later developed fever with associate tachycardia leukocytosis and Hypoxic Respiratory Failure requiring 4L non-labored
respiration- concerning for Aspiration Sepsis Pneumonia, no hypotension or lactic acidosis.
Recurrent N/V
Recurrent coffee-ground emesis.
Hemodynamically stable - clinically euvolemic.
Possible acute gastritis, peptic ulcer disease, severe constipation
Chr constipation due to chr narcotics depedence pain syndrome
Not on ASA or Plavix
Denied abdominal pain
Reports normal bowel movement 3 days ago
Morbidly obese
Recent admission to [facility] ( 01/22- 01/27/24) with similar acute problem. Refused to go back to [facility]
trend H&H, transfuse goal Hgb 8 due to concern bleeding. initial Hgb 12.7 downtrended, since improved, transfusion not necessary at this time
coffee ground emesis since resolved, EGD appreciated as below, home Eliquis held on admission since resumed following discussion/clearance with GI
PPI
IV Reglan PRN, home prn zofran switched to Tigan d/t QT prolongation concerns
GI consult appreciated
-Obstruction Series appreciated constipation no obstruction
-EGD appreciated LA Grade D reflux esophagitis with no bleeding.
- A sleeve gastrectomy was found, characterized by
healthy appearing mucosa.
- Normal examined duodenum.
- No specimens collected
-Regular diet and home oral meds resumed
-2 months PPI BID then daily as per GI
Sepsis Aspiration PNA (Leukocytosis, Tachycardia, Fever) since resolved
Acute Hypoxic respiratory failure requiring 4L to maintain saturations
-prn Tylenol
-blood cultures NGTD
-weaned off oxygen supplementation, stable respiratory status on room air
-empiric zosyn de-escalated to unasyn, converted to oral abx Augmentin,completed total 5 days abx 02/03
Chronic Pain Syndrome Narcotic dependent
home long acting morphine scheduled oxycodone converted to fentanyl patch and prn dilaudid while strict NPO
converted back to home oral regimen with restart regular diet
Home scheduled Ativan converted to IV while strict NPO converted back to oral with instructions to hold if sedated
QT prolongation
limit QT prolonging agents as possible
cont playground monitor
QT prolongation since resolved
Tigan converted back to zofran as needed.
Hx DVT/PE s/p IVC filter chronic Eliquis
-Eliquis resumed, cont
-Venous duplex appreciated chronic DVT LLE, no DVT noted RLE peroneal veins not well seen
Hypokalemia
monitor and replete as necessary
reported hx DM- low dose sliding scale for now. A1c appreciated 5.3 non-diabetic
Sugars otherwise well controlled without need for insulin correction
ok to discontinue routine FS monitoring
HX cerebellar stroke with left hemiparesis, chronically bedbound for the past 7 years
Previous abdominal surgery (Prior history of gastric bypass 2004)
Psychiatric illness
DVT Px: Eliquis
Full code
Case Mgmt Consult appreciated, patient prefers to change facilities From [facility] to [place], referral made, pending determination
Medically stable for discharge pending placement
Anticipated Discharge: Today
Subjective/Interval History
-
Date of Service: February 06, 2024
tolerating diet
no abd pain or nausea
Objective Data
-
Vital Signs:
Vital Signs
Temp Pulse Resp BP Pulse Ox
98.2 F 73 17 105/61 100
02/06/24 07:38 02/06/24 07:38 02/06/24 07:38 02/06/24 07:38 02/06/24 07:38
I&O
02/05/24 02/06/24 02/07/24
06:59 06:59 06:59
Intake Total 960 / 960 1140 / 1140
Output Total 800 / 800
Balance 960 / 960 340 / 340
Data Reviewed
-
Total Time Spent with Patient (in minutes): 55
--- NOTE | 2024-02-06 11:12 | CM ---
Addendum entered by STACI Han 02/06/24 11:36:
Will review IMM with patient. She stated that she did not feel well, and requested CM to come back.
Original Note:
Spoke with patient to update that there is no bed availability at [facility]. She was upset and therefore she was advised to discuss transfer to a new [facility] with pediatric social worker at facility ([facility]).
Placed a call to [facility] and spoke with Vania in admissions who confirmed that they can take patient back.
# For report [phone] 2nd
Completed medical necessity and transfer sheet for [facility] community reinvestment act officer to arrange for transfer.
Plan: Case management will continue to follow and assist with discharge planning. Back to [facility]. Patient is an AL Bed hold.
--- NOTE | 2024-02-06 11:18 | W.DCSUMMARY ---
Discharge Summary
Discharge Data
Date of Admission: 01/30/24
Date of Discharge: 02/06/24
-
Pending Results: No
Hospital Course
48F CVA residual left-sided hemiplegia, chronic bed bound, HX DVT/PE s/p IVCF , chr Eliquis , chr narcotic dependent pain syndrome, T2 DM, peptic ulcer disease with HX perforated gastric ulcer and GERD p/w coffee ground emesis nausea vomiting. EGD
was done which showed LA Grade D reflux esophagitis with no bleeding. A sleeve gastrectomy was found, characterized by healthy appearing mucosa. Normal examined duodenum. No specimens collected. Patient also had sepsis secondary to aspiration
pneumonia and acute hypoxic respiratory failure. Patient completed course of antibiotics in the hospital. She was weaned off oxygen to room air. Patient IV pain medication with transition to home regimen. QTc improved. Patient had baseline
bedbound. GI recommended patient take PPI twice daily for 2 months and then daily. Patient will be transition back to half-way facility.
Discharge Plan
-
Patient Disposition: Intermediate/SNF
Discharge Diagnosis/Procedures: Opiate Induced Constipation, Esophagitis, Possible GI bleed since resolved, GERD, Sepsis Aspiration Pneumonia resolved, Chronic Pain Syndrome Narcotic Dependent, History Stroke Left sided hemiparesis chronic bedbound,
Morbid Obesity, History Sleeve Gastrectomy, Gastric Bypass, history DVT/PE on Eliquis
Condition: Fair
Diet: Regular
Activity: With assistance
Driving Restrictions: No driving
Bathing Restrictions: None
Blood Work: Please repeat CBC and BMP with primary care provider in 1 week of discharge.
Other Services: PT and OT
Activity Restrictions/Additional Instructions:
Continue Protonix 40 mg twice daily for 2 months then switch to daily
Referrals:
Hiren Mckinney MD [Active] - in one to two months
Dalia Fox DO [Family Provider] - in one week
Prescriptions:
Continued
polyethylene glycol 3350 [Miralax] 17 gram Powder In Packet
17 g PO BID Qty: 0
atorvastatin [Lipitor] 40 mg Tablet
40 mg PO HS
melatonin 3 mg Tablet
3 mg PO HS
amitriptyline 25 mg Tablet
25 mg PO HS
baclofen 10 mg Tablet
10 mg PO TID
lorazepam 1 mg Tablet
1 mg PO Q6H
loratadine 10 mg Tablet
10 mg PO DAILY
pregabalin [Lyrica] 200 mg Capsule
200 mg PO TID
Rx Instructions:
for muscle spasm
Eliquis 5 mg Tablet
5 mg PO BID
hpbmqevhkn-hxvhmcgudqkwy-aepb 50-325-40 mg Capsule
1 cap PO Q6HPRN PRN (Reason: headches)
acetaminophen [Tylenol] 325 mg Tablet
650 mg PO Q4HPRN PRN (Reason: pain )
ketotifen fumarate [Zaditor] 0.025 % (0.035 %) Drops
1 drp BOTH EYES BID
sennosides-docusate sodium 8.6-50 mg Tablet
1 tab-cap PO BID
metoclopramide HCl [Reglan] 5 mg Tablet
5 mg PO Q6HPRN PRN (Reason: nausea)
morphine 60 mg Tablet Extended Release
60 mg PO Q12H
bisacodyl [Dulcolax (bisacodyl)] 10 mg Suppository
10 mg FL DAILYPRN PRN (Reason: constipation)
salicylic acid 2 % Foam
1 ea TOPICAL MOFR@0800
calcium carbonate [Tums] 200 mg calcium (500 mg) Tablet,Chewable
400 mg PO Q6HPRN PRN (Reason: gerd)
metronidazole 0.75 % Cream
1 applic TOPICAL DAILY
Fleet Enema 19-7 gram/118 mL Enema
118 ml FL Q8HPRN PRN (Reason: constipation)
nystatin 100,000 unit/gram Powder
1 applic TOPICAL Q12H
ondansetron 4 mg Tablet,Disintegrating
4 mg PO Q6HPRN PRN (Reason: nasuea)
oxycodone 20 mg Tablet
20 mg PO QID
cholecalciferol (vitamin D3) [Vitamin D3] 50 mcg (2,000 unit) Tablet
50 mcg PO DAILY
Changed
pantoprazole [Protonix] 40 mg Tablet,Delayed Release (Dr/Ec)
40 mg PO BID 60 Days Qty: 120 0RF
Discharge Orders:
Discharge Patient (As Directed); Ordered 02/06/24
Ordered By: Amol Klein
Discharge Date and Time
Print Language: [id number]
[2024-02-06] MEDS: DESENEX/MITRAZOL/ZEASORB 1 APPLIC TOPICAL (13:26)
[2024-02-06 14:00] VITALS: BP 112/59
== END 2024-02-06 14:15 | DRG 871 ==
LOC: 3 WEST ACU 06:20
PROVIDERS: Internal Medicine; Specialist; ADMITTING PHYSICIAN Internal Medicine; ATTENDING PHYSICIAN Hospitalist; CONSULT PHYSICIAN Internal Medicine Gastroenterology; EMERGENCY PHYSICIAN Emergency Medicine; FAMILY PHYSICIAN Hospitalist
PROC: 0DJ08ZZ Inspection of Upper Intestinal Tract, Via Natural or Artificial Opening Endoscopic (ICD-10-PCS; 2024-02-01)
DX: A41.9 Sepsis, unspecified organism (principal); J69.0 Pneumonitis due to inhalation of food and vomit; J96.01 Acute respiratory failure with hypoxia; K21.01 Gastro-esophageal reflux disease with esophagitis, with bleeding; I69.354 Hemiplegia and hemiparesis following cerebral infarction affecting left non-dominant side; Z68.41 Body mass index [BMI] 40.0-44.9, adult; F11.20 Opioid dependence, uncomplicated; K92.2 Gastrointestinal hemorrhage, unspecified; I87.1 Compression of vein; Z74.01 Bed confinement status; Z86.711 Personal history of pulmonary embolism; Z86.718 Personal history of other venous thrombosis and embolism; E78.00 Pure hypercholesterolemia, unspecified; Z95.828 Presence of other vascular implants and grafts; Q96.9 Turner's syndrome, unspecified; F31.9 Bipolar disorder, unspecified; F41.9 Anxiety disorder, unspecified; Z79.01 Long term (current) use of anticoagulants; E66.01 Morbid (severe) obesity due to excess calories; E87.6 Hypokalemia; G89.4 Chronic pain syndrome; K59.03 Drug induced constipation; T40.605A Adverse effect of unspecified narcotics, initial encounter; Z11.52 Encounter for screening for COVID-19; Z98.84 Bariatric surgery status
CPT/HCPCS: 74022; 80048; 80053; 82962; 83036; 83605; 83690; 83735; 84100; 84703; 85014; 85018; 85025; 85027; 85610; 85730; 86850; 86900; 86901; 87040; 87070; 87502; 87811; 93005; 93970; 96361; 96374; 96375; 99285; 99406

== ENCOUNTER 2024-02-11 17:19 | Inpatient (IN) | payer MEDICARE, OTHER, SELFPAY ==
[2024-02-11] VITALS (9 sets, daily range): BP systolic 122–167; BP diastolic 70–102; BMI 42.4; BMI 41.5
[2024-02-11 13:02] LABS: % Basophils 0.4 % (0-2); % Eosinophils 0.5 % (0-6); % Immature Granulocytes 0.2 % (0-0.5); % Lymphocytes 10.4 % (20.5-51.1); % Monocytes 4.4 % (1.7-9.3); % Neutrophils 84.1 % (42.2-75.2); Absolute Eosinophils 0.1 10^3/uL (0-0.7); Absolute Monocytes 0.4 10^3/uL (0.1-0.6); Absolute Neutrophils 8.2 10^3/uL (1.4-6.5); Hemoglobin 11.2 g/dL (12.0-16.0); Mean Corp Hgb Conc. 32.9 g/dL (33.0-37.0); Mean Corpuscular Hgb 27.9 pg (27.0-31.0); Mean Corpuscular Volume 84.8 fL (81.0-99.0); Nucleated Red Blood Cells % 0 %; Platelet Count 267 10^3/uL (130-400); Red Blood Cell Count 4.01 10^6/uL (4.20-5.40); Red Cell Dist. Width 14.8 % (11.5-14.5); White Blood Cell Count 9.7 10^3/uL (4.8-10.8)
[2024-02-11 13:08] LABS: ALT (SGPT) 13 U/L (0-35); AST (SGOT) 15 U/L (14-36); Albumin 2.8 g/dl (3.5-5.0); Alkaline Phosphatase 88 U/L (38-126); Blood Urea Nitrogen 9 mg/dl (7-17); Calcium 7.7 mg/dl (8.4-10.2); Carbon Dioxide 27 mmol/L (22-30); Chloride 109 mmol/L (98-107); Estimated Creatinine Clearance > 125 ml/min; Glucose 115 mg/dl (70-99); Potassium 3.1 mmol/L (3.5-5.1); Sodium 137 mmol/L (135-145); Total Bilirubin 0.5 mg/dl (0.2-1.3); Total Protein 5.2 g/dl (6.3-8.2); eGFR > 60.00
[2024-02-11 13:12] LABS: INR 1.16; PT 14.6 Sec (11.4-14.6)
[2024-02-11 13:13] LABS: APTT 31.6 Sec (23.4-35.0)
--- NOTE | 2024-02-11 13:25 | ED.GENMED ---
History of Present Illness
General
Chief Complaint: Abdominal Pain
Source: patient and ambulance crew
Exam Limitations: none
Time Seen by Provider: 02/11/24 12:40
Nursing documentation reviewed up to this point in time: agreed with
Travel History
Have you had any contact with someone who has COVID-19?: No
Do you have any symptoms of coronavirus? Fever > 100 degrees, chills, cough, shortness of breath, sore throat, loss of taste or smell, muscle aches, or headache?: No
History of Present Illness
History of Present Illness:
48-year-old female presents emergency department complaining of epigastric abdominal pain, nausea vomiting since last night. Recent admission for esophagitis. She is unable to hold down her medications.
Past History
Past History
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
gastric ulcer)
ED Past Surgical History: Other (gastric bypass, back sx)
Social History
Tobacco: Non-smoker
Alcohol: None
Personal: Single
Living: skilled nursing
Employment: Disabled
Family History
Family History: Other (Noncontributory)
Review of Systems
Review of Systems
Allergies reviewed?: Yes
All Other Systems: Not applicable
Constitutional: Reports no symptoms
EENT: Reports no symptoms
Respiratory: Reports no symptoms
Cardiac: Reports no symptoms
ABD/GI: Reports abdominal pain and vomiting
: Reports no symptoms
Musculoskeletal: Reports no symptoms
Skin: Reports no symptoms
Neurological: Reports weakness (Chronic hemiplegia)
Endocrine: Reports no symptoms
Hematologic/Lymphatic: Reports no symptoms
Psychiatric: Reports no symptoms
Phy Exam
Physical Exam
Physical Exam:
Physical Exam
General: Chronic ill appearance
Neck: supple. no meningeal signs. normal posterior pharynx
Heart: s1/s2 regular rate and rhythm, no murmur. equal radial
pulses.
HEENT: Pupils equal round reactive to light, EOMI
Lungs: no acute respiratory distress. clear bilaterally
Abdomen: normal bowel sounds. not tender. no CVAT, obese
Neuro: alert and oriented. Left-sided hemiparesis
Skin: no rash
Psychiatric: well kept. interactive and cooperative
Extremities: no edema. no calf tenderness. negative homans. good distal pulses
Course
Orders/Labs/Results
Orders:
Orders
02/11/24 12:48
Type+Screen Urgent
Complete Blood Count/With Diff Urgent
Comprehensive Metabolic Panel Urgent
Magnesium Urgent
Comment: ADD ON
PTT Urgent
Prothrombin Time Urgent
02/11/24 13:24
Obstruct Series W/PA Chest [CR Obstruct Series W/pa Chest] Urgent
Comment:
Reason For Exam: vomiting, abdominal pain
02/11/24 13:28
0.9% Sodium Chloride 1000 ml [Nss] 1,000 ml IV BOLUS
Morphine Sulfate 4 mg IV NOW STA
Ondansetron Injectable [Zofran] 4 mg IV NOW STA
02/11/24 13:48
Add On- LAB Urgent
Tests Added?: magnesium
02/11/24 13:58
Potassium Chloride [KCl] 40 meq 0.9% Sodium Chloride 250 ml [Nss] 250 ml IV NOW
02/11/24 16:27
HYDROmorphone [Dilaudid] 1 mg IV NOW STA
HYDROmorphone [Dilaudid] 1 mg IV Q3HPRN PRN
Magnesium Sulfate 2 Gram/50 ml [Magnesium Sulfate] 2 gram in 50 ml IV NOW
Pantoprazole [Protonix IV] 80 mg IV NOW STA
Prochlorperazine [Compazine] 10 mg IV NOW STA
02/11/24 16:30
Pantoprazole 80 mg/100 ml Nss [Protonix] 80 mg in 100 ml IV Q10H
02/11/24 16:36
0.9% Sodium Chloride [Nss (Preservative Free)] 20 ml IV NOW STA
02/11/24 20:00
Pantoprazole [Protonix IV] 40 mg IV BID
Abnormal Lab Results
02/11/24
12:48
RBC 4.01 L 10^6/uL
(4.20-5.40)
Hgb 11.2 L g/dL
(12.0-16.0)
Hct 34.0 L %
(37.0-47.0)
MCHC 32.9 L g/dL
(33.0-37.0)
RDW 14.8 H %
(11.5-14.5)
Absolute Neuts (auto) 8.2 H 10^3/uL
(1.4-6.5)
Absolute Lymphs (auto) 1.0 L 10^3/uL
(1.2-3.4)
Neutrophils % 84.1 H %
(42.2-75.2)
Lymphocytes % 10.4 L %
(20.5-51.1)
Potassium 3.1 L mmol/L
(3.5-5.1)
Chloride 109 H mmol/L
(98-107)
Creatinine 0.4 L mg/dL
(0.6-1.0)
Glucose 115 H mg/dl
(70-99)
Calcium 7.7 L mg/dl
(8.4-10.2)
Magnesium 1.2 L mg/dl
(1.6-2.3)
Total Protein 5.2 L g/dl
(6.3-8.2)
Albumin 2.8 L g/dl
(3.5-5.0)
02/11/24 12:48
02/11/24 12:48
Vital Signs
Initial and Last Documented VS:
Initial Vital Signs
Pulse Resp BP
84 21 136/74
02/11/24 11:18 02/11/24 11:18 02/11/24 11:18
Last Documented Vital Signs
Temp Pulse Resp BP Pulse Ox
99.9 F 86 12 155/75 94
02/11/24 11:25 02/11/24 16:15 02/11/24 16:15 02/11/24 16:00 02/11/24 16:15
MDM/Problems Addressed
Differential Diagnosis Includes:
Bowel obstruction
MDM/Problems Addressed:
48-year-old female intractable vomiting, hypokalemia. Admit to hospitalist.
Chronic conditions affecting care: Neurological disorder
Acute Exacerbation and/or Progression of Chronic Illness: Neurological disorder
*Radiology
Radiology exam reviewed: radiology read reviewed (Obstruction series shows constipation, possible mild right upper lobe pneumonia, but likely artifact)
*Pulse Oximetry
Patient hypoxic: no
*EKG
Interpreted by ED Provider?: NA
*Hot Kettle Tender Interpretation
Rate: Hot Kettle Tender- N/A
*Critical Care Note
Total Time (30-74mins, 75-104mins- exclusive of procedures): Not Applicable
Data Reviewed
Review of Other/Old Records Reveals: Records
Patient Management
Social determinants of health affecting care: Living situation
Discussion with other providers: Hospitalist
Escalation/DeEscalation of care consider admission/obs:
Admit indicated
ED Attending Note
-
Portions of this chart may have been created with voice recognition software.� Occasional wrong word or��sound alike� substitutions may have occurred due to the inherent limitations of voice recognition software.
Discharge Plan
Departure
Patient Disposition: Admit
Date of Disposition: 02/11/24
Time of Disposition: 14:57
Presentation/result/management discussed w/ accepting MD/DO: Hospitalist
Patient with high blood pressure during this ER visit?: Yes
Condition: Fair
Discharge Problem:
Hypokalemia, Nausea and vomiting, Hemiplegia and hemiparesis following cerebral infarction affecting left non-dominant side, Hypomagnesemia
Prescriptions:
No Action
polyethylene glycol 3350 [Miralax] 17 gram Powder In Packet
17 g PO BID Qty: 0
atorvastatin [Lipitor] 40 mg Tablet
40 mg PO HS
melatonin 3 mg Tablet
3 mg PO HS
amitriptyline 25 mg Tablet
25 mg PO HS
baclofen 10 mg Tablet
10 mg PO TID
lorazepam 1 mg Tablet
1 mg PO Q6H
loratadine 10 mg Tablet
10 mg PO DAILY
pregabalin [Lyrica] 200 mg Capsule
200 mg PO TID
Rx Instructions:
for muscle spasm
Eliquis 5 mg Tablet
5 mg PO BID
nprcsnlfkz-htlpjusiwnfeg-fczx 50-325-40 mg Capsule
1 cap PO Q6HPRN PRN (Reason: headches)
acetaminophen [Tylenol] 325 mg Tablet
650 mg PO Q4HPRN PRN (Reason: pain )
ketotifen fumarate [Zaditor] 0.025 % (0.035 %) Drops
1 drp BOTH EYES BID
sennosides-docusate sodium 8.6-50 mg Tablet
1 tab-cap PO BID
metoclopramide HCl [Reglan] 5 mg Tablet
5 mg PO Q6HPRN PRN (Reason: nausea)
morphine 60 mg Tablet Extended Release
60 mg PO Q12H
bisacodyl [Dulcolax (bisacodyl)] 10 mg Suppository
10 mg GA DAILYPRN PRN (Reason: constipation)
salicylic acid 2 % Foam
1 ea TOPICAL MOFR@0800
metronidazole 0.75 % Cream
1 applic TOPICAL DAILY
Fleet Enema 19-7 gram/118 mL Enema
118 ml GA Q8HPRN PRN (Reason: constipation)
nystatin 100,000 unit/gram Powder
1 applic TOPICAL Q12H
ondansetron 4 mg Tablet,Disintegrating
4 mg PO Q6HPRN PRN (Reason: nasuea)
oxycodone 20 mg Tablet
20 mg PO QID
cholecalciferol (vitamin D3) [Vitamin D3] 50 mcg (2,000 unit) Tablet
50 mcg PO DAILY
pantoprazole [Protonix] 40 mg Tablet,Delayed Release (Dr/Ec)
40 mg PO BID 60 Days Qty: 120 0RF
Referrals:
Dalia Fox DO [Family Provider] -
Interventions
Interventions:
*Risk Screen - Suicide Last Done: 02/11/24 11:21
*General Assessment Last Done: 02/11/24 11:30
*Neglect/Abuse Screening Last Done: 02/11/24 11:21
ED- Fall Risk Assessment Last Done: 02/11/24 11:25
*ED COVID-19 Vaccine History Last Done: 02/11/24 11:22
ML-Cprqbc-Djzzswpzcc Assessment Last Done: 02/11/24 11:32
Discharge Date and Time
Print Language: TAJIK
[2024-02-11] MEDS: NSS 1000 IV (13:57)
[2024-02-11] MEDS: MORPHINE SULFATE 4 MG IV (14:00)
[2024-02-11] MEDS: ZOFRAN 4 MG IV (14:00)
[2024-02-11] MEDS: KCL 270 MEQ IV (14:06)
[2024-02-11 14:12] LABS: Magnesium 1.2 mg/dl (1.6-2.3)
--- NOTE | 2024-02-11 16:29 | HPS.HSE ---
Family Physician
-
Family Physician: Dalia Fox,
Chief Complaint
-
Coffee ground emesis
History of Present Illness
48-year-old female jail resident with a past medical history of cerebellar stroke with residual left-sided hemiparesis, DVT/PE on Eliquis, obesity status post gastric bypass surgery, peptic ulcer disease with remote perforation requiring
surgical repair, spinal cord cancer status post surgery, chronic back pain on chronic opioids, and opioid induced constipation presents with intractable vomiting, found to have coffee-ground emesis. Patient was recently admitted at [place]
[facility] 01/30/24- 02/06/24 for coffee-ground emesis, EGD on 02/01/[address] Mckinney shows grade D reflux esophagitis with no bleeding. She states that after discharge from [facility] 5 days ago, her coffee-ground emesis did improve. However
it returned this morning, and has been quite severe. Patient reports lightheadedness and dizziness. She also has substernal chest pain from the vomiting and esophagitis. She does have some mild epigastric pain as well. She has chronic back pain
from her spinal cord cancer status post surgery. She denies fever. No black or bloody stools.
Medical History
Past Medical History
Past Medical History: Reports Other
Additional Past Medical History:
cerebellar stroke with residual left-sided hemiparesis, DVT/PE on Eliquis, obesity status post gastric bypass surgery, peptic ulcer disease with remote perforation requiring surgical repair, spinal cord cancer status post surgery, chronic back pain
on chronic opioids, opioid induced constipation, anxiety/depression, seu-zmdbput-zpbcaliib type 2 diabetes, migraine headaches, peptic ulcer disease
Past Surgical History: Reports Other
Additional Past Surgical History:
Appendectomy
Cholecystectomy
Gastric bypass
Perforated ulcer repair
Spinal cord surgery
IVC filter placement
Social History
Tobacco: Non-smoker
Alcohol: None
Drug: None
Living: Skilled Nursing
Family History
Family History: Not pertinent
Allergies / Home Medications
Allergies reflects when Allergies were last updated in [facility].
Home Medications with original date entered in [facility]
Allergy/Medication List:
Allergies
Allergy/AdvReac Type Severity Reaction Status Date / Time
barium sulfate Allergy Mild Unknown Verified 02/11/24 11:30
venlafaxine [From Effexor] Allergy Unknown Unknown Verified 02/11/24 11:30
enoxaparin Allergy Unknown Verified 02/11/24 11:30
sulfamethoxazole Allergy Rash Verified 02/11/24 11:29
[From Bactrim]
trimethoprim [From Bactrim] Allergy Rash Verified 02/11/24 11:29
Home Medications Table - record
�Medication �Instructions �Recorded �Confirmed
polyethylene glycol 3350 17 gram 17 g PO BID Constipation ##0 04/16/17 02/11/24
oral powder packet (Miralax)
acetaminophen 325 mg tablet 650 mg PO Q4HPRN PRN pain 01/30/24 02/11/24
(Tylenol)
amitriptyline 25 mg tablet 25 mg PO HS depression/sleep 01/30/24 02/11/24
apixaban 5 mg tablet (Eliquis) 5 mg PO BID Blood Clot 01/30/24 02/11/24
Prevention/hx DVT/PE
atorvastatin 40 mg tablet (Lipitor) 40 mg PO HS High Cholesterol 01/30/24 02/11/24
baclofen 10 mg tablet 10 mg PO TID Muscle Spasms 01/30/24 02/11/24
bisacodyl 10 mg rectal suppository 10 mg CO DAILYPRN PRN constipation 01/30/24 02/11/24
(Dulcolax (bisacodyl))
tsugzypymt-qyqpdwslwlhyg-iowumefv 1 cap PO Q6HPRN PRN headches 01/30/24 02/11/24
50 mg-325 mg-40 mg capsule
cholecalciferol (vitamin D3) 50 50 mcg PO DAILY Supplement 01/30/24 02/11/24
mcg (2,000 unit) tablet (Vitamin
D3)
ketotifen fumarate 0.025 % (0.035 1 drp BOTH EYES BID Eye Condition 01/30/24 02/11/24
%) eye drops (Zaditor)
loratadine 10 mg tablet 10 mg PO DAILY Allergies 01/30/24 02/11/24
lorazepam 1 mg tablet 1 mg PO Q6H anxiety 01/30/24 02/11/24
melatonin 3 mg tablet 3 mg PO HS sleep 01/30/24 02/11/24
metoclopramide HCl 5 mg tablet 5 mg PO Q6HPRN PRN nausea 01/30/24 02/11/24
(Reglan)
metronidazole 0.75 % topical cream 1 applic topical DAILY 01/30/24 02/11/24
nose,eyebrows,cheeks
morphine 60 mg tablet,extended 60 mg PO Q12H pain 01/30/24 02/11/24
release
nystatin 100,000 unit/gram topical 1 applic topical Q12H under both 01/30/24 02/11/24
powder breast, groin
ondansetron 4 mg disintegrating 4 mg PO Q6HPRN PRN nasuea 01/30/24 02/11/24
tablet
oxycodone 20 mg tablet 20 mg PO QID pain 01/30/24 02/11/24
pregabalin 200 mg capsule (Lyrica) 200 mg PO TID pain 01/30/24 02/11/24
salicylic acid 2 % topical foam 1 ea topical MOFR@0800 cheek,upper 01/30/24 02/11/24
back and chest
sennosides 8.6 mg-docusate sodium 1 tab-cap PO BID constipation 01/30/24 02/11/24
50 mg tablet
sodium phosphates 19 gram-7 118 ml CO Q8HPRN PRN constipation 01/30/24 02/11/24
gram/118 mL enema (Fleet Enema)
pantoprazole 40 mg tablet,delayed 40 mg PO BID Gastrointestinal 02/06/24 02/11/24
release (Protonix) Issue 60 days #120 tabs
Review of Systems
-
A 12 point ROS was completed and negative except as noted: Yes
Physical Exam
Vital Signs
Vital Signs
Temp Pulse Resp BP Pulse Ox
99.9 F 86 12 155/75 94
02/11/24 11:25 02/11/24 16:15 02/11/24 16:15 02/11/24 16:00 02/11/24 16:15
Physical Exam
General: No Apparent Distress and Morbidly Obese
HEENT: NormoCephalic, Anicteric, Moist mucous membranes, Atraumatic and Other (Coffee-ground emesis noted around mouth and chest)
Respiratory: Clear
Cardiac: S1/S2 and Regular Rhythm
GI: Soft and Tender (Mildly tender at the epigastrium, no masses guarding or rebound)
Musculoskeletal: No Clubbing and No Cyanosis
Neuro: AO x 3
Psych: Calm
Laboratory Results
-
02/11/24 12:48
02/11/24 12:48
Laboratory Results
PT 14.6 Sec (11.4-14.6) 02/11/24 12:48
INR 1.16 02/11/24 12:48
APTT 31.6 Sec (23.4-35.0) 02/11/24 12:48
Total Bilirubin 0.5 mg/dl (0.2-1.3) 02/11/24 12:48
AST 15 U/L (14-36) 02/11/24 12:48
ALT 13 U/L (0-35) 02/11/24 12:48
Alkaline Phosphatase 88 U/L (38-126) 02/11/24 12:48
Impression/Plan
-
48-year-old female jail resident with a past medical history of cerebellar stroke with residual left-sided hemiparesis, DVT/PE on Eliquis, obesity status post gastric bypass surgery, peptic ulcer disease with remote perforation requiring
surgical repair, spinal cord cancer status post surgery, chronic back pain on chronic opioids, and opioid induced constipation presents with intractable vomiting, found to have coffee-ground emesis. Patient was recently admitted at [place]
[facility] 01/30/24- 02/06/24 for coffee-ground emesis, EGD on 02/01/[address] Mckinney shows grade D reflux esophagitis with no bleeding. She states that after discharge from [facility] 5 days ago, her coffee-ground emesis did improve. However
it returned this morning, and has been quite severe. Patient reports lightheadedness and dizziness. She also has substernal chest pain from the vomiting and esophagitis. She does have some mild epigastric pain as well. She has chronic back pain
from her spinal cord cancer status post surgery. She denies fever. No black or bloody stools.
#Recurrent coffee-ground emesis
#Grade D esophagitis seen on EGD on 02/01/2024
Consult GI, give Protonix 40 mg IV twice daily, carafate 1 gm QID
Okay to have clear liquids per GI, no red liquids
Hemoglobin 11.2 today, was 8.6 five days ago
Hold Eliquis, continue to monitor
#Profound hypomagnesemia
Replete by IV, recheck a.m. labs
#Hypokalemia
Replete by IV, recheck a.m. labs
#Reported history of diabetes
Check hemoglobin A1c
#Chronic pain syndrome
#Chronic back pain
She is on morphine ER 60 mg every 12 hours, oxycodone 20 mg 4 times daily at home, Lyrica 200 mg 3 times a day
Will give IV Dilaudid until she can tolerate p.o.
#History of PE/DVT
Hold Eliquis for now
Resume when okay with GI
#Opioid-induced constipation
Continue MiraLAX twice a day, sennosides twice a day
#History of cerebellar stroke with left-sided hemiparesis
Patient has been bedbound for the last 7 years
She resides at [facility]
#Anxiety/depression
Continue Ativan 1 mg every 6 hours, amitriptyline
DVT prophylaxis�SCDs
Full code
Total time spent to see the patient on the floor, examine the patient, review data and lab results, discuss treatment plan with patient, nursing staff around 75 minutes.
[2024-02-11] MEDS: COMPAZINE 10 MG IV (16:59)
[2024-02-11] MEDS: DILAUDID 1 MG IV (16:59)
[2024-02-11] MEDS: NSS (PRESERVATIVE FREE) 20 ML IV (17:00)
[2024-02-11] MEDS: PROTONIX IV 80 MG IV (17:00)
[2024-02-11] MEDS: MAGNESIUM SULFATE 50 IV (17:07)
[2024-02-11] MEDS: KCL 1024 GRAMS IV (18:23)
[2024-02-11] MEDS: KCL 1024 MEQ IV (18:23)
[2024-02-11 18:33] LABS: Glucose - Point of Care 114 mg/dl (70-99)
[2024-02-11] MEDS: ATIVAN PO (19:36)
[2024-02-11] MEDS: DESENEX/MITRAZOL/ZEASORB 1 APPLIC TOPICAL (21:00)
[2024-02-11] MEDS: MIRALAX 17 GRAMS PO (21:01)
[2024-02-11] MEDS: ELAVIL 25 MG PO (21:01)
[2024-02-11] MEDS: LIORESAL 10 MG PO (21:01)
[2024-02-11] MEDS: ROXICODONE 20 MG PO (21:04)
[2024-02-11] MEDS: MELATONIN 3 MG PO (21:05)
[2024-02-11] MEDS: LIPITOR 40 MG PO (21:05)
[2024-02-11] MEDS: CARAFATE 1 GRAM PO (21:05)
[2024-02-11] MEDS: LYRICA 200 MG PO (21:05)
[2024-02-11] MEDS: SENOKOT-S 1 TABLET PO (21:06)
[2024-02-11] MEDS: MS CONTIN (EXTENDED RELEASE) PO (21:43)
[2024-02-11] MEDS: ZADITOR OPHTH (21:44)
[2024-02-12] MEDS: ATIVAN PO ×2 (00:51→06:22)
[2024-02-12 03:15] VITALS: BP 125/92
--- NOTE | 2024-02-12 07:48 | W.PN.HOSP.TC ---
Today's Communication/Plan
-
see bold
Assessment / Plan
Assessment / Plan
48-year-old female long-term resident with a past medical history of cerebellar stroke with residual left-sided hemiparesis, DVT/PE on Eliquis, obesity status post gastric bypass surgery, peptic ulcer disease with remote perforation requiring
surgical repair, spinal cord cancer status post surgery, chronic back pain on chronic opioids, and opioid induced constipation presents with intractable vomiting, found to have coffee-ground emesis. Patient was recently admitted at [facility] 01/30/24- 02/06/24 for coffee-ground emesis, EGD on 02/01/[address] Mckinney shows grade D reflux esophagitis with no bleeding. She states that after discharge from [facility] 5 days ago, her coffee-ground emesis did improve. However
it returned this morning, and has been quite severe. Patient reports lightheadedness and dizziness. She also has substernal chest pain from the vomiting and esophagitis. She does have some mild epigastric pain as well. She has chronic back pain
from her spinal cord cancer status post surgery. She denies fever. No black or bloody stools.
#Recurrent coffee-ground emesis
#Grade D esophagitis seen on EGD on 02/01/2024
GI consulted, give Protonix 40 mg IV twice daily, carafate 1 gm ACHS
Okay to have clear liquids per GI, no red liquids
Hemoglobin 10.1 today, was 11.2, was 8.6 five days ago
Hold Eliquis, continue to monitor
Resume eliquis when okay with GI
#Subacute blood loss anemia versus dilution
Hemoglobin 10.1 today, was 11.2, was 8.6 five days ago
Hold Eliquis, continue to monitor
#Profound hypomagnesemia
Repleted and resolved
#Hypokalemia
Repleted and resolved
#Reported history of diabetes
Check hemoglobin A1c
#Chronic pain syndrome
#Chronic back pain
She is on morphine ER 60 mg every 12 hours, oxycodone 20 mg 4 times daily at home, Lyrica 200 mg 3 times a day
IV Dilaudid prn in case she vomits
#History of PE/DVT
Hold Eliquis for now
Resume when okay with GI
#Opioid-induced constipation
Continue MiraLAX twice a day, sennosides twice a day
#History of cerebellar stroke with left-sided hemiparesis
Patient has been bedbound for the last 7 years
She resides at [facility]
#Anxiety/depression
Continue Ativan 1 mg every 6 hours, amitriptyline
DVT prophylaxis�SCDs
Full code
Total time spent to see the patient on the floor, examine the patient, review data and lab results, discuss treatment plan with patient, nursing staff around 50 minutes.
Physical Exam
General: Morbidly obese, no acute distress, chronically debilitated
HEENT: Normocephalic, Atraumatic, EOMI, MMM
Respiratory: Clear to Auscultation bilaterally
Cardiac: Normal S1/S2, Regular Rate and Rhythm
GI: Soft, Nontender, Nondistended, Normal Bowel Sounds
Extremities: No Clubbing, Cyanosis, or Edema
Neuro: Left-sided hemiparesis
Psych: Calm, Cooperative
Anticipated Discharge: 24 - 48 hours
Subjective/Interval History
-
Date of Service: February 12, 2024
Hematemesis resolved. Patient is feeling better. No fever, no vomiting. No black or bloody stools. No chest pain, no shortness of breath.
Objective Data
-
Vital Signs:
Vital Signs
Temp Pulse Resp BP Pulse Ox
99.2 F 89 18 125/92 93
02/12/24 03:15 02/12/24 03:15 02/12/24 03:15 02/12/24 03:15 02/12/24 03:15
I&O
02/11/24 02/12/24 02/13/24
06:59 06:59 06:59
Intake Total 1000 / 1000
Output Total 500 / 500
Balance 500 / 500
[2024-02-12 07:50] VITALS: BP 138/81
[2024-02-12] MEDS: LIORESAL 10 MG PO ×3 (08:05→22:22)
[2024-02-12] MEDS: ROXICODONE 20 MG PO ×4 (08:05→22:21)
[2024-02-12] MEDS: PROTONIX IV 40 MG IV ×2 (08:05→20:30)
[2024-02-12] MEDS: NSS (PRESERVATIVE FREE) 10 ML IV ×2 (08:05→20:30)
[2024-02-12] MEDS: VITAMIN D3 (cholecalciferol) 50 MCG PO (08:05)
[2024-02-12] MEDS: MS CONTIN (EXTENDED RELEASE) 60 MG PO ×2 (08:05→20:30)
[2024-02-12] MEDS: CLARITIN 10 MG PO (08:05)
[2024-02-12] MEDS: SENOKOT-S 1 TABLET PO ×2 (08:05→20:31)
[2024-02-12] MEDS: LYRICA 200 MG PO ×3 (08:05→22:20)
[2024-02-12] MEDS: DESENEX/MITRAZOL/ZEASORB 1 APPLIC TOPICAL ×2 (08:06→22:23)
[2024-02-12] MEDS: MIRALAX 17 GRAMS PO ×2 (08:06→20:21)
[2024-02-12] MEDS: ZADITOR OPHTH ×2 (08:07→20:32)
[2024-02-12] MEDS: CARAFATE 1 GRAM PO ×4 (08:09→22:22)
[2024-02-12 08:57] LABS: Hematocrit 31.3 % (37.0-47.0); Hemoglobin 10.1 g/dL (12.0-16.0); Mean Corp Hgb Conc. 32.3 g/dL (33.0-37.0); Mean Corpuscular Hgb 28.1 pg (27.0-31.0); Mean Corpuscular Volume 87.2 fL (81.0-99.0); Mean Platelet Volume 10.1 fL (7.4-10.4); Platelet Count 255 10^3/uL (130-400); Red Blood Cell Count 3.59 10^6/uL (4.20-5.40); Red Cell Dist. Width 15.3 % (11.5-14.5); White Blood Cell Count 6.9 10^3/uL (4.8-10.8)
[2024-02-12 09:15] LABS: Blood Urea Nitrogen 9 mg/dl (7-17); Calcium 7.9 mg/dl (8.4-10.2); Carbon Dioxide 22 mmol/L (22-30); Chloride 110 mmol/L (98-107); Estimated Creatinine Clearance > 125 ml/min; Glucose 126 mg/dl (70-99); Magnesium 2.1 mg/dl (1.6-2.3); Potassium 3.9 mmol/L (3.5-5.1); Sodium 136 mmol/L (135-145); eGFR > 60.00
--- NOTE | 2024-02-12 11:44 | PTCARENOTE ---
pt given all medications this AM, was talking with nurse and states she slept all night. pt did not receive overnight ativan and was very drowsy when she came up from the ED per report. pt has a KAELA midline that she received IV protonix in this AM.
[2024-02-12 11:50] VITALS: BP 103/67
[2024-02-12] MEDS: ATIVAN 1 MG PO ×2 (12:26→18:04)
--- NOTE | 2024-02-12 13:09 | CM ---
Hx CVA residual left-sided hemiplegia. Recently discharged from . . Readmitted with coffee ground emesis. Patient resides at [facility] for past year. Very unhappy there. Wants to go to [facility]. Previous CM had called admissions and
they were unable to accept patient. Patient asked this CM to try again. CM called and admissions is not in today. Left message. Encouraged patient to have her parents or herself reach out to [facility] pack worker to assist with finding
different placement for her. Patient said she will not ask her parents and she also has not attempted to seek different placement through [facility] psychotherapist social worker. Alert and oriented. Requires assist of 2. OOB to chair with assist or katherine.
Discharge Plan of Care: Return to [facility]. Awaiting return call from [facility] ([phone]).
[2024-02-12 13:58] LABS: Glycohemoglobin (HgbA1c) 5.1 % (4.0-5.6)
--- NOTE | 2024-02-12 15:08 | CON.GI ---
Consultation
-
Date/Time Consultation Requested: 02/11/2024
Date/Time Consultation Performed: 02/12/2024
Requesting Provider: Dr. Bustillos
Performing Provider: Dr. Robles
Reason for Consultation: Abdominal pain, nausea and vomiting of coffee-ground material
Medical History
Chief Complaint / HPI
Chief Complaint: Abdominal pain, vomiting of coffee-ground material
History of Present Illness:
Nargis was seen in the hospital for mild abdominal pain and coffee-ground emesis. She was recently in the hospital 01/30/2024 with similar complaints, had an upper endoscopy 02/01/2024 that showed severe LA grade D esophagitis, sleeve gastrectomy
with normal-appearing stomach lining and normal duodenum, discharged 02/06/2024 with PPI twice daily and now coming back with similar complaints. She reports that she has been compliant with the PPI. Yesterday morning, when she woke up, she had
some coffee-ground material in the mouth and was almost choking. Cannot recall what she had for dinner the night prior. Discharge labs 02/04/2024 shows hemoglobin of 8.6, on admission the stomach was 11.2 and today 10.1. BUN has been normal.
Tolerating clear liquid diet and no bowel movement since admission.
She lives in [facility] and does not eat before bed and usually orders out. She has been taking MiraLAX daily since October, reports she has loose stools almost on a regular basis. Prior to that she had significant constipation but
she did not have a bowel movement for a few weeks in spite of enemas.
She is a 48-year-old female with a past medical history significant for CVA with left hemiparesis, morbid obesity, bipolar disorder, anxiety, HLD, DVT/PE on Eliquis, history of peptic ulcer disease with perforation, GERD, gastric bypass around 1999
01/2005-reports revision after, history of migraines, DM2, chronic narcotics secondary to chronic pain syndrome, ambulatory dysfunction. Prior to being admitted to [place] 01/30/2024, she was admitted to [facility] 1 week prior for
abdominal pain, nausea, vomiting, and coffee-ground emesis. Imaging at that time reportedly suggested constipation in which she was treated with a bowel regimen. She was also placed on PPI twice daily. She was transferred back to her nursing
facility and did not undergo endoscopic evaluation at that time. Last admission, she was complaining of pain 'all over' her abdomen. She does not quantify how long she has had this pain but notes it has been several weeks. She notes she does have
a history of perforated gastric ulcer but notes this was years ago. She did have EGD at [place] at that time but we do not have the records. She does not remember when her last EGD was in recent years. She does not follow with a GI doctor
routinely. Reports having colonoscopy several years ago, not in the last 10 years.
She does admit to chronic constipation alternating with diarrhea. She denies any use of NSAIDs. She does not drink alcohol and denies any history of drug use. She admits to remote history of gastric bypass-sleeve gastrectomy as per recent upper
endoscopy report . Upon review of her medication record she does take Eliquis twice daily. She is also on chronic narcotics with oxycodone 20 mg 4 times a day along with daily Protonix. She does also have on file for as needed medications Reglan
5 mg as needed every 6 hours and Zofran 4 mg every 6 hours as needed.
Past Medical History
Past Medical History: Other (CVA (Left hemiparesis), GERD (History of perforated peptic ulcer), IDDM, Psychiatric (Anxiety, bipolar disorder) and Other (History of DVT/PE on Eliquis, chronic pain syndrome on chronic opiates, constipation, history of
migraines, ambulatory dysfunction primarily bedbound (history obtained from the)
Past Surgical History: Other ( Orthopedic (Back surgery) and Other (Gastric bypass))
Social History
Tobacco: Non-Smoker
Alcohol: None
Family History
Family History: Other (Father and uncle with Gunter's esophagus)
Allergies / Home Medications
Allergy/AdvReac Type Severity Reaction Status Date / Time
barium sulfate Allergy Mild Unknown Verified 02/11/24 11:30
venlafaxine [From Effexor] Allergy Unknown Unknown Verified 02/11/24 11:30
enoxaparin Allergy Unknown Verified 02/11/24 11:30
sulfamethoxazole Allergy Rash Verified 02/11/24 11:29
[From Bactrim]
trimethoprim [From Bactrim] Allergy Rash Verified 02/11/24 11:29
�Medication �Instructions �Recorded
polyethylene glycol 3350 17 gram 17 g PO BID Constipation ##0 04/16/17
oral powder packet (Miralax)
acetaminophen 325 mg tablet 650 mg PO Q4HPRN PRN pain 01/30/24
(Tylenol)
amitriptyline 25 mg tablet 25 mg PO HS depression/sleep 01/30/24
apixaban 5 mg tablet (Eliquis) 5 mg PO BID Blood Clot 01/30/24
Prevention/hx DVT/PE
atorvastatin 40 mg tablet (Lipitor) 40 mg PO HS High Cholesterol 01/30/24
baclofen 10 mg tablet 10 mg PO TID Muscle Spasms 01/30/24
bisacodyl 10 mg rectal suppository 10 mg MO DAILYPRN PRN constipation 01/30/24
(Dulcolax (bisacodyl))
riglbthtff-ehyumhbkllfvz-guxlmywm 1 cap PO Q6HPRN PRN headches 01/30/24
50 mg-325 mg-40 mg capsule
cholecalciferol (vitamin D3) 50 50 mcg PO DAILY Supplement 01/30/24
mcg (2,000 unit) tablet (Vitamin
D3)
ketotifen fumarate 0.025 % (0.035 1 drp BOTH EYES BID Eye Condition 01/30/24
%) eye drops (Zaditor)
loratadine 10 mg tablet 10 mg PO DAILY Allergies 01/30/24
lorazepam 1 mg tablet 1 mg PO Q6H anxiety 01/30/24
melatonin 3 mg tablet 3 mg PO HS sleep 01/30/24
metoclopramide HCl 5 mg tablet 5 mg PO Q6HPRN PRN nausea 01/30/24
(Reglan)
metronidazole 0.75 % topical cream 1 applic topical DAILY 01/30/24
nose,eyebrows,cheeks
morphine 60 mg tablet,extended 60 mg PO Q12H pain 01/30/24
release
nystatin 100,000 unit/gram topical 1 applic topical Q12H under both 01/30/24
powder breast, groin
ondansetron 4 mg disintegrating 4 mg PO Q6HPRN PRN nasuea 01/30/24
tablet
oxycodone 20 mg tablet 20 mg PO QID pain 01/30/24
pregabalin 200 mg capsule (Lyrica) 200 mg PO TID pain 01/30/24
salicylic acid 2 % topical foam 1 ea topical MOFR@0800 cheek,upper 01/30/24
back and chest
sennosides 8.6 mg-docusate sodium 1 tab-cap PO BID constipation 01/30/24
50 mg tablet
sodium phosphates 19 gram-7 118 ml MO Q8HPRN PRN constipation 01/30/24
gram/118 mL enema (Fleet Enema)
pantoprazole 40 mg tablet,delayed 40 mg PO BID Gastrointestinal 02/06/24
release (Protonix) Issue 60 days #120 tabs
Review of Systems
-
All other systems: A 12 pt ROS was Negative except as stated above in HPI
Vital Signs
Temp Pulse Resp BP Pulse Ox
98.7 F 88 16 103/67 93
02/12/24 11:50 02/12/24 11:50 02/12/24 11:50 02/12/24 11:50 02/12/24 11:50
Physical Exam
Exam
General: Well Developed and Well Nourished
Cardiac: S1/S2 and Regular Rhythm
GI: Soft, Non Tender, Non Distended and Normal Bowel Sounds
Results
WBC 6.9 10^3/uL (4.8-10.8) 02/12/24 08:45
Hgb 10.1 g/dL (12.0-16.0) L 02/12/24 08:45
Hct 31.3 % (37.0-47.0) L 02/12/24 08:45
MCV 87.2 fL (81.0-99.0) 02/12/24 08:45
Plt Count 255 10^3/uL (130-400) 02/12/24 08:45
Absolute Neuts (auto) 8.2 10^3/uL (1.4-6.5) H 02/11/24 12:48
PT 14.6 Sec (11.4-14.6) 02/11/24 12:48
INR 1.16 02/11/24 12:48
APTT 31.6 Sec (23.4-35.0) 02/11/24 12:48
Sodium 136 mmol/L (135-145) 02/12/24 08:45
Potassium 3.9 mmol/L (3.5-5.1) D 02/12/24 08:45
Chloride 110 mmol/L (98-107) H 02/12/24 08:45
Carbon Dioxide 22 mmol/L (22-30) 02/12/24 08:45
BUN 9 mg/dl (7-17) 02/12/24 08:45
Creatinine 0.4 mg/dL (0.6-1.0) L 02/12/24 08:45
Calcium 7.9 mg/dl (8.4-10.2) L 02/12/24 08:45
Total Bilirubin 0.5 mg/dl (0.2-1.3) 02/11/24 12:48
AST 15 U/L (14-36) 02/11/24 12:48
ALT 13 U/L (0-35) 02/11/24 12:48
Alkaline Phosphatase 88 U/L (38-126) 02/11/24 12:48
Diagnostic Image Results:
Prior GI Procedures:
EGD:
Colonoscopy:
Assessment / Plan
-
48-year-old female with a past medical history significant for CVA with left hemiparesis, morbid obesity, bipolar disorder, anxiety, HLD, DVT/PE on Eliquis, history of peptic ulcer disease with perforation, GERD, gastric bypass, history of
migraines, DM2, chronic narcotics secondary to chronic pain syndrome, ambulatory dysfunction, who presented to the emergency room with complaints of recurrent coffee-ground emesis. Recent admission for similar episodes, upper endoscopy showing
severe esophagitis, discharged on PPI twice daily. reported recent admission at [facility] with similar symptoms, with reported findings significant for constipation and started on a bowel regimen without endoscopic evaluation. Hemoglobin
stable compared to previous admission without any further drop. In fact hemoglobin is higher than previous visit.
Problem list:
-Coffee-ground emesis
-Abdominal pain
-Mild anemia
-History of perforated peptic ulcer
-GERD
-History of gastric bypass
-Ambulatory dysfunction, secondary to left-sided hemiparesis after CVA
-Constipation, likely chronic
-History of DVT/PE on Eliquis
Other pertinent medical history:
-Morbid obesity
-Bipolar disorder
-anxiety
-Insulin-dependent DM2
-Chronic pain syndrome with chronic narcotic use
-Ambulatory dysfunction/bedbound
Recommendations:
-Etiology of coffee-ground emesis likely from LA grade D esophagitis noted on recent endoscopy.
Endoscopy 02/01/2024 with severe grade D esophagitis, sleeve gastrectomy
-Continue PPI -Protonix 40 mg IV twice daily, temporarily added sucralfate 1 g AC/at bedtime. This can make her constipation worse, so would not use this long-term.
-Given no further drop in hemoglobin, okay to continue Eliquis
-Trend H&H and transfuse as needed to keep hemoglobin greater than 7
-Tolerating clear liquid diet, will advance to full liquid diet. Discussed with patient that she needs to have small frequent meals, low residue and low-fat diet with history of sleeve gastrectomy. Elevate head of the bed follow-up when she is
awake to prevent regurgitation of gastric contents.
No plans for upper endoscopy at this time but she will need to be seen in the office as outpatient and repeat EGD in 8 weeks to check on healing of the esophagitis and potentially needs to discuss regarding colonoscopy at that time as well.
-Constipation in the setting of narcotic use
Continue MiraLAX 17 g twice a day, Senokot twice a day.
Limit narcotic use.
Will titrate bowel regimen based on her bowel pattern.
Will follow
-
-
Thank you for consultation and allowing me to participate in the patient's care. Please call the crop nutrition scientist GI physician during the after hours with any questions or concerns.
[2024-02-12 15:10] VITALS: BP 121/77
--- NOTE | 2024-02-12 16:36 | W.PN.UPDATE ---
Update Note
Progress Note Update
Discussed with GI, cleared to resume Eliquis 5 mg twice a day, will resume tonight
[2024-02-12] MEDS: ELIQUIS 5 MG PO (20:29)
[2024-02-12 20:40] VITALS: BP 127/77
[2024-02-12] MEDS: ELAVIL 25 MG PO (22:20)
[2024-02-12] MEDS: MELATONIN 3 MG PO (22:21)
[2024-02-12] MEDS: LIPITOR 40 MG PO (22:22)
[2024-02-12 23:22] VITALS: BP 102/69
[2024-02-13] MEDS: ATIVAN 1 MG PO ×4 (00:29→18:05)
[2024-02-13 03:22] VITALS: BP 123/68
--- NOTE | 2024-02-13 05:51 | W.PN.HOSP.TC ---
Today's Communication/Plan
-
Monitor H&H
diet bowel regimen enema as per GI
Discharge planning
Assessment / Plan
Assessment / Plan
48-year-old female [facility] resident with a past medical history of cerebellar stroke with residual left-sided hemiparesis, DVT/PE on Eliquis, obesity status post gastric bypass surgery, peptic ulcer disease with remote perforation requiring
surgical repair, spinal cord cancer status post surgery, chronic back pain on chronic opioids, and opioid induced constipation presents with intractable vomiting, found to have coffee-ground emesis. Patient was recently admitted at [facility] 01/30/24- 02/06/24 for coffee-ground emesis, EGD on 02/01/[address] Mckinney shows grade D reflux esophagitis with no bleeding. She states that after discharge from [facility] 5 days ago, her coffee-ground emesis did improve. However
it returned this morning, and has been quite severe. Patient reports lightheadedness and dizziness. She also has substernal chest pain from the vomiting and esophagitis. She does have some mild epigastric pain as well. She has chronic back pain
from her spinal cord cancer status post surgery. She denies fever. No black or bloody stools.
#Recurrent coffee-ground emesis
#Grade D esophagitis seen on EGD on 02/01/2024
GI consult appreciated, Protonix 40 mg IV twice daily, carafate 1 gm ACHS
Diet advanced low residue low fat as per GI
H&H relatively stable, cont to monitor
Cleared to resume home anticoagulation as per GI
Eliquis since resumed, cont
#Constipation
bowel regimen prn Enema as per GI
#Subacute blood loss anemia versus dilution
H&H remains relatively stable, cont to monitor
Eliquis resumed as above
#Profound hypomagnesemia likely d/t GI losses/vomiting since resolved
Repleted and resolved
#Hypokalemia
Repleted and resolved
#Reported history of diabetes
Non-diabetic at this time
Recent A1c's non-diabetic range, no recent blood transfusions
Repeat A1c in 3 months with primary care recommended
#Chronic pain syndrome
#Chronic back pain
She is on morphine ER 60 mg every 12 hours, oxycodone 20 mg 4 times daily at home, Lyrica 200 mg 3 times a day
IV Dilaudid prn in case she vomits
#History of PE/DVT
Eliquis resumed as above
#Opioid-induced constipation
Continue MiraLAX twice a day, sennosides twice a day
#History of cerebellar stroke with left-sided hemiparesis
Patient has been bedbound for the last 7 years
She resides at [facility]
#Anxiety/depression
Continue Ativan 1 mg every 6 hours, amitriptyline
DVT prophylaxis�SCDs
Full code
Total time spent to see the patient on the floor, examine the patient, review data and lab results, discuss treatment plan with patient, nursing staff around 50 minutes.
Physical Exam
General: Morbidly obese, no acute distress, chronically debilitated
HEENT: Normocephalic, Atraumatic, EOMI, MMM
Respiratory: Clear to Auscultation bilaterally
Cardiac: Normal S1/S2, Regular Rate and Rhythm
GI: Soft, Nontender, Nondistended, Normal Bowel Sounds
Extremities: No Clubbing, Cyanosis, or Edema
Neuro: Left-sided hemiparesis baseline
Psych: Calm, Cooperative
Anticipated Discharge: 24 - 48 hours
Subjective/Interval History
-
Date of Service: February 13, 2024
No acute distress. Denies new acute issues. Reports overall feeling well. Tolerating diet.
Objective Data
-
Labs:
Laboratory Results
02/13/24
06:00
WBC Pending
Hgb Pending
Hct Pending
Plt Count Pending
Sodium Pending
Potassium Pending
Chloride Pending
Carbon Dioxide Pending
BUN Pending
Creatinine Pending
Glucose Pending
Calcium Pending
Vital Signs:
Vital Signs
Temp Pulse Resp BP Pulse Ox
97.3 F 77 19 123/68 95
02/13/24 03:22 02/13/24 03:22 02/13/24 03:22 02/13/24 03:22 02/13/24 03:22
I&O
02/11/24 02/12/24 02/13/24
06:59 06:59 06:59
Intake Total 1000 / 1000 1020 / 1020
Output Total 500 / 500
Balance 500 / 500 1020 / 1020
[2024-02-13] MEDS: DILAUDID 1 MG IV (06:00)
--- NOTE | 2024-02-13 08:19 | W.PN.GI.CBS2 ---
Today's Communication / Plan
-
Recommendations:
-Etiology of coffee-ground emesis likely from LA grade D esophagitis noted on recent endoscopy.
Endoscopy 02/01/2024 with severe grade D esophagitis, sleeve gastrectomy
-Continue PPI -Protonix 40 mg IV twice daily, temporarily added sucralfate 1 g AC/at bedtime. This can make her constipation worse, so would not use this long-term.
-Monitor Hgb on eliquis, h/h trended down without any evidence of bleeding, but at her baseline
-Trend H&H and transfuse as needed to keep hemoglobin greater than 7
-Tolerating full liquid diet- OK for low res and low fat diet. Discussed with patient that she needs to have small frequent meals, low residue and low-fat diet with history of sleeve gastrectomy. Elevate head of the bed follow-up when she is awake
to prevent regurgitation of gastric contents.
No plans for upper endoscopy at this time but she will need to be seen in the office as outpatient and repeat EGD in 8 weeks to check on healing of the esophagitis and potentially needs to discuss regarding colonoscopy at that time as well.
-Constipation in the setting of narcotic use
Continue MiraLAX 17 g twice a day, Senokot twice a day.
Will order milk of molasses enema since only a smear of stool in spite of the above regimen
Limit narcotic use.
Will titrate bowel regimen based on her bowel pattern.
Will follow
Assessment / Plan
-
48-year-old female with a past medical history significant for CVA with left hemiparesis, morbid obesity, bipolar disorder, anxiety, HLD, DVT/PE on Eliquis, history of peptic ulcer disease with perforation, GERD, gastric bypass, history of
migraines, DM2, chronic narcotics secondary to chronic pain syndrome, ambulatory dysfunction, who presented to the emergency room with complaints of recurrent coffee-ground emesis. Recent admission for similar episodes, upper endoscopy showing
severe esophagitis, discharged on PPI twice daily. reported recent admission at [facility] with similar symptoms, with reported findings significant for constipation and started on a bowel regimen without endoscopic evaluation. Hemoglobin
stable compared to previous admission without any further drop. In fact hemoglobin is higher than previous visit.
Problem list:
-Coffee-ground emesis
-Abdominal pain
-Mild anemia
-History of perforated peptic ulcer
-GERD
-History of gastric bypass
-Ambulatory dysfunction, secondary to left-sided hemiparesis after CVA
-Constipation, likely chronic
-History of DVT/PE on Eliquis
Other pertinent medical history:
-Morbid obesity
-Bipolar disorder
-anxiety
-Insulin-dependent DM2
-Chronic pain syndrome with chronic narcotic use
-Ambulatory dysfunction/bedbound
Recommendations:
-Etiology of coffee-ground emesis likely from LA grade D esophagitis noted on recent endoscopy.
Endoscopy 02/01/2024 with severe grade D esophagitis, sleeve gastrectomy
-Continue PPI -Protonix 40 mg IV twice daily, temporarily added sucralfate 1 g AC/at bedtime. This can make her constipation worse, so would not use this long-term.
-Monitor Hgb on eliquis, h/h trended down without any evidence of bleeding, but at her baseline
-Trend H&H and transfuse as needed to keep hemoglobin greater than 7
-Tolerating full liquid diet- OK for low res and low fat diet. Discussed with patient that she needs to have small frequent meals, low residue and low-fat diet with history of sleeve gastrectomy. Elevate head of the bed follow-up when she is awake
to prevent regurgitation of gastric contents.
No plans for upper endoscopy at this time but she will need to be seen in the office as outpatient and repeat EGD in 8 weeks to check on healing of the esophagitis and potentially needs to discuss regarding colonoscopy at that time as well.
-Constipation in the setting of narcotic use
Continue MiraLAX 17 g twice a day, Senokot twice a day.
Will order milk of molasses enema since only a smear of stool in spite of the above regimen
Limit narcotic use.
Will titrate bowel regimen based on her bowel pattern.
Will follow
Subjective
Subjective
Date of Service: February 13, 2024
Small smear of brown stool, tolerating full liquid diet
No abdominal pain, nausea, regurgitation
Objective
Data Reviewed
Laboratory Data:
Laboratory Results
PT 14.6 Sec (11.4-14.6) 02/11/24 12:48
INR 1.16 02/11/24 12:48
APTT 31.6 Sec (23.4-35.0) 02/11/24 12:48
Phosphorus 3.0 mg/dl (2.5-4.5) 02/12/24 08:45
Magnesium 2.1 mg/dl (1.6-2.3) 02/12/24 08:45
Total Bilirubin 0.5 mg/dl (0.2-1.3) 02/11/24 12:48
AST 15 U/L (14-36) 02/11/24 12:48
ALT 13 U/L (0-35) 02/11/24 12:48
Alkaline Phosphatase 88 U/L (38-126) 02/11/24 12:48
Vital Signs and I&O:
Vital Signs
Temp Pulse Resp BP Pulse Ox
97.3 F 77 19 123/68 95
02/13/24 03:22 02/13/24 03:22 02/13/24 03:22 02/13/24 03:22 02/13/24 03:22
I&O
02/12/24 02/13/24 02/14/24
06:59 06:59 06:59
Intake Total 1000 / 1000 1540 / 1540
Output Total 500 / 500 200 / 200
Balance 500 / 500 1340 / 1340
Physical Exam
Physical Exam
GI: Soft, Non Distended, Non Tender and Normal Bowel Sounds
--- NOTE | 2024-02-13 08:24 | W.PN.UPDATE ---
Update Note
Progress Note Update
message sent to office to arrange 4-6 [address] follow [address] Mckinney/NURSES SUPERINTENDENT/PA will need EGD/colon arrange at visit
[2024-02-13 08:25] VITALS: BP 116/46
[2024-02-13] MEDS: PROTONIX IV 40 MG IV ×2 (08:39→20:25)
[2024-02-13] MEDS: NSS (PRESERVATIVE FREE) 10 ML IV ×2 (08:39→20:25)
[2024-02-13] MEDS: MIRALAX 17 GRAMS PO ×2 (08:39→20:24)
[2024-02-13] MEDS: ELIQUIS 5 MG PO ×2 (08:40→20:24)
[2024-02-13] MEDS: ROXICODONE 20 MG PO ×4 (08:40→22:29)
[2024-02-13] MEDS: CARAFATE 1 GRAM PO ×4 (08:40→22:28)
[2024-02-13] MEDS: CLARITIN 10 MG PO (08:40)
[2024-02-13] MEDS: SENOKOT-S 1 TABLET PO ×2 (08:40→20:26)
[2024-02-13] MEDS: LIORESAL 10 MG PO ×3 (08:40→22:29)
[2024-02-13] MEDS: MS CONTIN (EXTENDED RELEASE) 60 MG PO ×2 (08:40→20:24)
[2024-02-13] MEDS: VITAMIN D3 (cholecalciferol) 50 MCG PO (08:40)
[2024-02-13] MEDS: LYRICA 200 MG PO ×3 (08:41→22:28)
[2024-02-13] MEDS: DESENEX/MITRAZOL/ZEASORB 1 APPLIC TOPICAL ×2 (08:42→20:23)
[2024-02-13] MEDS: ZADITOR OPHTH ×2 (08:43→20:26)
[2024-02-13 10:54] LABS: Blood Urea Nitrogen 7 mg/dl (7-17); Carbon Dioxide 19 mmol/L (22-30); Chloride 106 mmol/L (98-107); Estimated Creatinine Clearance > 125 ml/min; Glucose 123 mg/dl (70-99); Magnesium 1.9 mg/dl (1.6-2.3); Potassium 3.9 mmol/L (3.5-5.1); Sodium 133 mmol/L (135-145); eGFR > 60.00
[2024-02-13 11:09] VITALS: BP 132/66
[2024-02-13 12:19] LABS: Hematocrit 30.4 % (37.0-47.0); Hemoglobin 9.8 g/dL (12.0-16.0); Mean Corp Hgb Conc. 32.2 g/dL (33.0-37.0); Mean Corpuscular Volume 86.9 fL (81.0-99.0); Mean Platelet Volume 10.2 fL (7.4-10.4); Platelet Count 217 10^3/uL (130-400); Red Cell Dist. Width 14.8 % (11.5-14.5); White Blood Cell Count 7.1 10^3/uL (4.8-10.8)
--- NOTE | 2024-02-13 15:42 | CM ---
CM spoke with liaison for [place] regarding patient's request to discharge to [place]. Liaison confirmed there are no available beds for LTC. Patient notified. Discharge Plan of Care: Return to [facility] for LTC.
[2024-02-13 16:14] VITALS: BP 137/69
[2024-02-13] MEDS: REFRESH EYE DROPS (PF) 1 DROPS OPHTH ×2 (16:35→20:26)
[2024-02-13] MEDS: FIORICET 1 TAB PO (18:04)
[2024-02-13 19:37] VITALS: BP 103/62
--- NOTE | 2024-02-13 20:37 | PTCARENOTE ---
Pt with ordered MOM enema that is unfulfilled. Pt politely refusing enema at this time, states she does not want to be awake all night having bowel movements. Pt states she would prefer enema be given in the AM after breakfast.
[2024-02-13] MEDS: LIPITOR 40 MG PO (22:29)
[2024-02-13] MEDS: ELAVIL 25 MG PO (22:29)
[2024-02-13] MEDS: MELATONIN 3 MG PO (22:29)
[2024-02-13 23:33] VITALS: BP 124/65
[2024-02-14] MEDS: REFRESH EYE DROPS (PF) 1 DROPS OPHTH ×4 (00:18→20:33)
[2024-02-14] MEDS: ATIVAN 1 MG PO ×4 (00:18→18:10)
[2024-02-14] MEDS: DILAUDID 1 MG IV ×2 (02:41→16:15)
[2024-02-14 03:21] VITALS: BP 102/49
[2024-02-14] MEDS: REFRESH EYE DROPS (PF) OPHTH ×2 (04:18→16:11)
--- NOTE | 2024-02-14 06:23 | W.PN.GI.CBS2 ---
Today's Communication / Plan
-
See assessment and plan for details.
Assessment / Plan
-
1. Esophagitis: Severe, ulcerative, but no further gross bleeding, did tolerate diet yesterday, with GERD likely related to medications and decreased mobility. She is tolerating diet and no further gross bleeding. At this point would continue PPI
twice daily for now, continue Carafate for the next 2 weeks. She will follow-up with Dr. Mckinney as an outpatient, planned repeat EGD along with colonoscopy in around 2 months to assess healing and rule out underlying Gunter's esophagus.
2. Constipation: Multifactorial, benign exam now, small bowel movement yesterday. She is agreeable for enema today and will continue MiraLAX.
We will sign off for now, please call back with any further questions.
Subjective
Subjective
Date of Service: February 14, 2024
Patient doing okay, tolerated diet without difficulty, no vomiting, no significant abdominal pain, very small bowel movement yesterday, did not get enema.
Objective
Data Reviewed
Laboratory Data:
Laboratory Results
PT 14.6 Sec (11.4-14.6) 02/11/24 12:48
INR 1.16 02/11/24 12:48
APTT 31.6 Sec (23.4-35.0) 02/11/24 12:48
Phosphorus 3.0 mg/dl (2.5-4.5) 02/13/24 10:41
Magnesium 1.9 mg/dl (1.6-2.3) 02/13/24 10:41
Total Bilirubin 0.5 mg/dl (0.2-1.3) 02/11/24 12:48
AST 15 U/L (14-36) 02/11/24 12:48
ALT 13 U/L (0-35) 02/11/24 12:48
Alkaline Phosphatase 88 U/L (38-126) 02/11/24 12:48
Vital Signs and I&O:
Vital Signs
Temp Pulse Resp BP Pulse Ox
97.9 F 66 16 102/49 97
02/14/24 03:21 02/14/24 03:21 02/14/24 03:21 02/14/24 03:21 02/14/24 04:23
I&O
02/12/24 02/13/24 02/14/24
06:59 06:59 06:59
Intake Total 1000 / 1000 1540 / 1540 520 / 520
Output Total 500 / 500 200 / 200
Balance 500 / 500 1340 / 1340 520 / 520
Physical Exam
Physical Exam
General: NAD
Abdomen: normal bowel sounds, minimally distended though soft, no tenderness, no masses or bruits, no ascites
[2024-02-14 07:29] VITALS: BP 115/69
--- NOTE | 2024-02-14 07:29 | W.PN.HOSP.TC ---
Today's Communication/Plan
-
Monitor H&H
follow up response to enema
possible discharge tomorrow if H&H improves, patient remains stable/continues to improve
Assessment / Plan
Assessment / Plan
48-year-old female alf resident with a past medical history of cerebellar stroke with residual left-sided hemiparesis, DVT/PE on Eliquis, obesity status post gastric bypass surgery, peptic ulcer disease with remote perforation requiring
surgical repair, spinal cord cancer status post surgery, chronic back pain on chronic opioids, and opioid induced constipation presents with intractable vomiting, found to have coffee-ground emesis. Patient was recently admitted at [place]
[facility] 01/30/24- 02/06/24 for coffee-ground emesis, EGD on 02/01/[address] Mckinney shows grade D reflux esophagitis with no bleeding. She states that after discharge from [facility] 5 days ago, her coffee-ground emesis did improve. However
it returned this morning, and has been quite severe. Patient reports lightheadedness and dizziness. She also has substernal chest pain from the vomiting and esophagitis. She does have some mild epigastric pain as well. She has chronic back pain
from her spinal cord cancer status post surgery. She denies fever. No black or bloody stools.
#Recurrent coffee-ground emesis
#Grade D esophagitis seen on EGD on 02/01/2024
GI consult appreciated, Protonix 40 mg IV twice daily, carafate 1 gm ACHS
Diet advanced low residue low fat as per GI
H&H relatively stable, cont to monitor
Cleared to resume home anticoagulation as per GI
Eliquis since resumed, cont
#Constipation
bowel regimen prn Enema as per GI
#Subacute blood loss anemia versus dilution
H&H remains relatively stable, cont to monitor
Eliquis resumed as above
#Profound hypomagnesemia likely d/t GI losses/vomiting since resolved
Repleted and resolved
#Hypokalemia
Repleted and resolved
#Reported history of diabetes
Non-diabetic at this time
Recent A1c's non-diabetic range, no recent blood transfusions
Repeat A1c in 3 months with primary care recommended
#Chronic pain syndrome
#Chronic back pain
#Chronic opioid use likely dependence
She is on morphine ER 60 mg every 12 hours, oxycodone 20 mg 4 times daily at home, Lyrica 200 mg 3 times a day
IV Dilaudid prn
#History of PE/DVT
Eliquis resumed as above
#Opioid-induced constipation
Continue MiraLAX twice a day, sennosides twice a day
#History of cerebellar stroke with left-sided hemiparesis
Patient has been bedbound for the last 7 years
She resides at [facility]
#Anxiety/depression
Continue Ativan 1 mg every 6 hours, amitriptyline
DVT prophylaxis�SCDs
Full code
Total time spent to see the patient on the floor, examine the patient, review data and lab results, discuss treatment plan with patient, nursing staff around 50 minutes.
Physical Exam
General: Morbidly obese, no acute distress, chronically debilitated
HEENT: Normocephalic, Atraumatic, EOMI, MMM
Respiratory: Clear to Auscultation bilaterally
Cardiac: Normal S1/S2, Regular Rate and Rhythm
GI: Soft, Nontender, Nondistended, Normal Bowel Sounds
Extremities: No Clubbing, Cyanosis, or Edema
Neuro: Left-sided hemiparesis baseline
Psych: Calm, Cooperative
Anticipated Discharge: Within 24 hours
Subjective/Interval History
-
Date of Service: February 14, 2024
No acute distress. Reports overall feeling well. Appears comfortable at this time.
Objective Data
-
Labs:
Laboratory Results
02/14/24
06:00
WBC Pending
Hgb Pending
Hct Pending
Plt Count Pending
Sodium Pending
Potassium Pending
Chloride Pending
Carbon Dioxide Pending
BUN Pending
Creatinine Pending
Glucose Pending
Calcium Pending
Vital Signs:
Vital Signs
Temp Pulse Resp BP Pulse Ox
97.7 F 71 18 115/69 97
02/14/24 07:29 02/14/24 07:29 02/14/24 07:29 02/14/24 07:29 02/14/24 07:29
I&O
02/13/24 02/14/24 02/15/24
06:59 06:59 06:59
Intake Total 1540 / 1540 520 / 520
Output Total 200 / 200
Balance 1340 / 1340 520 / 520
[2024-02-14] MEDS: ELIQUIS 5 MG PO ×2 (08:10→20:32)
[2024-02-14] MEDS: MIRALAX 17 GRAMS PO ×2 (08:10→20:33)
[2024-02-14] MEDS: PROTONIX IV 40 MG IV ×2 (08:10→20:33)
[2024-02-14] MEDS: NSS (PRESERVATIVE FREE) 10 ML IV ×2 (08:10→20:33)
[2024-02-14] MEDS: SENOKOT-S 1 TABLET PO ×2 (08:11→20:32)
[2024-02-14] MEDS: LIORESAL 10 MG PO ×3 (08:11→22:21)
[2024-02-14] MEDS: CLARITIN 10 MG PO (08:11)
[2024-02-14] MEDS: CARAFATE 1 GRAM PO ×4 (08:11→22:22)
[2024-02-14] MEDS: LYRICA 200 MG PO ×3 (08:11→22:20)
[2024-02-14] MEDS: ROXICODONE 20 MG PO ×4 (08:11→22:21)
[2024-02-14] MEDS: VITAMIN D3 (cholecalciferol) 50 MCG PO (08:11)
[2024-02-14] MEDS: MS CONTIN (EXTENDED RELEASE) 60 MG PO ×2 (08:11→20:32)
[2024-02-14] MEDS: ZADITOR OPHTH ×2 (08:12→21:09)
[2024-02-14] MEDS: DESENEX/MITRAZOL/ZEASORB 1 APPLIC TOPICAL ×2 (08:16→20:34)
--- NOTE | 2024-02-14 09:42 | PTCARENOTE ---
pt received all 0800 medications. pt in agreement to receive MOM enema this morning with this nurse that was due 02/12. pt tried to convince to give after lunch but this nurse educated on importance of pt receiving it since it is overdue. pt is
agreeable to it one she finishing her breakfast.
[2024-02-14 10:29] VITALS: BP 98/55
--- NOTE | 2024-02-14 11:20 | PTCARENOTE ---
this RN entered the pts room to perform milk of molasses enema, the pt stated to this RN and Symone RN that the enema was never performed yesterday, this RN performed the enema and while this RN was performing the enema the pt stated, 'I feel like i
am taking it up the ass, this is so awkward', this RN asked the pt if she was in pain or wanted this RN to stop the enema and the pt stated to this RN, 'No i was just joking it is just an awkward thing to do that's all', this RN finished performing
the enema and changed the pts brief, pad, and gown, the pt is resting in stretcher in the lowest position, side rails up x2, call terry within reach, HOB elevated, no s/s of distress, the pt asked this RN for another menu and this RN provided one for
the pt, will continue to monitor the pt closely
--- NOTE | 2024-02-14 11:34 | PN.CDI ---
CDI
- -
CDI:
Physician Documentation Request
Admit Date: 02/11/24 17:19
Dear Doctor Teo,
Please review the following and provide your response in the progress notes.
Clinical Indicators:
- 02/10 H&P 'chronic back pain on chronic opioids, and opioid induced constipation'
- morphine 60 mg tablet,extended release Q12
- oxycodone 20 mg QID
- 02/12 PN 'Chronic pain syndrome'
- Current regimen continued plus Hydromorphone 1mg x 3, Morphine sulphate 4mg x 1
If possible, please provide further specificity as outlined below:
Opioid Use, with or without dependence
Opioid dependence
Other
Use of terms such as suspected, likely, concern for, or probable (associated with a specific diagnosis that is being evaluated, monitored, or treated as if it exists) are acceptable and can be coded in the inpatient setting, when documented at the
time of discharge.
Thank you,
Severiano Maldonado RN
CDI Specialist
Please use your independent medical judgment in providing your response.
--- NOTE | 2024-02-14 13:00 | PTCARENOTE ---
the pt pressed the call terry and this RN entered the pts room, the pt stated that she had a bowel movement and needed to be changed, this RN and Symone RN went into the pts room together to clean and change the pt and the pt stated to this RN and
Symone BALDWIN, 'Have you guys come to violate me', this RN asked the pt what she meant by that and the pt laughed and stated, 'I was just kidding i just didn't want another enema again', this RN and Symone BALDWIN cleaned the pt and changed the pts pad,
brief, gown, and lineleón, the pt was repositioned in the bed for comfort, the pt is resting in stretcher in the lowest position, side rails up x2, call terry within reach, HOB elevated, will continue to monitor the pt closely
[2024-02-14 15:00] VITALS: BP 101/66
[2024-02-14 15:48] LABS: Hematocrit 31.8 % (37.0-47.0); Hemoglobin 10.2 g/dL (12.0-16.0); Mean Corp Hgb Conc. 32.1 g/dL (33.0-37.0); Mean Corpuscular Hgb 27.9 pg (27.0-31.0); Mean Corpuscular Volume 86.9 fL (81.0-99.0); Mean Platelet Volume 10.3 fL (7.4-10.4); Platelet Count 227 10^3/uL (130-400); Red Blood Cell Count 3.66 10^6/uL (4.20-5.40); Red Cell Dist. Width 14.7 % (11.5-14.5); White Blood Cell Count 5.3 10^3/uL (4.8-10.8)
[2024-02-14 16:00] LABS: Blood Urea Nitrogen 7 mg/dl (7-17); Calcium 8.8 mg/dl (8.4-10.2); Carbon Dioxide 25 mmol/L (22-30); Chloride 104 mmol/L (98-107); Estimated Creatinine Clearance > 125 ml/min; Glucose 113 mg/dl (70-99); Magnesium 1.7 mg/dl (1.6-2.3); Phosphorus 3.9 mg/dl (2.5-4.5); Potassium 4.4 mmol/L (3.5-5.1); Sodium 136 mmol/L (135-145); eGFR > 60.00
[2024-02-14] MEDS: FIORICET 1 TAB PO ×2 (16:20→22:21)
[2024-02-14] MEDS: MELATONIN 3 MG PO (22:21)
[2024-02-14] MEDS: ELAVIL 25 MG PO (22:21)
[2024-02-14] MEDS: LIPITOR 40 MG PO (22:21)
[2024-02-14 23:07] VITALS: BP 120/67
[2024-02-15] MEDS: ATIVAN 1 MG PO ×4 (00:25→23:26)
[2024-02-15] MEDS: REFRESH EYE DROPS (PF) 1 DROPS OPHTH ×3 (00:25→23:26)
[2024-02-15] MEDS: REFRESH EYE DROPS (PF) OPHTH ×5 (03:31→16:32)
[2024-02-15] MEDS: FIORICET 1 TAB PO ×2 (05:27→12:11)
[2024-02-15] MEDS: DILAUDID 1 MG IV ×2 (05:27→16:37)
--- NOTE | 2024-02-15 07:01 | W.PN.HOSP.TC ---
Today's Communication/Plan
-
monitor bowel movements
Cont bowel regimen
considering repeat enema
cont monitoring off abx
pain control
Assessment / Plan
Assessment / Plan
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
surgical repair, spinal cord cancer status post surgery, chronic back pain on chronic opioids, and opioid induced constipation presents with intractable vomiting, found to have coffee-ground emesis. Patient was recently admitted at [place]
[facility] 01/30/24- 02/06/24 for coffee-ground emesis, EGD on 02/01/[address] Mckinney shows grade D reflux esophagitis with no bleeding. She states that after discharge from [facility] 5 days ago, her coffee-ground emesis did improve. However
it returned this morning, and has been quite severe. Patient reports lightheadedness and dizziness. She also has substernal chest pain from the vomiting and esophagitis. She does have some mild epigastric pain as well. She has chronic back pain
from her spinal cord cancer status post surgery. She denies fever. No black or bloody stools.
#Recurrent coffee-ground emesis
#Grade D esophagitis seen on EGD on 02/01/2024
GI consult appreciated, Protonix 40 mg IV twice daily, carafate 1 gm ACHS
Diet advanced low residue low fat as per GI
H&H relatively stable trending up
Cleared to resume home anticoagulation as per GI
Eliquis since resumed, cont
#Constipation
bowel regimen prn Enema as per GI
despite large bowel movement following Enema
Follow up Abd XR notes large amount of fecal material throughout colon mildly progressed
will cont to monitor at this time, consider repeat enema
#Subacute blood loss anemia versus dilution
H&H remains relatively stable trending up
Eliquis resumed as above
#Profound hypomagnesemia likely d/t GI losses/vomiting since resolved
Repleted and resolved
#Hypokalemia
Repleted and resolved
#Reported history of diabetes
Non-diabetic at this time
Recent A1c's non-diabetic range, no recent blood transfusions
Repeat A1c in 3 months with primary care recommended
#Chronic pain syndrome
#Chronic back pain
#Chronic opioid use likely dependence
She is on morphine ER 60 mg every 12 hours, oxycodone 20 mg 4 times daily at home, Lyrica 200 mg 3 times a day
IV Dilaudid prn
#History of PE/DVT
Eliquis resumed as above
#Opioid-induced constipation
Continue MiraLAX twice a day, sennosides twice a day
#History of cerebellar stroke with left-sided hemiparesis
Patient has been bedbound for the last 7 years
She resides at [facility]
#Anxiety/depression
Continue Ativan 1 mg every 6 hours, amitriptyline
#Persistent intermittent cough, patient reports occasionally 'gurgling'
Previous Obstruction Series XR had noted possible mild right upper lobe pna possible artifact
Notably patient had recently completed a course of abx for aspiration pneumonia last recent hospitalization here
02/14 CXR also notes right-sided pna but again possible artifact
no white count elevation, afebrile, stable respiratory status on room air.
will cont to monitor off abx at this time and consider further imaging with CT as necessary
DVT prophylaxis�SCDs
Full code
Total time spent to see the patient on the floor, examine the patient, review data and lab results, discuss treatment plan with patient, nursing staff around 50 minutes.
Physical Exam
General: Morbidly obese, no acute distress, chronically debilitated
HEENT: Normocephalic, Atraumatic, EOMI, MMM
Respiratory: Clear to Auscultation bilaterally
Cardiac: Normal S1/S2, Regular Rate and Rhythm
GI: Soft, Nontender, Nondistended, Normal Bowel Sounds
Extremities: No Clubbing, Cyanosis, or Edema
Neuro: Left-sided hemiparesis baseline
Psych: Calm, Cooperative
Anticipated Discharge: 24 - 48 hours
Subjective/Interval History
-
Date of Service: February 15, 2024
no further bowel movements since Enema yesterday, but reports large bowel movement then. denies nausea. Reports cough/gurgling.
Objective Data
-
Labs:
Laboratory Results
02/15/24
06:00
WBC Pending
Hgb Pending
Hct Pending
Plt Count Pending
Sodium Pending
Potassium Pending
Chloride Pending
Carbon Dioxide Pending
BUN Pending
Creatinine Pending
Glucose Pending
Calcium Pending
Vital Signs:
Vital Signs
Temp Pulse Resp BP Pulse Ox
97.8 F 69 18 120/67 98
02/14/24 23:07 02/14/24 23:07 02/14/24 23:07 02/14/24 23:07 02/14/24 23:07
I&O
02/14/24 02/15/24 02/16/24
06:59 06:59 06:59
Intake Total 520 / 520 1979
Balance 520 / 520 1979
[2024-02-15 08:00] VITALS: BP 129/73
[2024-02-15] MEDS: VITAMIN D3 (cholecalciferol) 50 MCG PO (08:43)
[2024-02-15] MEDS: LYRICA 200 MG PO ×3 (08:43→21:27)
[2024-02-15] MEDS: SENOKOT-S 1 TABLET PO ×2 (08:43→20:35)
[2024-02-15] MEDS: CLARITIN 10 MG PO (08:43)
[2024-02-15] MEDS: CARAFATE 1 GRAM PO ×4 (08:43→21:27)
[2024-02-15] MEDS: NSS (PRESERVATIVE FREE) 10 ML IV ×2 (08:44→20:35)
[2024-02-15] MEDS: ROXICODONE 20 MG PO ×3 (08:44→21:27)
[2024-02-15] MEDS: PROTONIX IV 40 MG IV ×2 (08:44→20:35)
[2024-02-15] MEDS: MS CONTIN (EXTENDED RELEASE) 60 MG PO ×2 (08:44→20:35)
[2024-02-15] MEDS: MIRALAX 17 GRAMS PO ×2 (08:44→20:35)
[2024-02-15] MEDS: ZADITOR 1 DROP OPHTH (08:45)
[2024-02-15] MEDS: LIORESAL 10 MG PO ×3 (08:49→21:26)
[2024-02-15] MEDS: ELIQUIS 5 MG PO ×2 (08:49→20:30)
[2024-02-15] MEDS: DESENEX/MITRAZOL/ZEASORB 1 APPLIC TOPICAL ×2 (08:50→20:36)
[2024-02-15] MEDS: ZOFRAN 4 MG IV (09:24)
--- NOTE | 2024-02-15 11:03 | VATNOTE ---
Pt refused to be seen by VAT this AM. Pt stated, 'She was just in here to change it, I don't need you to look at it. I have a migraine!' Pt's ML was redressed last night. Will attempt to see her again before end of shift.
--- NOTE | 2024-02-15 15:02 | CM ---
Continue medical workup, coffee ground emesis again on 02/14/24. Discharge Plan of Care: Return to [facility] for resumption of LTC. Referral previously forwarded.
[2024-02-15 16:00] VITALS: BP 126/84
[2024-02-15] MEDS: ATIVAN PO (18:36)
[2024-02-15] MEDS: ROXICODONE PO (18:36)
--- NOTE | 2024-02-15 18:39 | PTCARENOTE ---
Ativan and oxy scheduled for 1800 not given. Patient drowsy.
[2024-02-15] MEDS: ZADITOR OPHTH (20:37)
[2024-02-15] MEDS: ELAVIL 25 MG PO (21:26)
[2024-02-15] MEDS: LIPITOR 40 MG PO (21:27)
[2024-02-15] MEDS: MELATONIN 3 MG PO (21:27)
[2024-02-15 23:17] VITALS: BP 121/76
[2024-02-16] MEDS: DILAUDID 1 MG IV (00:03)
[2024-02-16] MEDS: REFRESH EYE DROPS (PF) OPHTH (03:23)
[2024-02-16] MEDS: ATIVAN 1 MG PO ×4 (05:57→23:02)
[2024-02-16] MEDS: FIORICET 1 TAB PO ×2 (05:57→18:36)
--- NOTE | 2024-02-16 06:49 | W.PN.HOSP.TC ---
Today's Communication/Plan
-
Milk and molasses enema
cont bowel regimen
IV dilaudid prn converted to PO, taper as tolerated
Assessment / Plan
Assessment / Plan
48-year-old female [facility] resident with a past medical history of cerebellar stroke with residual left-sided hemiparesis, DVT/PE on Eliquis, obesity status post gastric bypass surgery, peptic ulcer disease with remote perforation requiring
surgical repair, spinal cord cancer status post surgery, chronic back pain on chronic opioids, and opioid induced constipation presents with intractable vomiting, found to have coffee-ground emesis. Patient was recently admitted at [place]
[facility] 01/30/24- 02/06/24 for coffee-ground emesis, EGD on 02/01/[address] Mckinney shows grade D reflux esophagitis with no bleeding. She states that after discharge from [facility] 5 days ago, her coffee-ground emesis did improve. However
it returned this morning, and has been quite severe. Patient reports lightheadedness and dizziness. She also has substernal chest pain from the vomiting and esophagitis. She does have some mild epigastric pain as well. She has chronic back pain
from her spinal cord cancer status post surgery. She denies fever. No black or bloody stools.
#Recurrent coffee-ground emesis
#Grade D esophagitis seen on EGD on 02/01/2024
GI consult appreciated, Protonix 40 mg IV twice daily, carafate 1 gm ACHS
Diet advanced low residue low fat as per GI
H&H relatively stable trending up
Cleared to resume home anticoagulation as per GI
Eliquis since resumed, cont
#Constipation
bowel regimen prn Enema as per GI
despite large bowel movement following Enema
Follow up Abd XR notes large amount of fecal material throughout colon mildly progressed
Enema repeated with milk and molasses
#Subacute blood loss anemia versus dilution
H&H remains relatively stable trended up
#Profound hypomagnesemia likely d/t GI losses/vomiting since resolved
Repleted and resolved
#Hypokalemia
Repleted and resolved
#Reported history of diabetes
Non-diabetic at this time
Recent A1c's non-diabetic range, no recent blood transfusions
Repeat A1c in 3 months with primary care recommended
#Chronic pain syndrome
#Chronic back pain
#Chronic opioid use likely dependence
She is on morphine ER 60 mg every 12 hours, oxycodone 20 mg 4 times daily at home, Lyrica 200 mg 3 times a day
IV Dilaudid prn converted to PO, taper as tolerated
#History of PE/DVT
cont Eliquis
#Opioid-induced constipation
Continue MiraLAX twice a day, sennosides twice a day
#History of cerebellar stroke with left-sided hemiparesis
Patient has been bedbound for the last 7 years
She resides at [facility]
#Anxiety/depression
Continue Ativan 1 mg every 6 hours, amitriptyline
#Persistent intermittent cough, patient reports occasionally 'gurgling'
Previous Obstruction Series XR had noted possible mild right upper lobe pna possible artifact
Notably patient had recently completed a course of abx for aspiration pneumonia last recent hospitalization here
02/14 CXR also notes right-sided pna but again possible artifact
no white count elevation, afebrile, stable respiratory status on room air.
will cont to monitor off abx at this time, outpt CT recommended
#Clear Discharge Left Ear
ENT eval appreciated no infection/bleeding noted, no therapy recommended
DVT prophylaxis�SCDs
Full code
Total time spent to see the patient on the floor, examine the patient, review data and lab results, discuss treatment plan with patient, nursing staff around 50 minutes.
Physical Exam
General: Morbidly obese, no acute distress, chronically debilitated
HEENT: Normocephalic, Atraumatic, EOMI, MMM, clear drainage left ear appreciated
Respiratory: Clear to Auscultation bilaterally
Cardiac: Normal S1/S2, Regular Rate and Rhythm
GI: Soft, Nontender, Nondistended, Normal Bowel Sounds
Extremities: No Clubbing, Cyanosis, or Edema
Neuro: Left-sided hemiparesis baseline
Psych: Calm, Cooperative
Anticipated Discharge: 24 - 48 hours
Subjective/Interval History
-
Date of Service: February 16, 2024
No bowel movement since enema. Abd XR noted significant stool burden remains present. Patient otherwise no acute distress. denies nausea vomiting. Notes persistent clear drainage left ear.
Objective Data
-
Vital Signs:
Vital Signs
Temp Pulse Resp BP Pulse Ox
99.6 F 79 20 121/76 97
02/15/24 23:17 02/15/24 23:17 02/15/24 23:17 02/15/24 23:17 02/15/24 23:17
I&O
02/14/24 02/15/24 02/16/24
06:59 06:59 06:59
Intake Total 520 / 520 1979 460 / 460
Balance 520 / 520 1979 460 / 460
[2024-02-16 07:46] VITALS: BP 99/55
[2024-02-16] MEDS: VITAMIN D3 (cholecalciferol) 50 MCG PO (08:21)
[2024-02-16] MEDS: LYRICA 200 MG PO ×3 (08:21→22:00)
[2024-02-16] MEDS: LIORESAL 10 MG PO ×3 (08:21→21:59)
[2024-02-16] MEDS: SENOKOT-S 1 TABLET PO ×2 (08:21→20:17)
[2024-02-16] MEDS: ROXICODONE 20 MG PO ×4 (08:21→21:59)
[2024-02-16] MEDS: CARAFATE 1 GRAM PO ×4 (08:21→21:59)
[2024-02-16] MEDS: MIRALAX 17 GRAMS PO ×2 (08:22→20:14)
[2024-02-16] MEDS: ELIQUIS 5 MG PO ×2 (08:22→20:16)
[2024-02-16] MEDS: CLARITIN 10 MG PO (08:22)
[2024-02-16] MEDS: REFRESH EYE DROPS (PF) 1 DROPS OPHTH ×5 (08:22→23:02)
[2024-02-16] MEDS: MS CONTIN (EXTENDED RELEASE) 60 MG PO ×2 (08:22→20:17)
[2024-02-16] MEDS: PROTONIX IV 40 MG IV ×2 (08:22→20:16)
[2024-02-16] MEDS: NSS (PRESERVATIVE FREE) 10 ML IV ×2 (08:22→20:16)
[2024-02-16] MEDS: ZADITOR OPHTH ×2 (08:23→20:11)
[2024-02-16] MEDS: DESENEX/MITRAZOL/ZEASORB 1 APPLIC TOPICAL ×2 (08:32→20:09)
[2024-02-16] MEDS: DILAUDID 2 MG PO ×2 (12:13→23:30)
[2024-02-16 15:39] VITALS: BP 138/73
--- NOTE | 2024-02-16 16:17 | CM ---
Discharge Plan of Care: Return to [facility] for resumption of LTC.
--- NOTE | 2024-02-16 17:38 | CON.MD ---
Consultation - Medical
-
ENT consulted for history of left sided otorrhea
Pt seen and full consult dictated.
No ear disease noted as far as infection or bleeding.
No therapy recommended for now.
Please call with any questions.
--- NOTE | 2024-02-16 17:38 | PTCARENOTE ---
pt given milk and molasses enema this afternoon by this nurse. pt had partial/adequate relief after enema. pt states that she will need to eventually need to go back on bedpan in hopes to have another bm. pt is a heavy two turn. this nurse attempted
to brush matted hair the other day for 45 minutes. pt asked if hair was able to be fully brushed but it is not possibly at this time
[2024-02-16] MEDS: ELAVIL 25 MG PO (21:59)
[2024-02-16] MEDS: LIPITOR 40 MG PO (21:59)
[2024-02-16] MEDS: MELATONIN 3 MG PO (21:59)
[2024-02-16 23:05] VITALS: BP 145/88
[2024-02-17] MEDS: REFRESH EYE DROPS (PF) OPHTH (04:08)
[2024-02-17] MEDS: ATIVAN 1 MG PO ×4 (06:00→23:37)
[2024-02-17] MEDS: DILAUDID 2 MG PO ×2 (06:02→16:54)
--- NOTE | 2024-02-17 06:59 | W.PN.HOSP.TC ---
Today's Communication/Plan
-
cont bowel regimen
taper prn PO dilaudid
Abd XR in AM
Assessment / Plan
Assessment / Plan
48-year-old female group home resident with a past medical history of cerebellar stroke with residual left-sided hemiparesis, DVT/PE on Eliquis, obesity status post gastric bypass surgery, peptic ulcer disease with remote perforation requiring
surgical repair, spinal cord cancer status post surgery, chronic back pain on chronic opioids, and opioid induced constipation presents with intractable vomiting, found to have coffee-ground emesis. Patient was recently admitted at [facility] 01/30/24- 02/06/24 for coffee-ground emesis, EGD on 02/01/[address] Mckinney shows grade D reflux esophagitis with no bleeding. She states that after discharge from [facility] 5 days ago, her coffee-ground emesis did improve. However
it returned this morning, and has been quite severe. Patient reports lightheadedness and dizziness. She also has substernal chest pain from the vomiting and esophagitis. She does have some mild epigastric pain as well. She has chronic back pain
from her spinal cord cancer status post surgery. She denies fever. No black or bloody stools.
#Recurrent coffee-ground emesis
#Grade D esophagitis seen on EGD on 02/01/2024
GI consult appreciated, Protonix 40 mg IV twice daily, carafate 1 gm ACHS
Diet advanced low residue low fat as per GI
H&H relatively stable trending up
Cleared to resume home anticoagulation as per GI
Eliquis since resumed, cont
#Constipation
bowel regimen prn Enema as per GI
despite large bowel movement following Enema
Follow up Abd XR notes large amount of fecal material throughout colon mildly progressed
Enema repeated with milk and molasses 02/15 subsequent good response
repeat Abd XR 02/17 AM
#Subacute blood loss anemia versus dilution
H&H remains relatively stable trended up
#Profound hypomagnesemia likely d/t GI losses/vomiting since resolved
Repleted and resolved
#Hypokalemia
Repleted and resolved
#Reported history of diabetes
Non-diabetic at this time
Recent A1c's non-diabetic range, no recent blood transfusions
Repeat A1c in 3 months with primary care recommended
#Chronic pain syndrome
#Chronic back pain
#Chronic opioid use likely dependence
She is on morphine ER 60 mg every 12 hours, oxycodone 20 mg 4 times daily at home, Lyrica 200 mg 3 times a day
IV Dilaudid prn converted to PO, tapered to q8hprn
Patient reports unable to receive Tylenol due to episode gastric ulcer perforation repair [facility]
Reports that she was instructed never to take Tylenol during that hospitalization
Patient aware she there is Tylenol in home medication Fioricet and reports tolerating well
[facility] records requested
#History of PE/DVT
cont Eliquis
#Opioid-induced constipation
Continue MiraLAX twice a day, sennosides twice a day
#History of cerebellar stroke with left-sided hemiparesis
Patient has been bedbound for the last 7 years
She resides at [facility]
#Anxiety/depression
Continue Ativan 1 mg every 6 hours, amitriptyline
#Persistent intermittent cough, patient reports occasionally 'gurgling'
Previous Obstruction Series XR had noted possible mild right upper lobe pna possible artifact
Notably patient had recently completed a course of abx for aspiration pneumonia last recent hospitalization here
02/14 CXR also notes right-sided pna but again possible artifact
no white count elevation, afebrile, stable respiratory status on room air.
will cont to monitor off abx at this time, outpt CT recommended
#Clear Discharge Left Ear
ENT eval appreciated no infection/bleeding noted, no therapy recommended
DVT prophylaxis�SCDs
Full code
Total time spent to see the patient on the floor, examine the patient, review data and lab results, discuss treatment plan with patient, nursing staff around 50 minutes.
Physical Exam
General: Morbidly obese, no acute distress, chronically debilitated
HEENT: Normocephalic, Atraumatic, EOMI, MMM, clear drainage left ear appreciated
Respiratory: Clear to Auscultation bilaterally
Cardiac: Normal S1/S2, Regular Rate and Rhythm
GI: Soft, Nontender, Nondistended, Normal Bowel Sounds
Extremities: No Clubbing, Cyanosis, or Edema
Neuro: Left-sided hemiparesis baseline
Psych: Calm, Cooperative
Anticipated Discharge: 24 - 48 hours
Subjective/Interval History
-
Date of Service: February 17, 2024
No acute distress resting comfortably in bed. Reports episode nausea following prn Dilaudid recently received Zofran with subsequent improvement in symptoms. denies vomiting. Endorses significant relief with milk and molasses enema day prior
followed by a regular bowel movement later on.
Objective Data
-
Vital Signs:
Vital Signs
Temp Pulse Resp BP Pulse Ox
98.5 F 85 14 145/88 94
02/16/24 23:05 02/16/24 23:05 02/16/24 23:05 02/16/24 23:05 02/16/24 23:05
I&O
02/15/24 02/16/24 02/17/24
06:59 06:59 06:59
Intake Total 1979 460 / 460 2220 / 2220
Balance 1979 460 / 460 2220 / 2220
[2024-02-17 07:44] VITALS: BP 103/58
[2024-02-17] MEDS: REFRESH EYE DROPS (PF) 1 DROPS OPHTH ×5 (08:51→23:37)
[2024-02-17] MEDS: PROTONIX IV 40 MG IV ×2 (08:52→20:25)
[2024-02-17] MEDS: NSS (PRESERVATIVE FREE) 10 ML IV ×2 (08:53→20:25)
[2024-02-17] MEDS: CARAFATE 1 GRAM PO ×4 (08:53→21:53)
[2024-02-17] MEDS: LIORESAL 10 MG PO ×3 (08:53→21:53)
[2024-02-17] MEDS: MIRALAX 17 GRAMS PO ×2 (08:53→20:24)
[2024-02-17] MEDS: SENOKOT-S 1 TABLET PO ×2 (08:54→20:24)
[2024-02-17] MEDS: VITAMIN D3 (cholecalciferol) 50 MCG PO (08:54)
[2024-02-17] MEDS: MS CONTIN (EXTENDED RELEASE) 60 MG PO ×2 (08:54→20:25)
[2024-02-17] MEDS: ELIQUIS 5 MG PO ×2 (08:54→20:25)
[2024-02-17] MEDS: CLARITIN 10 MG PO (08:54)
[2024-02-17] MEDS: ROXICODONE 20 MG PO ×4 (08:55→21:52)
[2024-02-17] MEDS: LYRICA 200 MG PO ×3 (08:55→21:52)
[2024-02-17] MEDS: ZOFRAN 4 MG IV (09:06)
[2024-02-17] MEDS: ZADITOR OPHTH ×2 (09:11→21:00)
[2024-02-17] MEDS: DESENEX/MITRAZOL/ZEASORB 1 APPLIC TOPICAL ×2 (09:11→20:26)
[2024-02-17] MEDS: FIORICET 1 TAB PO ×2 (13:33→21:52)
[2024-02-17 15:27] VITALS: BP 110/65
--- NOTE | 2024-02-17 18:35 | CM ---
Discharge Plan of Care: Return to [facility] for LTC when medically cleared.
[2024-02-17] MEDS: ELAVIL 25 MG PO (21:52)
[2024-02-17] MEDS: LIPITOR 40 MG PO (21:53)
[2024-02-17] MEDS: MELATONIN 3 MG PO (21:53)
[2024-02-17 23:40] VITALS: BP 114/67
[2024-02-18] MEDS: REFRESH EYE DROPS (PF) 1 DROPS OPHTH ×5 (03:32→21:27)
[2024-02-18] MEDS: DILAUDID 2 MG PO ×2 (03:32→18:17)
[2024-02-18] MEDS: ATIVAN 1 MG PO ×3 (06:18→18:11)
[2024-02-18] MEDS: FIORICET 1 TAB PO (06:18)
[2024-02-18] MEDS: ZOFRAN 4 MG IV (06:21)
--- NOTE | 2024-02-18 06:38 | W.PN.HOSP.TC ---
Today's Communication/Plan
-
bisacodyl once
cont bowel regimen
pain control, Dilaudid taper as tolerated
Assessment / Plan
Assessment / Plan
48-year-old female [facility] resident with a past medical history of cerebellar stroke with residual left-sided hemiparesis, DVT/PE on Eliquis, obesity status post gastric bypass surgery, peptic ulcer disease with remote perforation requiring
surgical repair, spinal cord cancer status post surgery, chronic back pain on chronic opioids, and opioid induced constipation presents with intractable vomiting, found to have coffee-ground emesis. Patient was recently admitted at [facility] 01/30/24- 02/06/24 for coffee-ground emesis, EGD on 02/01/[address] Mckinney shows grade D reflux esophagitis with no bleeding. She states that after discharge from [facility] 5 days ago, her coffee-ground emesis did improve. However
it returned this morning, and has been quite severe. Patient reports lightheadedness and dizziness. She also has substernal chest pain from the vomiting and esophagitis. She does have some mild epigastric pain as well. She has chronic back pain
from her spinal cord cancer status post surgery. She denies fever. No black or bloody stools.
#Recurrent coffee-ground emesis
#Grade D esophagitis seen on EGD on 02/01/2024
GI consult appreciated, Protonix 40 mg IV twice daily, carafate 1 gm ACHS
Diet advanced low residue low fat as per GI
H&H stable trended up
Cleared to resume home anticoagulation as per GI
Eliquis since resumed, cont
#Likely opiate induced Constipation
bowel regimen prn Enema as per GI
despite large bowel movement following Enema
Follow up Abd XR notes large amount of fecal material throughout colon mildly progressed
Enema repeated with milk and molasses 02/15 subsequent good response
repeat Abd XR 02/17 AM noted some improvement in constipation.
02/17 bisacodyl once attempted
Morning nausea past few days suspect d/t severe constipation vs side effect prn dilaudid taken in morning (discussed with patient who wants to cont with Dilaudid)
#Subacute blood loss anemia versus dilution
H&H stable trended up
#Profound hypomagnesemia likely d/t GI losses/vomiting since resolved
Repleted and resolved
#Hypokalemia
Repleted and resolved
#Reported history of diabetes
Non-diabetic at this time
Recent A1c's non-diabetic range, no recent blood transfusions
Repeat A1c in 3 months with primary care recommended
#Chronic pain syndrome
#Chronic back pain
#Chronic opioid use likely dependence
She is on morphine ER 60 mg every 12 hours, oxycodone 20 mg 4 times daily at home, Lyrica 200 mg 3 times a day
IV Dilaudid prn converted to PO, tapered to q8hprn
Patient reports unable to receive Tylenol due to episode gastric ulcer perforation repair [facility]
Reports that she was instructed never to take Tylenol during that hospitalization
Patient aware she there is Tylenol in home medication Fioricet and reports tolerating well
[facility] records requested
#History of PE/DVT
cont Eliquis
#Opioid-induced constipation
Continue MiraLAX twice a day, sennosides twice a day
#History of cerebellar stroke with left-sided hemiparesis
Patient has been bedbound for the last 7 years
She resides at [facility]
#Anxiety/depression
Continue Ativan 1 mg every 6 hours, amitriptyline
#Persistent intermittent cough, patient reports occasionally 'gurgling'
Previous Obstruction Series XR had noted possible mild right upper lobe pna possible artifact
Notably patient had recently completed a course of abx for aspiration pneumonia last recent hospitalization here
02/14 CXR also notes right-sided pna but again possible artifact
no white count elevation, afebrile, stable respiratory status on room air.
will cont to monitor off abx at this time, outpt CT recommended
#Clear Discharge Left Ear
ENT eval appreciated no infection/bleeding noted, no therapy recommended
DVT prophylaxis�SCDs
Full code
Total time spent to see the patient on the floor, examine the patient, review data and lab results, discuss treatment plan with patient, nursing staff around 50 minutes.
Physical Exam
General: Morbidly obese, no acute distress, chronically debilitated
HEENT: Normocephalic, Atraumatic, EOMI, MMM, clear drainage left ear appreciated
Respiratory: Clear to Auscultation bilaterally
Cardiac: Normal S1/S2, Regular Rate and Rhythm
GI: Soft, Nontender, Nondistended, Normal Bowel Sounds
Extremities: No Clubbing, Cyanosis, or Edema
Neuro: Left-sided hemiparesis baseline
Psych: Calm, Cooperative
Anticipated Discharge: 24 - 48 hours
Subjective/Interval History
-
Date of Service: February 18, 2024
reports nausea vomiting this morning. Noted episode occurred following morning prn dilaudid. No bowel movements noted since enema.
Objective Data
-
Vital Signs:
Vital Signs
Temp Pulse Resp BP Pulse Ox
98.4 F 80 16 114/67 98
02/17/24 23:40 02/17/24 23:40 02/17/24 23:40 02/17/24 23:40 02/17/24 23:40
I&O
02/16/24 02/17/24 02/18/24
06:59 06:59 06:59
Intake Total 460 / 460 2220 / 2220 480 / 480
Balance 460 / 460 2220 / 2220 480 / 480
[2024-02-18 07:11] VITALS: BP 143/83
[2024-02-18] MEDS: CARAFATE 1 GRAM PO ×4 (08:35→23:47)
[2024-02-18] MEDS: PROTONIX IV 40 MG IV ×2 (09:42→21:29)
[2024-02-18] MEDS: NSS (PRESERVATIVE FREE) 10 ML IV ×2 (09:42→21:30)
[2024-02-18] MEDS: LIORESAL 10 MG PO ×3 (09:43→23:46)
[2024-02-18] MEDS: CLARITIN 10 MG PO (09:43)
[2024-02-18] MEDS: ROXICODONE 20 MG PO ×4 (09:43→23:48)
[2024-02-18] MEDS: VITAMIN D3 (cholecalciferol) 50 MCG PO (09:43)
[2024-02-18] MEDS: ELIQUIS 5 MG PO ×2 (09:43→21:27)
[2024-02-18] MEDS: LYRICA 200 MG PO ×3 (09:43→23:48)
[2024-02-18] MEDS: SENOKOT-S 1 TABLET PO ×2 (09:43→21:28)
[2024-02-18] MEDS: MIRALAX 17 GRAMS PO ×2 (09:44→21:28)
[2024-02-18] MEDS: MS CONTIN (EXTENDED RELEASE) 60 MG PO ×2 (09:44→21:28)
[2024-02-18] MEDS: DESENEX/MITRAZOL/ZEASORB 1 APPLIC TOPICAL ×2 (09:55→21:28)
[2024-02-18] MEDS: ZADITOR OPHTH ×2 (09:56→21:47)
--- NOTE | 2024-02-18 11:08 | VATNOTE ---
Contacted by lab for lab draw from midline. Informed lab that pt has not had blood return from midline in days. Lab states that order is written that blood is only to be drawn through midline. Attempted blood draw through midline at this time, but
there continues to be no blood return from midline. Manipulated pt's arm in various directions to try to get blood return. Redressed pt's midline and retracted midline 1 cm for a total external catheter length of 2 cm at this time to try to obtain
blood return without success. Cap changed on midline at this time unsuccessfully. Lab notified that blood draw was unsuccessful.
--- NOTE | 2024-02-18 11:33 | VATNOTE ---
MD notified of unsuccessful blood draw. Instructed to hold blood draw for now, MD to discuss with patient.
[2024-02-18] MEDS: DULCOLAX 10 MG RECTAL (12:23)
[2024-02-18 15:00] VITALS: BP 129/76
--- NOTE | 2024-02-18 18:00 | PTCARENOTE ---
call terry within reach. pt [id number].
--- NOTE | 2024-02-18 18:06 | PTCARENOTE ---
patient refused to be cleaned and changed. multiples attempts made by this RN and tech. pt states ' I will let you know when I need to be changed'.
[2024-02-18] MEDS: LIPITOR 40 MG PO (23:45)
[2024-02-18 23:48] VITALS: BP 112/65
[2024-02-18] MEDS: ELAVIL 25 MG PO (23:48)
[2024-02-18] MEDS: MELATONIN 3 MG PO (23:48)
[2024-02-19] MEDS: REFRESH EYE DROPS (PF) 1 DROPS OPHTH ×5 (01:26→20:45)
[2024-02-19] MEDS: ATIVAN 1 MG PO ×4 (01:26→16:34)
--- NOTE | 2024-02-19 06:40 | W.PN.HOSP.TC ---
Today's Communication/Plan
-
cont bowel regimen
monitor bowel movements
pain control, taper prn dilaudid as tolerated
discharge planning SNF
Assessment / Plan
Assessment / Plan
48-year-old female senior care resident with a past medical history of cerebellar stroke with residual left-sided hemiparesis, DVT/PE on Eliquis, obesity status post gastric bypass surgery, peptic ulcer disease with remote perforation requiring
surgical repair, spinal cord cancer status post surgery, chronic back pain on chronic opioids, and opioid induced constipation presents with intractable vomiting, found to have coffee-ground emesis. Patient was recently admitted at [facility] 01/30/24- 02/06/24 for coffee-ground emesis, EGD on 02/01/[address] Mckinney shows grade D reflux esophagitis with no bleeding. She states that after discharge from [facility] 5 days ago, her coffee-ground emesis did improve. However
it returned this morning, and has been quite severe. Patient reports lightheadedness and dizziness. She also has substernal chest pain from the vomiting and esophagitis. She does have some mild epigastric pain as well. She has chronic back pain
from her spinal cord cancer status post surgery. She denies fever. No black or bloody stools.
#Recurrent coffee-ground emesis
#Grade D esophagitis seen on EGD on 02/01/2024
GI consult appreciated, Protonix 40 mg IV twice daily, carafate 1 gm ACHS
Diet advanced low residue low fat as per GI
H&H stable trended up
Cleared to resume home anticoagulation as per GI
Eliquis since resumed, cont
#Likely opiate induced Constipation
bowel regimen prn Enema as per GI
despite large bowel movement following Enema
Follow up Abd XR notes large amount of fecal material throughout colon mildly progressed
Enema repeated with milk and molasses 02/15 subsequent good response
repeat Abd XR 02/17 AM noted some improvement in constipation.
02/17 bisacodyl once attempted
Morning nausea past few days suspect d/t severe constipation vs side effect prn dilaudid taken in morning (discussed with patient who wants to cont with prn Dilaudid but also reports she will avoid taking in morning)
02/18 Bowel movements noted overnight/morning. Nausea free this morning without dilaudid
#Subacute blood loss anemia versus dilution
H&H stable trended up
#Profound hypomagnesemia likely d/t GI losses/vomiting since resolved
Repleted and resolved
#Hypokalemia
Repleted and resolved
#Reported history of diabetes
Non-diabetic at this time
Recent A1c's non-diabetic range, no recent blood transfusions
Repeat A1c in 3 months with primary care recommended
#Chronic pain syndrome
#Chronic back pain
#Chronic opioid use likely dependence
She is on morphine ER 60 mg every 12 hours, oxycodone 20 mg 4 times daily at home, Lyrica 200 mg 3 times a day
IV Dilaudid prn converted to PO, tapered to q8hprn
Patient reports unable to receive Tylenol due to episode gastric ulcer perforation repair [facility]
Reports that she was instructed never to take Tylenol during that hospitalization
Patient aware she there is Tylenol in home medication Fioricet and reports tolerating well
[facility] records requested
#History of PE/DVT
cont Eliquis
#Opioid-induced constipation
Continue MiraLAX twice a day, sennosides twice a day
#History of cerebellar stroke with left-sided hemiparesis
Patient has been bedbound for the last 7 years
She resides at [facility]
#Anxiety/depression
Continue Ativan 1 mg every 6 hours, amitriptyline
#Persistent intermittent cough, patient reports occasionally 'gurgling'
Previous Obstruction Series XR had noted possible mild right upper lobe pna possible artifact
Notably patient had recently completed a course of abx for aspiration pneumonia last recent hospitalization here
02/14 CXR also notes right-sided pna but again possible artifact
no white count elevation, afebrile, stable respiratory status on room air.
will cont to monitor off abx at this time, outpt CT recommended
#Clear Discharge Left Ear
ENT eval appreciated no infection/bleeding noted, no therapy recommended
DVT prophylaxis�SCDs
Full code
Total time spent to see the patient on the floor, examine the patient, review data and lab results, discuss treatment plan with patient, nursing staff around 50 minutes.
Physical Exam
General: Morbidly obese, no acute distress, chronically debilitated
HEENT: Normocephalic, Atraumatic, EOMI, MMM, clear drainage left ear appreciated
Respiratory: Clear to Auscultation bilaterally
Cardiac: Normal S1/S2, Regular Rate and Rhythm
GI: Soft, Nontender, Nondistended, Normal Bowel Sounds
Extremities: No Clubbing, Cyanosis, or Edema
Neuro: Left-sided hemiparesis baseline
Psych: Calm, Cooperative
Anticipated Discharge: 24 - 48 hours
Subjective/Interval History
-
Date of Service: February 19, 2024
Patient had bowel movements overnight and morning. No nausea this morning (patient also did not have Dilaudid this morning).
Objective Data
-
Vital Signs:
Vital Signs
Temp Pulse Resp BP Pulse Ox
99.1 F 81 17 112/65 99
02/18/24 23:48 02/18/24 23:48 02/18/24 23:48 02/18/24 23:48 02/19/24 02:43
I&O
02/17/24 02/18/24 02/19/24
06:59 06:59 06:59
Intake Total 2220 / 2220 1000 / 1000 1040 / 1040
Output Total 500 / 500
Balance 2220 / 2220 500 / 500 1040 / 1040
[2024-02-19 08:02] VITALS: BP 124/73
[2024-02-19] MEDS: LYRICA 200 MG PO ×3 (09:45→22:50)
[2024-02-19] MEDS: MS CONTIN (EXTENDED RELEASE) 60 MG PO ×2 (09:45→20:42)
[2024-02-19] MEDS: VITAMIN D3 (cholecalciferol) 50 MCG PO (09:45)
[2024-02-19] MEDS: ROXICODONE 20 MG PO ×3 (09:45→22:51)
[2024-02-19] MEDS: ELIQUIS 5 MG PO ×2 (09:46→20:41)
[2024-02-19] MEDS: CARAFATE 1 GRAM PO ×4 (09:46→22:50)
[2024-02-19] MEDS: CLARITIN 10 MG PO (09:46)
[2024-02-19] MEDS: LIORESAL 10 MG PO ×3 (09:46→22:50)
[2024-02-19] MEDS: SENOKOT-S 1 TABLET PO ×2 (09:46→20:46)
[2024-02-19] MEDS: MIRALAX 17 GRAMS PO ×2 (09:47→20:38)
[2024-02-19] MEDS: DESENEX/MITRAZOL/ZEASORB 1 APPLIC TOPICAL ×2 (10:19→20:45)
[2024-02-19] MEDS: NSS (PRESERVATIVE FREE) 10 ML IV ×2 (10:19→20:42)
[2024-02-19] MEDS: PROTONIX IV 40 MG IV ×2 (10:19→20:42)
[2024-02-19] MEDS: ZADITOR OPHTH ×2 (10:20→20:46)
--- NOTE | 2024-02-19 11:21 | PTCARENOTE ---
Patient continues to dictate her care, argumentative/hostile with staff/ refuses to be repositioned or changed; saying ' just give me my pain pills and go away, I will let call you when I need to be cleaned up'. Dr Bruce made aware of patient's
behavior.
[2024-02-19] MEDS: FIORICET 1 TAB PO (12:25)
[2024-02-19] MEDS: DILAUDID 2 MG PO ×2 (12:25→20:46)
[2024-02-19] MEDS: REFRESH EYE DROPS (PF) OPHTH (12:36)
[2024-02-19] MEDS: ROXICODONE PO (12:39)
[2024-02-19 16:08] VITALS: BP 128/83
[2024-02-19] MEDS: ZOFRAN 4 MG IV (20:59)
[2024-02-19] MEDS: LIPITOR 40 MG PO (22:50)
[2024-02-19] MEDS: MELATONIN 3 MG PO (22:51)
[2024-02-19] MEDS: ELAVIL 25 MG PO (22:51)
[2024-02-19 23:09] VITALS: BP 130/80
--- NOTE | 2024-02-19 23:15 | PTCARENOTE ---
Pt on the call terry during rounds at shift change requesting PRN Dilaudid for 10/10 back and LLE pain. Explained, at the time, pt was not due for another ~20 minutes but offered to bring PRN in with 1999 medication regimen. Upon assessment and 1999
med pass, pt also requesting Fioricet and Zofran, stating 'I really just am not doing well today'. PRN Zofran given per request, see DEC. RN suggested holding off on PO medications until Zofran aides with nausea, pt declines requesting PO
medications anyway. Pt tolerated without vomiting. Pt requiring a lot of coaching with her PM dose of Miralax, only taking a few small sips at a time and requiring frequent reinforcement about the importance of Miralax/bowel regimen and her POC. Pt
refusing all methods of hygiene at this time, including refusing to allow staff to change her soiled brief. Personal hygiene/UTI prevention education provided. RN can visually see soiled brief, which pt denies stating 'I'm not wet, I can't pee, I've
been trying to but I can't'. RN explained to pt if she is having difficulty peeing, a bladder scan is warranted to r/o retention to which pt replied 'I don't need that', adamantly refusing bladder scan. Pt repositioned herself on her side with RN in
the room, call terry within reach. POC and importance of patient cooperation to such continues to be reinforced.
[2024-02-20] MEDS: ATIVAN 1 MG PO ×4 (00:54→23:17)
[2024-02-20] MEDS: REFRESH EYE DROPS (PF) 1 DROPS OPHTH ×4 (00:55→23:19)
[2024-02-20] MEDS: FIORICET 1 TAB PO (01:25)
--- NOTE | 2024-02-20 01:39 | PTCARENOTE ---
Pt vomited ~200cc brown colored, foul smelling vomit into basin, on her person, down the side of the bed and onto the floor despite previous Zofran administration. No pill fragments noted in pt's vomit, Pt agreeable to complete bed bath with full
linen change. Bed bath provided with warm water and soap, Desenex applied to folds per order. Clean bed sheets/pillow case provided, clean attends placed on pt. Pt had completed 1/4 of her Miralax dose, refusing to drink anymore. Pt reports she
feels much better after vomiting, asking for her 0000 dose of Ativan and PRN Fioricet, given as requested, see MAR. Warm blanket and call terry provided for pt, lights dimmed per request, pt resting comfortably at this time.
[2024-02-20] MEDS: REFRESH EYE DROPS (PF) OPHTH ×3 (04:21→17:57)
[2024-02-20] MEDS: ATIVAN PO (06:38)
[2024-02-20 07:10] VITALS: BP 118/75
--- NOTE | 2024-02-20 08:22 | W.PN.HOSP.TC ---
Today's Communication/Plan
-
Hopeful for discharge tomorrow if no vomiting today
Assessment / Plan
Assessment / Plan
48-year-old female intermediate resident with a past medical history of cerebellar stroke with residual left-sided hemiparesis, DVT/PE on Eliquis, obesity status post gastric bypass surgery, peptic ulcer disease with remote perforation requiring
surgical repair, spinal cord cancer status post surgery, chronic back pain on chronic opioids, and opioid induced constipation presents with intractable vomiting, found to have coffee-ground emesis. Patient was recently admitted at [facility] 01/30/24- 02/06/24 for coffee-ground emesis, EGD on 02/01/[address] Mckinney shows grade D reflux esophagitis with no bleeding. She states that after discharge from [facility] 5 days ago, her coffee-ground emesis did improve. However
it returned this morning, and has been quite severe. Patient reports lightheadedness and dizziness. She also has substernal chest pain from the vomiting and esophagitis. She does have some mild epigastric pain as well. She has chronic back pain
from her spinal cord cancer status post surgery. She denies fever. No black or bloody stools.
#Recurrent coffee-ground emesis
#Grade D esophagitis seen on EGD on 02/01/2024
GI consult appreciated, Protonix 40 mg IV twice daily, carafate 1 gm ACHS
Diet advanced low residue low fat as per GI
H&H stable trended up, cleared by GI to resume Eliquis 02/11
5/, continues to have intermittent coffee-ground emesis, continue to monitor
#Likely opiate induced Constipation
bowel regimen prn Enema as per GI
despite large bowel movement following Enema
Follow up Abd XR notes large amount of fecal material throughout colon mildly progressed
Enema repeated with milk and molasses 02/15 subsequent good response
repeat Abd XR 02/17 AM noted some improvement in constipation.
02/17 bisacodyl once attempted
Morning nausea past few days suspect d/t severe constipation vs side effect prn dilaudid taken in morning (discussed with patient who wants to cont with prn Dilaudid but also reports she will avoid taking in morning)
02/18 Bowel movements noted overnight/morning. Nausea free this morning without dilaudid
#Subacute blood loss anemia versus dilution
H&H stable trended up
#Profound hypomagnesemia likely d/t GI losses/vomiting since resolved
Repleted and resolved
#Hypokalemia
Repleted and resolved
#Reported history of diabetes
Non-diabetic at this time
Recent A1c's non-diabetic range, no recent blood transfusions
Repeat A1c in 3 months with primary care recommended
#Chronic pain syndrome
#Chronic back pain
#Chronic opioid use likely dependence
She is on morphine ER 60 mg every 12 hours, oxycodone 20 mg 4 times daily at home, Lyrica 200 mg 3 times a day
IV Dilaudid prn converted to PO, tapered to q8hprn
Patient reports unable to receive Tylenol due to episode gastric ulcer perforation [facility]
Reports that she was instructed never to take Tylenol during that hospitalization
Patient aware she there is Tylenol in home medication Fioricet and reports tolerating well
[facility] records requested
#History of PE/DVT
cont Eliquis
#Opioid-induced constipation
Continue MiraLAX twice a day, sennosides twice a day
#History of cerebellar stroke with left-sided hemiparesis
Patient has been bedbound for the last 7 years
She resides at [facility]
#Anxiety/depression
Continue Ativan 1 mg every 6 hours, amitriptyline
#Persistent intermittent cough, patient reports occasionally 'gurgling'
Previous Obstruction Series XR had noted possible mild right upper lobe pna possible artifact
Notably patient had recently completed a course of abx for aspiration pneumonia last recent hospitalization here
02/14 CXR also notes right-sided pna but again possible artifact
no white count elevation, afebrile, stable respiratory status on room air.
will cont to monitor off abx at this time, outpt CT recommended
#Clear Discharge Left Ear
ENT eval appreciated no infection/bleeding noted, no therapy recommended
DVT prophylaxis�eliquis
Full code
Total time spent to see the patient on the floor, examine the patient, review data and lab results, discuss treatment plan with patient, nursing staff around 35 minutes.
Physical Exam
General: Morbidly obese, no acute distress, chronically debilitated
HEENT: Normocephalic, Atraumatic, EOMI, MMM, clear drainage left ear appreciated
Respiratory: Clear to Auscultation bilaterally
Cardiac: Normal S1/S2, Regular Rate and Rhythm
GI: Soft, Nontender, Nondistended, Normal Bowel Sounds
Extremities: No Clubbing, Cyanosis, or Edema
Neuro: Left-sided hemiparesis baseline
Psych: Calm, Cooperative
Anticipated Discharge: Within 24 hours
Subjective/Interval History
-
Date of Service: February 20, 2024
Patient reports vomiting last night, a mixture of gastric contents with coffee-ground emesis. She is nauseated this morning. She is waiting for her breakfast. No fever, no chills.
Objective Data
-
Vital Signs:
Vital Signs
Temp Pulse Resp BP Pulse Ox
97.7 F 83 18 130/80 99
02/19/24 23:09 02/19/24 23:09 02/19/24 23:09 02/19/24 23:09 02/20/24 00:45
I&O
02/19/24 02/20/24 02/21/24
06:59 06:59 06:59
Intake Total 1040 / 1040 960 / 960
Output Total 200 / 200
Balance 1040 / 1040 760 / 760
[2024-02-20] MEDS: MIRALAX PO ×2 (09:38→15:39)
[2024-02-20] MEDS: VITAMIN D3 (cholecalciferol) PO ×2 (09:38→15:40)
[2024-02-20] MEDS: ROXICODONE PO ×3 (09:38→15:39)
[2024-02-20] MEDS: CLARITIN PO ×2 (09:38→15:39)
[2024-02-20] MEDS: MS CONTIN (EXTENDED RELEASE) PO ×4 (09:38→21:42)
[2024-02-20] MEDS: NSS (PRESERVATIVE FREE) 10 ML IV ×2 (09:39→21:23)
[2024-02-20] MEDS: SENOKOT-S PO ×2 (09:39→15:40)
[2024-02-20] MEDS: ELIQUIS PO ×2 (09:40→15:39)
[2024-02-20] MEDS: LYRICA 200 MG PO ×2 (09:40→23:18)
[2024-02-20] MEDS: PROTONIX IV 40 MG IV ×2 (09:40→21:23)
[2024-02-20] MEDS: CARAFATE PO ×4 (09:41→17:58)
[2024-02-20] MEDS: LIORESAL PO ×3 (09:41→17:56)
[2024-02-20] MEDS: ZADITOR OPHTH ×3 (09:42→21:29)
[2024-02-20] MEDS: DESENEX/MITRAZOL/ZEASORB 1 APPLIC TOPICAL ×2 (09:43→21:33)
[2024-02-20] MEDS: ZOFRAN 4 MG IV (14:55)
[2024-02-20] MEDS: DILAUDID 1 MG IV (14:55)
[2024-02-20 15:10] VITALS: BP 120/73
--- NOTE | 2024-02-20 15:46 | PTCARENOTE ---
Patient had very little appetite today, slept through breakfast and not able to eat lunch despite ordering a meal. After being awake and requesting her morning medications, patient threw up brown substance along with undigested pills. updated. IV
Zofran and IV Dilaudid ordered and administered.
--- NOTE | 2024-02-20 15:47 | CM ---
Anticipate discharge on 02/21/24 if no further vomiting. Discharge Plan of care: Return to [facility] for resumption of LTC.
[2024-02-20] MEDS: COMPAZINE 10 MG IV (16:33)
[2024-02-20] MEDS: ROXICODONE 20 MG PO ×2 (16:33→21:42)
[2024-02-20] MEDS: LYRICA PO (17:57)
[2024-02-20] MEDS: ELIQUIS 5 MG PO (21:23)
[2024-02-20] MEDS: MIRALAX 17 GRAMS PO (21:24)
[2024-02-20] MEDS: CARAFATE 1 GRAM PO (21:29)
[2024-02-20] MEDS: SENOKOT-S 1 TABLET PO (21:29)
[2024-02-20] MEDS: ELAVIL 25 MG PO (21:32)
[2024-02-20] MEDS: LIPITOR 40 MG PO (23:18)
[2024-02-20] MEDS: MELATONIN 3 MG PO (23:19)
[2024-02-20] MEDS: LIORESAL 10 MG PO (23:19)
[2024-02-20 23:29] VITALS: BP 114/60
[2024-02-21] MEDS: DILAUDID 2 MG PO ×2 (01:24→15:20)
[2024-02-21] MEDS: REFRESH EYE DROPS (PF) OPHTH ×4 (05:16→17:55)
[2024-02-21] MEDS: ATIVAN 1 MG PO ×3 (05:49→17:57)
--- NOTE | 2024-02-21 06:33 | PTCARENOTE ---
Pt without any urine output all shift. Attempted to bladder scan patient, patient refusing bladder scan. Pt states she doesn't feel like she has to urinate, denies a previous hx of urinary retention. Pt reports 'I didn't drink anything last night, I
don't need that'. Risks of urinary retention reviewed with patient, as well as, education on increased risk for UTI. Patient expresses her understanding of this teaching, continues to refuse bladder scan at this time.
[2024-02-21 07:05] VITALS: BP 107/57
[2024-02-21 07:06] LABS: Hematocrit 30.6 % (37.0-47.0); Hemoglobin 9.9 g/dL (12.0-16.0); Mean Corp Hgb Conc. 32.4 g/dL (33.0-37.0); Mean Corpuscular Hgb 27.4 pg (27.0-31.0); Mean Corpuscular Volume 84.8 fL (81.0-99.0); Mean Platelet Volume 10.8 fL (7.4-10.4); Platelet Count 278 10^3/uL (130-400); Red Blood Cell Count 3.61 10^6/uL (4.20-5.40); Red Cell Dist. Width 14.4 % (11.5-14.5); White Blood Cell Count 5.4 10^3/uL (4.8-10.8)
--- NOTE | 2024-02-21 07:07 | W.PN.HOSP.TC ---
Today's Communication/Plan
-
see bold
Assessment / Plan
Assessment / Plan
48-year-old female care home resident with a past medical history of cerebellar stroke with residual left-sided hemiparesis, DVT/PE on Eliquis, obesity status post gastric bypass surgery, peptic ulcer disease with remote perforation requiring
surgical repair, spinal cord cancer status post surgery, chronic back pain on chronic opioids, and opioid induced constipation presents with intractable vomiting, found to have coffee-ground emesis. Patient was recently admitted at [place]
[facility] 01/30/24- 02/06/24 for coffee-ground emesis, EGD on 02/01/[address] Mckinney shows grade D reflux esophagitis with no bleeding. She states that after discharge from [facility] 5 days ago, her coffee-ground emesis did improve. However
it returned this morning, and has been quite severe. Patient reports lightheadedness and dizziness. She also has substernal chest pain from the vomiting and esophagitis. She does have some mild epigastric pain as well. She has chronic back pain
from her spinal cord cancer status post surgery. She denies fever. No black or bloody stools.
#Recurrent coffee-ground emesis
#Grade D esophagitis seen on EGD on 02/01/2024
GI consult appreciated, continue Protonix 40 mg IV twice daily, carafate 1 gm ACHS
Diet advanced low residue low fat as per GI, changed to 6 small meals
H&H stable, cleared by GI to resume Eliquis 02/11
02/20, continues to have intermittent coffee-ground emesis, continue to monitor
#Recurrent vomiting
#Likely opiate induced Constipation
#Delayed gastric emptying
Multifactorial, due to immobility, opioid-induced constipation, history of gastric bypass
Diet changed to 6 small meals
Continue enemas, Dulcolax suppository, add Reglan ACHS
#Subacute blood loss anemia versus dilution
H&H stable
#Profound hypomagnesemia likely d/t GI losses/vomiting since resolved
Repleted and resolved
#Hypokalemia
Repleted and resolved
#Reported history of diabetes
Non-diabetic at this time
Recent A1c's non-diabetic range, no recent blood transfusions
Repeat A1c in 3 months with primary care recommended
#Chronic pain syndrome
#Chronic back pain
#Chronic opioid use likely dependence
She is on morphine ER 60 mg every 12 hours, oxycodone 20 mg 4 times daily at home, Lyrica 200 mg 3 times a day
IV Dilaudid prn converted to PO, tapered to q8hprn
Patient reports unable to receive Tylenol due to episode gastric ulcer perforation repair [place]
Reports that she was instructed never to take Tylenol during that hospitalization
Patient aware she there is Tylenol in home medication Fioricet and reports tolerating well
[place] records requested
#History of PE/DVT
cont Eliquis
#Opioid-induced constipation
Continue MiraLAX twice a day, sennosides twice a day
#History of cerebellar stroke with left-sided hemiparesis
Patient has been bedbound for the last 7 years
She resides at [facility]
#Anxiety/depression
Continue Ativan 1 mg every 6 hours, amitriptyline
#Persistent intermittent cough, patient reports occasionally 'gurgling'
Previous Obstruction Series XR had noted possible mild right upper lobe pna possible artifact
Notably patient had recently completed a course of abx for aspiration pneumonia last recent hospitalization here
02/14 CXR also notes right-sided pna but again possible artifact
no white count elevation, afebrile, stable respiratory status on room air.
will cont to monitor off abx at this time, outpt CT recommended
#Clear Discharge Left Ear
ENT eval appreciated no infection/bleeding noted, no therapy recommended
DVT prophylaxis�eliquis
Full code
Total time spent to see the patient on the floor, examine the patient, review data and lab results, discuss treatment plan with patient, nursing staff around 35 minutes.
Physical Exam
General: Morbidly obese, no acute distress, chronically debilitated
HEENT: Normocephalic, Atraumatic, EOMI, MMM, clear drainage left ear appreciated
Respiratory: Clear to Auscultation bilaterally
Cardiac: Normal S1/S2, Regular Rate and Rhythm
GI: Soft, Nontender, Nondistended, Normal Bowel Sounds
Extremities: No Clubbing, Cyanosis, or Edema
Neuro: Left-sided hemiparesis baseline
Psych: Calm, Cooperative
Anticipated Discharge: Within 24 hours
Subjective/Interval History
-
Date of Service: February 21, 2024
Patient vomited yesterday afternoon. She had a bowel movement yesterday afternoon. She is having very little oral intake. No fever.
Objective Data
-
Labs:
Laboratory Results
02/21/24
05:43
WBC Pending
Hgb Pending
Hct Pending
Plt Count Pending
Sodium Pending
Potassium Pending
Chloride Pending
Carbon Dioxide Pending
BUN Pending
Creatinine Pending
Glucose Pending
Calcium Pending
Vital Signs:
Vital Signs
Temp Pulse Resp BP Pulse Ox
97.8 F 75 18 114/60 94
02/20/24 23:29 02/20/24 23:29 02/20/24 23:29 02/20/24 23:29 02/20/24 23:29
I&O
02/20/24 02/21/24 02/22/24
06:59 06:59 06:59
Intake Total 960 / 960 2320 / 2320
Output Total 200 / 200 500 / 500
Balance 760 / 760 1820 / 1820
[2024-02-21 07:24] LABS: Blood Urea Nitrogen 9 mg/dl (7-17); Calcium 8.1 mg/dl (8.4-10.2); Carbon Dioxide 27 mmol/L (22-30); Chloride 102 mmol/L (98-107); Estimated Creatinine Clearance > 125 ml/min; Glucose 93 mg/dl (70-99); Magnesium 1.8 mg/dl (1.6-2.3); Phosphorus 3.4 mg/dl (2.5-4.5); Potassium 3.6 mmol/L (3.5-5.1); Sodium 134 mmol/L (135-145); eGFR > 60.00
[2024-02-21] MEDS: SENOKOT-S 1 TABLET PO (09:19)
[2024-02-21] MEDS: ELIQUIS 5 MG PO ×2 (09:19→20:26)
[2024-02-21] MEDS: LIORESAL 10 MG PO ×3 (09:20→21:52)
[2024-02-21] MEDS: PROTONIX IV 40 MG IV ×2 (09:20→20:28)
[2024-02-21] MEDS: NSS (PRESERVATIVE FREE) 10 ML IV ×2 (09:20→20:28)
[2024-02-21] MEDS: MIRALAX 17 GRAMS PO ×2 (09:20→20:28)
[2024-02-21] MEDS: ROXICODONE 20 MG PO ×4 (09:20→21:50)
[2024-02-21] MEDS: CARAFATE PO ×2 (10:26→12:26)
[2024-02-21] MEDS: DESENEX/MITRAZOL/ZEASORB TOPICAL (10:26)
[2024-02-21] MEDS: CLARITIN PO (10:26)
[2024-02-21] MEDS: MS CONTIN (EXTENDED RELEASE) PO (10:27)
[2024-02-21] MEDS: LYRICA PO (10:27)
[2024-02-21] MEDS: VITAMIN D3 (cholecalciferol) PO (10:28)
[2024-02-21] MEDS: ZADITOR OPHTH ×2 (10:28→20:30)
[2024-02-21] MEDS: DULCOLAX 10 MG RECTAL (12:26)
[2024-02-21 15:00] VITALS: BP 119/67
--- NOTE | 2024-02-21 15:14 | CM ---
Continues with intermittent coffee ground emesis. Discharge Plan of Care remains return to [facility] for resumption of LTC.
[2024-02-21] MEDS: LYRICA 200 MG PO ×2 (15:20→21:51)
[2024-02-21] MEDS: REGLAN 10 MG PO ×3 (15:20→21:50)
[2024-02-21 16:29] LABS: Urine Albumin Trace (Neg - Trace); Urine Bilirubin 1+ (Negative); Urine Character Clear (Clear); Urine Color Yellow; Urine Glucose Negative (Negative); Urine Ketone 1+ (Negative); Urine Leukocyte Trace (Negative); Urine Nitrite Negative (Negative); Urine Occult Blood Negative (Negative); Urine Specific Gravity 1.015 (<1.030); Urine Urobilinogen 3+ (Neg - 1+)
[2024-02-21 16:35] LABS: Urine Red Blood Cell None Seen /HPF (0-2)
[2024-02-21] MEDS: CARAFATE 1 GRAM PO ×2 (17:57→21:49)
[2024-02-21] MEDS: DESENEX/MITRAZOL/ZEASORB 1 APPLIC TOPICAL (20:27)
[2024-02-21] MEDS: REFRESH EYE DROPS (PF) 1 DROPS OPHTH (20:28)
[2024-02-21] MEDS: MS CONTIN (EXTENDED RELEASE) 60 MG PO (20:28)
[2024-02-21] MEDS: SENOKOT-S 2 TABLET PO (20:29)
[2024-02-21] MEDS: FIORICET 1 TAB PO (21:49)
[2024-02-21] MEDS: MELATONIN 3 MG PO (21:51)
[2024-02-21] MEDS: ELAVIL 25 MG PO (21:51)
[2024-02-21] MEDS: LIPITOR 40 MG PO (21:52)
[2024-02-21 23:08] VITALS: BP 122/65
[2024-02-22] MEDS: REFRESH EYE DROPS (PF) 1 DROPS OPHTH ×6 (00:19→23:59)
[2024-02-22] MEDS: ATIVAN 1 MG PO ×5 (00:19→23:59)
[2024-02-22] MEDS: DILAUDID 2 MG PO ×2 (03:03→14:16)
[2024-02-22] MEDS: REFRESH EYE DROPS (PF) OPHTH (03:04)
--- NOTE | 2024-02-22 03:30 | PTCARENOTE ---
Pt without complaints of nausea throughout the night. Urinating appropriately and alerting/allowing staff to tend to hygiene needs. Pt with large bowel movement today s/p suppository. Pt states she is hungry, looking forward to breakfast, requesting
saltines to snack on. Saltines and warm blanket provided to patient, resting comfortably in bed, call terry on pt's side table within reach.
[2024-02-22 08:00] VITALS: BP 125/81
--- NOTE | 2024-02-22 08:17 | W.PN.HOSP.TC ---
Today's Communication/Plan
-
Increase laxatives
Encourage oral intake
Monitor today, hopeful for discharge tomorrow
Assessment / Plan
Assessment / Plan
48-year-old female [facility] resident with a past medical history of cerebellar stroke with residual left-sided hemiparesis, DVT/PE on Eliquis, obesity status post gastric bypass surgery, peptic ulcer disease with remote perforation requiring
surgical repair, spinal cord cancer status post surgery, chronic back pain on chronic opioids, and opioid induced constipation presents with intractable vomiting, found to have coffee-ground emesis. Patient was recently admitted at [place]
[facility] 01/30/24- 02/06/24 for coffee-ground emesis, EGD on 02/01/[address] Mckinney shows grade D reflux esophagitis with no bleeding. She states that after discharge from [facility] 5 days ago, her coffee-ground emesis did improve. However
it returned this morning, and has been quite severe. Patient reports lightheadedness and dizziness. She also has substernal chest pain from the vomiting and esophagitis. She does have some mild epigastric pain as well. She has chronic back pain
from her spinal cord cancer status post surgery. She denies fever. No black or bloody stools.
#Recurrent vomiting
#Likely opiate induced Constipation
#Delayed gastric emptying
Multifactorial, due to immobility, opioid-induced constipation, history of gastric bypass
Diet changed to 6 small meals
Continue miralax bid, sennasides bid, Dulcolax suppository daily, add lactulose tid 02/22/24
Added Reglan ACHS 02/21/24
#Acute urinary retention
Required straight cath once on 02/20
Patient now voiding
Due to constipation, treat as above
#Recurrent coffee-ground emesis
#Grade D esophagitis seen on EGD on 02/01/2024
GI consult appreciated, continue Protonix 40 mg IV twice daily, carafate 1 gm ACHS
Diet advanced low residue low fat as per GI, changed to 6 small meals
H&H stable, cleared by GI to resume Eliquis 02/11
#Subacute blood loss anemia versus dilution
H&H stable
#Profound hypomagnesemia likely d/t GI losses/vomiting since resolved
Repleted and resolved
#Hypokalemia
Repleted and resolved
#Reported history of diabetes
Non-diabetic at this time
Recent A1c's non-diabetic range, no recent blood transfusions
Repeat A1c in 3 months with primary care recommended
#Chronic pain syndrome
#Chronic back pain
#Chronic opioid use likely dependence
She is on morphine ER 60 mg every 12 hours, oxycodone 20 mg 4 times daily at home, Lyrica 200 mg 3 times a day
IV Dilaudid prn converted to PO, tapered to q8hprn
Patient reports unable to receive Tylenol due to episode gastric ulcer perforation repair [facility]
Reports that she was instructed never to take Tylenol during that hospitalization
Patient aware she there is Tylenol in home medication Fioricet and reports tolerating well
[place] records requested
#History of PE/DVT
cont Eliquis
#Opioid-induced constipation
Continue MiraLAX twice a day, sennosides twice a day
#History of cerebellar stroke with left-sided hemiparesis
Patient has been bedbound for the last 7 years
She resides at [facility]
#Anxiety/depression
Continue Ativan 1 mg every 6 hours, amitriptyline
#Persistent intermittent cough, patient reports occasionally 'gurgling'
Previous Obstruction Series XR had noted possible mild right upper lobe pna possible artifact
Notably patient had recently completed a course of abx for aspiration pneumonia last recent hospitalization here
02/14 CXR also notes right-sided pna but again possible artifact
no white count elevation, afebrile, stable respiratory status on room air.
will cont to monitor off abx at this time, outpt CT recommended
#Clear Discharge Left Ear
ENT eval appreciated no infection/bleeding noted, no therapy recommended
DVT prophylaxis�eliquis
Full code
Total time spent to see the patient on the floor, examine the patient, review data and lab results, discuss treatment plan with patient, nursing staff around 50 minutes.
Physical Exam
General: Morbidly obese, no acute distress, chronically debilitated
HEENT: Normocephalic, Atraumatic, EOMI, MMM, clear drainage left ear appreciated
Respiratory: Clear to Auscultation bilaterally
Cardiac: Normal S1/S2, Regular Rate and Rhythm
GI: Soft, Nontender, Nondistended, Normal Bowel Sounds
Extremities: No Clubbing, Cyanosis, or Edema
Neuro: Left-sided hemiparesis baseline
Psych: Calm, Cooperative
Anticipated Discharge: Within 24 hours
Subjective/Interval History
-
Date of Service: February 22, 2024
Patient was able to void last night. She is having bowel movements. No vomiting, she continues to have poor oral intake though. No fever.
Objective Data
-
Vital Signs:
Vital Signs
Temp Pulse Resp BP Pulse Ox
98.3 F 70 18 122/65 94
02/21/24 23:08 02/21/24 23:08 02/21/24 23:08 02/21/24 23:08 02/21/24 23:32
I&O
02/21/24 02/22/24 02/23/24
06:59 06:59 06:59
Intake Total 2320 / 2320 1979 / 1979
Output Total 500 / 500 420 / 420
Balance 1820 / 1820 1560 / 1560
[2024-02-22] MEDS: ROXICODONE 20 MG PO ×4 (08:58→22:18)
[2024-02-22] MEDS: REGLAN 10 MG PO ×4 (08:58→22:18)
[2024-02-22] MEDS: NSS (PRESERVATIVE FREE) 10 ML IV ×2 (08:58→21:15)
[2024-02-22] MEDS: LYRICA 200 MG PO ×3 (08:58→22:18)
[2024-02-22] MEDS: ELIQUIS 5 MG PO ×2 (08:59→21:13)
[2024-02-22] MEDS: DULCOLAX 10 MG RECTAL (08:59)
[2024-02-22] MEDS: SENOKOT-S 2 TABLET PO ×2 (08:59→21:12)
[2024-02-22] MEDS: LIORESAL 10 MG PO ×3 (08:59→22:18)
[2024-02-22] MEDS: VITAMIN D3 (cholecalciferol) 50 MCG PO (08:59)
[2024-02-22] MEDS: MIRALAX 17 GRAMS PO ×2 (09:00→21:12)
[2024-02-22] MEDS: DESENEX/MITRAZOL/ZEASORB 1 APPLIC TOPICAL (09:00)
[2024-02-22] MEDS: PROTONIX IV 40 MG IV ×2 (09:00→20:35)
[2024-02-22] MEDS: MS CONTIN (EXTENDED RELEASE) 60 MG PO ×2 (09:00→21:13)
[2024-02-22] MEDS: CLARITIN PO (09:02)
[2024-02-22] MEDS: CARAFATE 1 GRAM PO ×4 (09:08→22:17)
[2024-02-22] MEDS: ZADITOR OPHTH ×2 (09:18→21:16)
[2024-02-22] MEDS: FIORICET 1 TAB PO (11:39)
--- NOTE | 2024-02-22 14:59 | CM ---
Anticipate discharge back to [facility] for resumption of LTC on , 02/23/24. [facility] admissions notified.
[2024-02-22 15:34] VITALS: BP 108/60
[2024-02-22] MEDS: DUPHALAC/CHRONULAC 20 GRAMS PO ×2 (15:36→22:17)
[2024-02-22] MEDS: ZOFRAN 4 MG IV (17:34)
[2024-02-22] MEDS: DESENEX/MITRAZOL/ZEASORB TOPICAL (21:13)
[2024-02-22] MEDS: ELAVIL 25 MG PO (22:17)
[2024-02-22] MEDS: MELATONIN 3 MG PO (22:18)
[2024-02-22] MEDS: LIPITOR 40 MG PO (22:18)
[2024-02-22 23:27] VITALS: BP 135/80
[2024-02-23] MEDS: DILAUDID 2 MG PO (03:17)
[2024-02-23] MEDS: REFRESH EYE DROPS (PF) 1 DROPS OPHTH ×5 (03:18→20:53)
[2024-02-23] MEDS: ATIVAN 1 MG PO ×4 (05:52→23:01)
[2024-02-23] MEDS: ZOFRAN 4 MG IV (05:56)
[2024-02-23] MEDS: DESENEX/MITRAZOL/ZEASORB TOPICAL (07:32)
[2024-02-23] MEDS: PROTONIX IV 40 MG IV ×2 (08:40→20:52)
[2024-02-23] MEDS: MIRALAX PO (08:41)
--- NOTE | 2024-02-23 08:42 | W.PN.HOSP.TC ---
Today's Communication/Plan
-
Give meds IV this am
Anti-emetics
Monitor
Assessment / Plan
Assessment / Plan
48-year-old female half-way resident with a past medical history of cerebellar stroke with residual left-sided hemiparesis, DVT/PE on Eliquis, obesity status post gastric bypass surgery, peptic ulcer disease with remote perforation requiring
surgical repair, spinal cord cancer status post surgery, chronic back pain on chronic opioids, and opioid induced constipation presents with intractable vomiting, found to have coffee-ground emesis. Patient was recently admitted at [place]
[facility] 01/30/24- 02/06/24 for coffee-ground emesis, EGD on 02/01/[address] Mckinney shows grade D reflux esophagitis with no bleeding. She states that after discharge from [facility] 5 days ago, her coffee-ground emesis did improve. However
it returned this morning, and has been quite severe. Patient reports lightheadedness and dizziness. She also has substernal chest pain from the vomiting and esophagitis. She does have some mild epigastric pain as well. She has chronic back pain
from her spinal cord cancer status post surgery. She denies fever. No black or bloody stools.
#Recurrent vomiting
#Likely opiate induced Constipation
#Delayed gastric emptying
Multifactorial, due to immobility, opioid-induced constipation, history of gastric bypass
Diet changed to 6 small meals
Continue miralax bid, sennasides bid, Dulcolax suppository daily, add lactulose tid 02/22/24
Added Reglan ACHS 02/21/24
#Acute urinary retention
Required straight cath once on 02/20
Patient now voiding
Due to constipation, treat as above
#Recurrent coffee-ground emesis
#Grade D esophagitis seen on EGD on 02/01/2024
GI consult appreciated, continue Protonix 40 mg IV twice daily, carafate 1 gm ACHS
Diet advanced low residue low fat as per GI, changed to 6 small meals
H&H stable, cleared by GI to resume Eliquis 02/11
#Subacute blood loss anemia versus dilution
H&H stable
#Profound hypomagnesemia likely d/t GI losses/vomiting since resolved
Repleted and resolved
#Hypokalemia
Repleted and resolved
#Reported history of diabetes
Non-diabetic at this time
Recent A1c's non-diabetic range, no recent blood transfusions
Repeat A1c in 3 months with primary care recommended
#Chronic pain syndrome
#Chronic back pain
#Chronic opioid use likely dependence
She is on morphine ER 60 mg every 12 hours, oxycodone 20 mg 4 times daily at home, Lyrica 200 mg 3 times a day
IV Dilaudid prn converted to PO, tapered to q8hprn
Patient reports unable to receive Tylenol due to episode gastric ulcer perforation repair [facility]
Reports that she was instructed never to take Tylenol during that hospitalization
Patient aware she there is Tylenol in home medication Fioricet and reports tolerating well
[place] records requested
#History of PE/DVT
cont Eliquis
#Opioid-induced constipation
Continue MiraLAX twice a day, sennosides twice a day
#History of cerebellar stroke with left-sided hemiparesis
Patient has been bedbound for the last 7 years
She resides at [facility]
#Anxiety/depression
Continue Ativan 1 mg every 6 hours, amitriptyline
#Persistent intermittent cough, patient reports occasionally 'gurgling'
Previous Obstruction Series XR had noted possible mild right upper lobe pna possible artifact
Notably patient had recently completed a course of abx for aspiration pneumonia last recent hospitalization here
02/14 CXR also notes right-sided pna but again possible artifact
no white count elevation, afebrile, stable respiratory status on room air.
will cont to monitor off abx at this time, outpt CT recommended
#Clear Discharge Left Ear
ENT eval appreciated no infection/bleeding noted, no therapy recommended
DVT prophylaxis�eliquis
Full code
Total time spent to see the patient on the floor, examine the patient, review data and lab results, discuss treatment plan with patient, nursing staff around 35 minutes.
Physical Exam
General: Morbidly obese, no acute distress, chronically debilitated
HEENT: Normocephalic, Atraumatic, EOMI, MMM, clear drainage left ear appreciated
Respiratory: Clear to Auscultation bilaterally
Cardiac: Normal S1/S2, Regular Rate and Rhythm
GI: Soft, Nontender, Nondistended, Normal Bowel Sounds
Extremities: No Clubbing, Cyanosis, or Edema
Neuro: Left-sided hemiparesis baseline
Psych: Calm, Cooperative
Anticipated Discharge: Within 24 hours
Subjective/Interval History
-
Date of Service: February 23, 2024
Feels poorly today. Had vomiting this morning. No fever.
Objective Data
-
Vital Signs:
Vital Signs
Temp Pulse Resp BP Pulse Ox
97.9 F 79 18 135/80 96
02/22/24 23:27 02/22/24 23:27 02/22/24 23:27 02/22/24 23:27 02/23/24 00:24
I&O
02/22/24 02/23/24 02/24/24
06:59 06:59 06:59
Intake Total 1980 / 1979 720 / 720
Output Total 420 / 420 240 / 240
Balance 1560 / 1560 480 / 480
[2024-02-23] MEDS: FLUSH (NSS) 2 FLUSH IV (08:44)
[2024-02-23] MEDS: NSS (PRESERVATIVE FREE) 10 ML IV ×2 (08:44→20:52)
[2024-02-23] MEDS: ZADITOR 1 DROP OPHTH (08:45)
[2024-02-23] MEDS: DESENEX/MITRAZOL/ZEASORB 1 APPLIC TOPICAL ×2 (08:46→20:53)
[2024-02-23 09:31] VITALS: BP 136/81
[2024-02-23] MEDS: CARAFATE PO ×2 (11:11→11:32)
[2024-02-23] MEDS: REGLAN PO ×2 (11:11→11:32)
[2024-02-23] MEDS: CLARITIN PO (11:12)
[2024-02-23] MEDS: SENOKOT-S PO (11:12)
[2024-02-23] MEDS: ROXICODONE PO (11:12)
[2024-02-23] MEDS: DUPHALAC/CHRONULAC PO ×4 (11:12→21:54)
[2024-02-23] MEDS: DULCOLAX RECTAL (11:12)
[2024-02-23] MEDS: VITAMIN D3 (cholecalciferol) PO (11:13)
[2024-02-23] MEDS: MS CONTIN (EXTENDED RELEASE) PO (11:17)
[2024-02-23] MEDS: ELIQUIS PO (11:17)
[2024-02-23] MEDS: LIORESAL PO (11:17)
[2024-02-23] MEDS: LYRICA PO (11:17)
[2024-02-23] MEDS: DILAUDID 1 MG IV (11:26)
[2024-02-23] MEDS: PEPCID 20 MG IV (11:27)
[2024-02-23] MEDS: REGLAN 10 MG IV (11:28)
[2024-02-23] MEDS: FLUSH (NSS) 3 FLUSH IV (11:28)
[2024-02-23] MEDS: ROXICODONE 20 MG PO ×3 (14:49→21:47)
[2024-02-23 16:00] VITALS: BP 141/68
--- NOTE | 2024-02-23 16:12 | CM ---
Managing vomiting and constipation. Discharge Plan of Care remains returning to [facility] for resumption of LTC.
[2024-02-23] MEDS: LYRICA 200 MG PO ×2 (17:55→21:47)
[2024-02-23] MEDS: REGLAN 10 MG PO ×2 (17:56→21:44)
[2024-02-23] MEDS: LIORESAL 10 MG PO ×2 (17:56→21:44)
[2024-02-23] MEDS: CARAFATE 1 GRAM PO ×2 (17:56→21:47)
[2024-02-23] MEDS: MS CONTIN (EXTENDED RELEASE) 60 MG PO (20:52)
[2024-02-23] MEDS: ELIQUIS 5 MG PO (20:52)
[2024-02-23] MEDS: MIRALAX 17 GRAMS PO (20:53)
[2024-02-23] MEDS: SENOKOT-S 2 TABLET PO (20:54)
[2024-02-23] MEDS: LIPITOR 40 MG PO (20:54)
[2024-02-23] MEDS: ZADITOR OPHTH (21:43)
[2024-02-23] MEDS: MELATONIN 3 MG PO (21:44)
[2024-02-23] MEDS: ELAVIL 25 MG PO (21:44)
[2024-02-23 23:18] VITALS: BP 113/72
[2024-02-24] MEDS: DILAUDID 2 MG PO ×2 (00:20→14:19)
[2024-02-24] MEDS: REFRESH EYE DROPS (PF) OPHTH ×3 (00:42→14:08)
[2024-02-24] MEDS: ATIVAN 1 MG PO ×3 (05:27→17:10)
[2024-02-24 07:43] VITALS: BP 132/70
[2024-02-24] MEDS: ELIQUIS 5 MG PO (08:47)
[2024-02-24] MEDS: PROTONIX IV 40 MG IV (08:49)
[2024-02-24] MEDS: NSS (PRESERVATIVE FREE) 10 ML IV (08:49)
[2024-02-24] MEDS: FLUSH (NSS) 2 FLUSH IV (08:49)
[2024-02-24] MEDS: CARAFATE 1 GRAM PO ×2 (08:50→11:36)
[2024-02-24] MEDS: LYRICA 200 MG PO ×2 (08:50→15:09)
[2024-02-24] MEDS: MS CONTIN (EXTENDED RELEASE) 60 MG PO (08:50)
[2024-02-24] MEDS: LIORESAL 10 MG PO ×2 (08:50→15:10)
[2024-02-24] MEDS: REGLAN 10 MG PO ×3 (08:50→15:10)
[2024-02-24] MEDS: ROXICODONE 20 MG PO ×3 (08:51→17:09)
[2024-02-24] MEDS: CLARITIN 10 MG PO (08:51)
[2024-02-24] MEDS: SENOKOT-S 2 TABLET PO (08:51)
[2024-02-24] MEDS: REFRESH EYE DROPS (PF) 1 DROPS OPHTH ×2 (08:51→15:08)
[2024-02-24] MEDS: VITAMIN D3 (cholecalciferol) 50 MCG PO (08:51)
[2024-02-24] MEDS: DULCOLAX RECTAL (08:52)
[2024-02-24] MEDS: ZADITOR 1 DROP OPHTH (08:52)
[2024-02-24] MEDS: MIRALAX 17 GRAMS PO (08:52)
[2024-02-24] MEDS: DESENEX/MITRAZOL/ZEASORB 1 APPLIC TOPICAL (08:52)
[2024-02-24] MEDS: DUPHALAC/CHRONULAC PO ×2 (08:52→16:15)
--- NOTE | 2024-02-24 14:37 | CM ---
Patient has been medically cleared for discharge back to [facility] for resumption of LTC. Ambulance transport to be scheduled.
NURSE REPORT # [phone]
FAX # [phone]
[2024-02-24 15:51] VITALS: BP 127/78
--- NOTE | 2024-02-24 16:28 | W.PN.HOSP.TC ---
Addendum entered and electronically signed by Ricki Bustillos MD 03/06/24 08:38:
#Functional quadriplegia
Patient has been bedbound for the last 7 years
Original Note:
Today's Communication/Plan
-
Discharge back to her senior care
Assessment / Plan
Assessment / Plan
48-year-old female senior care resident with a past medical history of cerebellar stroke with residual left-sided hemiparesis, DVT/PE on Eliquis, obesity status post gastric bypass surgery, peptic ulcer disease with remote perforation requiring
surgical repair, spinal cord cancer status post surgery, chronic back pain on chronic opioids, and opioid induced constipation presents with intractable vomiting, found to have coffee-ground emesis. Patient was recently admitted at [place] 01/30/24- 02/06/24 for coffee-ground emesis, EGD on 02/01/[address] Mckinney shows grade D reflux esophagitis with no bleeding. She states that after discharge from [facility] 5 days ago, her coffee-ground emesis did improve. However
it returned this morning, and has been quite severe. Patient reports lightheadedness and dizziness. She also has substernal chest pain from the vomiting and esophagitis. She does have some mild epigastric pain as well. She has chronic back pain
from her spinal cord cancer status post surgery. She denies fever. No black or bloody stools.
#Recurrent vomiting
#Likely opiate induced Constipation
#Delayed gastric emptying
Multifactorial, due to immobility, opioid-induced constipation, history of gastric bypass
Diet changed to 6 small meals
Continue miralax bid, sennasides bid, Dulcolax suppository daily, add lactulose tid 02/22/24
Improved on Reglan 10 mg ACHS
Will discharge back to her senior care today
#Acute urinary retention
Required straight cath once on 02/20
Patient now voiding
Due to constipation, treat as above
#Recurrent coffee-ground emesis
#Grade D esophagitis seen on EGD on 02/01/2024
GI consult appreciated, continue Protonix 40 mg IV twice daily - changed to p.o. upon discharge, carafate 1 gm ACHS
Diet advanced low residue low fat as per GI, changed to 6 small meals
H&H stable, cleared by GI to resume Eliquis 02/11
#Subacute blood loss anemia versus dilution
H&H stable
#Profound hypomagnesemia likely d/t GI losses/vomiting since resolved
Repleted and resolved
#Hypokalemia
Repleted and resolved
#Reported history of diabetes
Non-diabetic at this time
Recent A1c's non-diabetic range, no recent blood transfusions
Repeat A1c in 3 months with primary care recommended
#Chronic pain syndrome
#Chronic back pain
#Chronic opioid use likely dependence
She is on morphine ER 60 mg every 12 hours, oxycodone 20 mg 4 times daily at home, Lyrica 200 mg 3 times a day
IV Dilaudid prn converted to PO, tapered to q8hprn
Patient reports unable to receive Tylenol due to episode gastric ulcer perforation repair [facility]
Reports that she was instructed never to take Tylenol during that hospitalization
Patient aware she there is Tylenol in home medication Fioricet and reports tolerating well
[place] records requested
#History of PE/DVT
cont Eliquis
#Opioid-induced constipation
Continue MiraLAX twice a day, sennosides twice a day
#History of cerebellar stroke with left-sided hemiparesis
Patient has been bedbound for the last 7 years
She resides at [facility]
#Anxiety/depression
Continue Ativan 1 mg every 6 hours, amitriptyline
#Persistent intermittent cough, patient reports occasionally 'gurgling'
Previous Obstruction Series XR had noted possible mild right upper lobe pna possible artifact
Notably patient had recently completed a course of abx for aspiration pneumonia last recent hospitalization here
02/14 CXR also notes right-sided pna but again possible artifact
no white count elevation, afebrile, stable respiratory status on room air.
will cont to monitor off abx at this time, outpt CT recommended
#Clear Discharge Left Ear
ENT eval appreciated no infection/bleeding noted, no therapy recommended
DVT prophylaxis�eliquis
Full code
Physical Exam
General: Morbidly obese, no acute distress, chronically debilitated
HEENT: Normocephalic, Atraumatic, EOMI, MMM, clear drainage left ear appreciated
Respiratory: Clear to Auscultation bilaterally
Cardiac: Normal S1/S2, Regular Rate and Rhythm
GI: Soft, Nontender, Nondistended, Normal Bowel Sounds
Extremities: No Clubbing, Cyanosis, or Edema
Neuro: Left-sided hemiparesis baseline
Psych: Calm, Cooperative
Anticipated Discharge: Today
Subjective/Interval History
-
Date of Service: February 24, 2024
Patient had 1 episode of vomiting yesterday morning. She tolerated her meals the rest of the day. She had a large bowel movement with her enema today. No fever, no vomiting today.
Objective Data
-
Labs:
Laboratory Results
02/24/24
06:00
WBC Pending
Hgb Pending
Hct Pending
Plt Count Pending
Sodium Pending
Potassium Pending
Chloride Pending
Carbon Dioxide Pending
BUN Pending
Creatinine Pending
Glucose Pending
Calcium Pending
Total Bilirubin Pending
AST Pending
ALT Pending
Alkaline Phosphatase Pending
Vital Signs:
Vital Signs
Temp Pulse Resp BP Pulse Ox
98.3 F 78 16 113/72 94
02/23/24 23:18 02/23/24 23:18 02/23/24 23:18 02/23/24 23:18 02/23/24 23:18
I&O
02/23/24 02/24/24 02/25/24
06:59 06:59 06:59
Intake Total 720 / 720 880 / 880
Output Total 240 / 240 600 / 600
Balance 480 / 480 280 / 280
--- NOTE | 2024-02-24 16:30 | W.DCSUMMARY ---
Discharge Summary
Discharge Data
Date of Admission: 02/11/24
Date of Discharge: 02/24/24
-
Pending Results: No
Hospital Course
Discharge diagnosis:
Recurrent vomiting
Opioid-induced constipation
Delayed gastric emptying
Acute urinary retention
Recurrent coffee-ground emesis
Grade D esophagitis
Subacute blood loss anemia
Profound hypomagnesemia
Hypokalemia
Chronic pain syndrome on chronic opioids with dependence
History of pulmonary embolism/deep vein thrombosis
History of cerebellar stroke with residual left-sided hemiparesis
Functional quadriplegia
Consults: GI
Hospital course:
48-year-old female senior living resident with a past medical history of cerebellar stroke with residual left-sided hemiparesis, DVT/PE on Eliquis, obesity status post gastric bypass surgery, peptic ulcer disease with remote perforation requiring
surgical repair, spinal cord cancer status post surgery, chronic back pain on chronic opioids, and opioid induced constipation was admitted for recurrent vomiting with recurrent coffee-ground emesis. Patient has a history of esophagitis. She was
seen in conjunction with GI. She was treated with Protonix 40 mg IV twice daily, Carafate 1 g ACHS.
Her Eliquis was held. Her hemoglobin remained stable. Her coffee-ground emesis resolved. GI cleared her to resume Eliquis.
Patient has delayed gastric emptying, secondary to a history of gastric bypass, immobility, as well as opioid-induced constipation. She was treated with an aggressive bowel regimen. She was started on Reglan 10 mg ACHS. Her vomiting waxed and
waned. Her hospital course was prolonged secondary to the difficult nature to control her vomiting and her constipation. She did have an episode of acute urinary retention, requiring straight cath. This resolved with treatment of her constipation.
After a prolonged hospital course, her vomiting did improve. She tolerated a diet. Recommend she eat 6 small meals, and continue Reglan 10 mg ACHS. She is also to continue the Protonix 40 mg p.o. twice daily, as well as Carafate 1 g ACHS. She
also needs to continue her aggressive bowel regimen upon discharge. Patient's multiple medical conditions have been optimized. She needs to follow-up with her primary care doctor in 1 week.
Disposition: Back to the senior living
Discharge planning: Required 50 minutes
Discharge Plan
-
Patient Disposition: [facility]/SNF
Discharge Diagnosis/Procedures: Esophagitis, coffee-ground emesis, recurrent vomiting, delayed gastric emptying, opioid-induced constipation, history of gastric bypass, acute urinary retention, profound hypomagnesemia, hypokalemia, chronic back pain
on chronic opioids, history of cerebellar stroke with left-sided hemiparesis
Condition: Fair
Diet: Regular and Other diet
Additional Diets: 6 small meals
Activity: As tolerated
Blood Work: Repeat A1c with primary care provider in 3 months of discharge. Most recent A1c 5.1 indicates that you are currently non-diabetic
Referrals:
Hiren Mckinney MD [Active] - (will need 4-6 weeks follow up and then set up for 8 week EGD/colonoscopy )
Dalia Fox DO [Family Provider] - in one week
Prescriptions:
New
sucralfate 1 gram Tablet
1 g PO ACHS Qty: 0 0RF
metoclopramide HCl 10 mg Tablet
10 mg PO ACHS Qty: 0 0RF
lactulose 20 gram/30 mL Solution
20 g PO TID Qty: 0 0RF
Continued
polyethylene glycol 3350 [Miralax] 17 gram Powder In Packet
17 g PO BID Qty: 0
atorvastatin [Lipitor] 40 mg Tablet
40 mg PO HS
melatonin 3 mg Tablet
3 mg PO HS
amitriptyline 25 mg Tablet
25 mg PO HS
baclofen 10 mg Tablet
10 mg PO TID
lorazepam 1 mg Tablet
1 mg PO Q6H
loratadine 10 mg Tablet
10 mg PO DAILY
pregabalin [Lyrica] 200 mg Capsule
200 mg PO TID
Rx Instructions:
for muscle spasm
Eliquis 5 mg Tablet
5 mg PO BID
oddhlecnaz-jcobcptskwxjs-juaf 50-325-40 mg Capsule
1 cap PO Q6HPRN PRN (Reason: headches)
acetaminophen [Tylenol] 325 mg Tablet
650 mg PO Q4HPRN PRN (Reason: pain )
ketotifen fumarate [Zaditor] 0.025 % (0.035 %) Drops
1 drp BOTH EYES BID
metoclopramide HCl [Reglan] 5 mg Tablet
5 mg PO Q6HPRN PRN (Reason: nausea)
morphine 60 mg Tablet Extended Release
60 mg PO Q12H
salicylic acid 2 % Foam
1 ea TOPICAL MOFR@0800
metronidazole 0.75 % Cream
1 applic TOPICAL DAILY
Fleet Enema 19-7 gram/118 mL Enema
118 ml SC Q8HPRN PRN (Reason: constipation)
nystatin 100,000 unit/gram Powder
1 applic TOPICAL Q12H
ondansetron 4 mg Tablet,Disintegrating
4 mg PO Q6HPRN PRN (Reason: nasuea)
oxycodone 20 mg Tablet
20 mg PO QID
cholecalciferol (vitamin D3) [Vitamin D3] 50 mcg (2,000 unit) Tablet
50 mcg PO DAILY
pantoprazole [Protonix] 40 mg Tablet,Delayed Release (Dr/Ec)
40 mg PO BID 60 Days Qty: 120 0RF
Changed
sennosides-docusate sodium 8.6-50 mg Tablet
2 tab-cap PO BID Qty: 0 0RF
bisacodyl [Dulcolax (bisacodyl)] 10 mg Suppository
10 mg SC DAILY Qty: 0 0RF
Discharge Orders:
Discharge Patient (As Directed); Ordered 02/24/24
Ordered By: Ricki Do
Discharge Date and Time
Discharge Date/Time: 02/24/24 18:26
Print Language: MACEDONIAN
[2024-02-24] MEDS: CARAFATE PO (16:59)
--- NOTE | 2024-03-01 09:29 | PN.CDI ---
CDI
- -
CDI:
Physician Documentation Request
Admit Date: 02/11/24 17:19
Dear Doctor Do,
Please review the following and provide your response in the progress notes.
Clinical Indicators:
The diagnosis of functional quadriplegia was documented on 02/23 Discharge Summary but is not noted in other documentation.
- 02/23 Discharge summary 'Functional quadriplegia'
- 'History of cerebellar stroke with residual left-sided hemiparesis'
- Documented activity - Assist x 2
- Documented mouth care - self
- Documented feeding - self
Please clarify the following:
____ - Functional quadriplegia was present
____ - Functional quadriplegia was ruled out
____ - Other
Use of terms such as suspected, likely, concern for, or probable (associated with a specific diagnosis that is being evaluated, monitored, or treated as if it exists) are acceptable and can be coded in the inpatient setting, when documented at the
time of discharge.
Thank you,
Severiano Maldonado RN
CDI Specialist
Please use your independent medical judgment in providing your response.
== END 2024-02-24 18:26 | DRG 391 ==
LOC: 2 NORTH 17:19
PROVIDERS: ADMITTING PHYSICIAN Family Medicine; CONSULT PHYSICIAN Internal Medicine Gastroenterology; CONSULT PHYSICIAN Otolaryngology; EMERGENCY PHYSICIAN Emergency Medicine; FAMILY PHYSICIAN Hospitalist
DX: K59.03 Drug induced constipation (principal); R53.2 Functional quadriplegia; Z68.41 Body mass index [BMI] 40.0-44.9, adult; F11.20 Opioid dependence, uncomplicated; I69.354 Hemiplegia and hemiparesis following cerebral infarction affecting left non-dominant side; E87.6 Hypokalemia; E83.42 Hypomagnesemia; F31.9 Bipolar disorder, unspecified; F41.9 Anxiety disorder, unspecified; D50.0 Iron deficiency anemia secondary to blood loss (chronic); G89.4 Chronic pain syndrome; E66.01 Morbid (severe) obesity due to excess calories; Z74.01 Bed confinement status; Z98.84 Bariatric surgery status; K30 Functional dyspepsia; M54.9 Dorsalgia, unspecified
CPT/HCPCS: 71045; 71046; 74018; 74022; 80048; 80053; 81003; 81015; 82962; 83036; 83735; 84100; 85025; 85027; 85610; 85730; 86850; 86900; 86901; 87070; 93005; 96361; 96365; 96366; 96375; 99285

== ENCOUNTER 2024-03-08 22:37 | Emergency (ER) | payer MEDICARE, OTHER, SELFPAY ==
[2024-03-08 22:45] VITALS: BP 110/64
--- NOTE | 2024-03-08 22:58 | ED.GENMED ---
History of Present Illness
General
Chief Complaint: Vomiting Blood
Source: patient
Exam Limitations: none
Time Seen by Provider: 03/08/24 22:51
Travel History
Have you had any contact with someone who has COVID-19?: No
Do you have any symptoms of coronavirus? Fever > 100 degrees, chills, cough, shortness of breath, sore throat, loss of taste or smell, muscle aches, or headache?: No
History of Present Illness
History of Present Illness:
See MDM
Past History
Past History
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
gastric ulcer)
ED Past Surgical History: Other (gastric bypass, back sx)
Social History
Tobacco: Non-smoker
Alcohol: None
Personal: Single
Living: long-term
Employment: Disabled
Family History
Family History: Other (Noncontributory)
Phy Exam
Physical Exam
Physical Exam:
See MDM
Course
Orders/Labs/Results
Orders:
Orders
03/08/24 22:51
ECG [Electrocardiogram (*1)] Urgent
Reason for Study: Other
Other Reason for Exam: tachycardia
EKG- Treatment ONCE
03/08/24 22:57
0.9% Sodium Chloride 1000 ml [Nss] 1,000 ml IV BOLUS
03/08/24 22:58
CR Chest Portable - 1 View Urgent
Comment:
Reason For Exam: vomiting, chest pain
Reason Study Needs to be Portable: Patient Unstable
03/08/24 23:24
Promethazine [Phenergan] 25 mg 0.9% Sodium Chloride 50 ml [Nss] 50 ml IV NOW
03/08/24 23:57
Complete Blood Count/With Diff Urgent
Comprehensive Metabolic Panel Urgent
Lipase Urgent
03/09/24 00:21
HYDROmorphone [Dilaudid] 1 mg IV NOW STA
Lorazepam [Ativan] 1 mg IV NOW STA
Abnormal Lab Results
03/08/24
23:57
Hct 36.5 L %
(37.0-47.0)
MCV 79.3 L fL
(81.0-99.0)
MCH 26.1 L pg
(27.0-31.0)
MCHC 32.9 L g/dL
(33.0-37.0)
RDW 15.0 H %
(11.5-14.5)
Neutrophils % 76.5 H %
(42.2-75.2)
Lymphocytes % 15.7 L %
(20.5-51.1)
Creatinine 0.5 L mg/dL
(0.6-1.0)
Glucose 108 H mg/dl
(70-99)
Total Protein 6.1 L g/dl
(6.3-8.2)
Albumin 3.2 L g/dl
(3.5-5.0)
03/08/24 23:57
03/08/24 23:57
Vital Signs
Initial and Last Documented VS:
Initial Vital Signs
Temp Pulse Resp BP Pulse Ox
98.1 F 79 16 110/64 100
03/08/24 22:45 03/08/24 22:45 03/08/24 22:45 03/08/24 22:45 03/08/24 22:45
Last Documented Vital Signs
Temp Pulse Resp BP Pulse Ox
98.1 F 72 17 140/76 100
03/08/24 22:45 03/09/24 01:00 03/09/24 01:00 03/09/24 01:00 03/08/24 22:45
MDM/Problems Addressed
Differential Diagnosis Includes:
HPI and MDM Narrative:
48-year-old female presenting with mid abdominal and chest pain and vomiting. Vomiting for 3 days. Patient states this is an ongoing problem. She has been taking Zofran with minimal relief. She was recently admitted to the and had endoscopy
showing evidence of ulcerative esophagitis without evidence of bleeding. She was continued on PPI twice daily and to continue Carafate. She is supposed to follow-up with GI as an outpatient for repeat EGD and colonoscopy around 2 months
Patient denies any blood in her vomit
On exam, she is lying in bed comfortably. She is tearful about living the way she lives and her comorbidities. Will give IV fluids and give trial of Phenergan and continue to reassess
Physical exam
General: Well appearing and non-toxic
HEENT: protecting airway
Neck: appears supple
CV: No evidence of cyanosis
Chest: No crepitus
Resp: No accessory muscle use
Abd: Non-distended. Soft and nontender
Extremities: No deformities
Neuro: Left hemiparesis
Psych: Tearful
Skin: Intact
Problems Addressed including Acute and Chronic Conditions affecting care:
1. Vomiting
Acuity: acute on chronic
Prognosis: stable
Details: Will give fluids and Phenergan and continue to evaluate. Recent endoscopy showed ulcerative esophagitis without active bleeding. She denies any bleeding in her vomit over the past 3 days
Updates
Hemoglobin stable, chest x-ray clear. On prolonged observation, no vomiting noted in the ER.
Differential Diagnosis (but not limited to): Esophagitis, reflux, pancreatitis
Testing considered: CT abdomen/pelvis but no significant tenderness to
Drug therapy (if applicable): OTC meds, please see d/c instruction regarding Rx drugs
Amount and/or Complexity of Data Reviewed
Clinical info obtained from: Patient
External data reviewed: Recent endoscopy showing esophagitis
Labs I independently reviewed (but not limited to): Hemoglobin stable
Radiology: N/A
Pulse Ox: not hypoxic
EKG independently reviewed: N/A
Real Property Appraiser: N/A
Critical Care: N/A
Risk of Complication:
Social Determinants of health: Good social support
Discussed with other providers: N/A
Escalation of Care includes Admit/Obs: After being observed in the Emergency Department, pt stable for discharge.
Occasional wrong word or 'sound a like' substitutions may have occurred due to the inherent limitations of voice recognition software. Read the chart carefully and recognize, using context, where substitutions have occurred.
*Critical Care Note
Total Time (30-74mins, 75-104mins- exclusive of procedures): Not Applicable
ED Attending Note
-
Portions of this chart may have been created with voice recognition software.� Occasional wrong word or��sound alike� substitutions may have occurred due to the inherent limitations of voice recognition software.
Discharge Plan
Departure
Patient Disposition: Home (Routine Discharge)
Date of Disposition: 03/09/24
Time of Disposition: 01:54
Patient with high blood pressure during this ER visit?: No
Discharge Problem:
Nausea & vomiting
Instructions: Nausea and Vomiting, Adult (DC)
Prescriptions:
New
promethazine 25 mg tablet
25 mg PO HS PRN (Reason: nausea and vomiting) Qty: 14 0RF
No Action
polyethylene glycol 3350 [Miralax] 17 gram Powder In Packet
17 g PO BID Qty: 0
atorvastatin [Lipitor] 40 mg Tablet
40 mg PO HS
melatonin 3 mg Tablet
3 mg PO HS
amitriptyline 25 mg Tablet
25 mg PO HS
baclofen 10 mg Tablet
10 mg PO TID
lorazepam 1 mg Tablet
1 mg PO Q6H
loratadine 10 mg Tablet
10 mg PO DAILY
pregabalin [Lyrica] 200 mg Capsule
200 mg PO TID
Rx Instructions:
for muscle spasm
Eliquis 5 mg Tablet
5 mg PO BID
bafnfrlrgi-kflsljtkcdhfl-mvhq 50-325-40 mg Capsule
1 cap PO Q6HPRN PRN (Reason: headches)
acetaminophen [Tylenol] 325 mg Tablet
650 mg PO Q4HPRN PRN (Reason: pain )
ketotifen fumarate [Zaditor] 0.025 % (0.035 %) Drops
1 drp BOTH EYES BID
metoclopramide HCl [Reglan] 5 mg Tablet
5 mg PO Q6HPRN PRN (Reason: nausea)
morphine 60 mg Tablet Extended Release
60 mg PO Q12H
salicylic acid 2 % Foam
1 ea TOPICAL MOFR@0800
metronidazole 0.75 % Cream
1 applic TOPICAL DAILY
Fleet Enema 19-7 gram/118 mL Enema
118 ml CA Q8HPRN PRN (Reason: constipation)
nystatin 100,000 unit/gram Powder
1 applic TOPICAL Q12H
ondansetron 4 mg Tablet,Disintegrating
4 mg PO Q6HPRN PRN (Reason: nasuea)
oxycodone 20 mg Tablet
20 mg PO QID
cholecalciferol (vitamin D3) [Vitamin D3] 50 mcg (2,000 unit) Tablet
50 mcg PO DAILY
pantoprazole [Protonix] 40 mg Tablet,Delayed Release (Dr/Ec)
40 mg PO BID 60 Days Qty: 120 0RF
sucralfate 1 gram Tablet
1 g PO ACHS Qty: 0 0RF
metoclopramide HCl 10 mg Tablet
10 mg PO ACHS Qty: 0 0RF
lactulose 20 gram/30 mL Solution
20 g PO TID Qty: 0 0RF
sennosides-docusate sodium 8.6-50 mg Tablet
2 tab-cap PO BID Qty: 0 0RF
bisacodyl [Dulcolax (bisacodyl)] 10 mg Suppository
10 mg CA DAILY Qty: 0 0RF
Referrals:
Dalia Fox DO [Family Provider] -
Activity Restrictions/Additional Instructions:
Please return for any worsening symptoms.
You may return at any time if you have further concerns.
Please follow up with your doctor at the first available appointment, preferably this week.
Interventions
Interventions:
*Risk Screen - Suicide Last Done: 03/08/24 22:49
*General Assessment Last Done: 03/08/24 22:49
*Neglect/Abuse Screening Last Done: 03/08/24 22:49
MB-Vommpi-Eaqdkhibhm Assessment Last Done: 03/08/24 23:26
ED- Cardiac Assessment Last Done: 03/08/24 22:49
ED- Pulmonary Assessment Last Done: 03/08/24 23:26
Discharge Date and Time
Print Language: WALLISIAN
[2024-03-09 00:03] LABS: % Basophils 0.3 % (0-2); % Eosinophils 0.8 % (0-6); % Immature Granulocytes 0.4 % (0-0.5); % Lymphocytes 15.7 % (20.5-51.1); % Monocytes 6.3 % (1.7-9.3); % Neutrophils 76.5 % (42.2-75.2); Absolute Eosinophils 0.1 10^3/uL (0-0.7); Absolute Lymphocytes 1.2 10^3/uL (1.2-3.4); Absolute Monocytes 0.5 10^3/uL (0.1-0.6); Hematocrit 36.5 % (37.0-47.0); Mean Corp Hgb Conc. 32.9 g/dL (33.0-37.0); Mean Corpuscular Hgb 26.1 pg (27.0-31.0); Mean Corpuscular Volume 79.3 fL (81.0-99.0); Mean Platelet Volume 10.3 fL (7.4-10.4); Nucleated Red Blood Cells % 0 %; Platelet Count 261 10^3/uL (130-400); White Blood Cell Count 7.8 10^3/uL (4.8-10.8)
[2024-03-09] MEDS: NSS 1000 IV (00:05)
[2024-03-09 00:28] LABS: ALT (SGPT) 14 U/L (0-35); AST (SGOT) 22 U/L (14-36); Albumin 3.2 g/dl (3.5-5.0); Alkaline Phosphatase 103 U/L (38-126); Blood Urea Nitrogen 8 mg/dl (7-17); Calcium 9.2 mg/dl (8.4-10.2); Carbon Dioxide 30 mmol/L (22-30); Chloride 101 mmol/L (98-107); Glucose 108 mg/dl (70-99); Lipase 46 U/L (23-300); Potassium 4.1 mmol/L (3.5-5.1); Sodium 136 mmol/L (135-145); Total Bilirubin 0.4 mg/dl (0.2-1.3); Total Protein 6.1 g/dl (6.3-8.2); eGFR > 60.00
[2024-03-09] MEDS: DILAUDID 1 MG IV (00:53)
[2024-03-09] MEDS: ATIVAN 1 MG IV (00:53)
[2024-03-09] MEDS: PHENERGAN 51 MG IV (00:53)
[2024-03-09 00:56] VITALS: BP 125/92
[2024-03-09 01:00] VITALS: BP 140/76
[2024-03-09 02:00] VITALS: BP 124/90
== END 2024-03-09 03:04 | disposition home or self-care (01) ==
LOC: EMR 22:37
PROVIDERS: EMERGENCY PHYSICIAN Student in an Organized Health Care Education/Training Program; FAMILY PHYSICIAN Hospitalist
DX: K92.0 Hematemesis (principal); R07.9 Chest pain, unspecified
CPT/HCPCS: 99285; 96365; 96375 ×2; 71045; 80053; 83690; 85025; 93005

== ENCOUNTER 2024-04-27 22:10 | Emergency (ER) | payer MEDICARE, OTHER, SELFPAY ==
[2024-04-27 22:11] VITALS: BMI 40.2
[2024-04-27 22:14] VITALS: BP 137/73
[2024-04-27 22:50] LABS: % Basophils 0.4 % (0-2); % Eosinophils 0.9 % (0-6); % Immature Granulocytes 0.3 % (0-0.5); % Lymphocytes 22.3 % (20.5-51.1); % Monocytes 7.4 % (1.7-9.3); % Neutrophils 68.7 % (42.2-75.2); Absolute Eosinophils 0.1 10^3/uL (0-0.7); Absolute Lymphocytes 1.5 10^3/uL (1.2-3.4); Absolute Monocytes 0.5 10^3/uL (0.1-0.6); Absolute Neutrophils 4.6 10^3/uL (1.4-6.5); Hemoglobin 11.4 g/dL (12.0-16.0); Mean Corp Hgb Conc. 34.5 g/dL (33.0-37.0); Mean Corpuscular Hgb 26.5 pg (27.0-31.0); Mean Corpuscular Volume 76.6 fL (81.0-99.0); Mean Platelet Volume 9.8 fL (7.4-10.4); Nucleated Red Blood Cells % 0 %; Platelet Count 260 10^3/uL (130-400); Red Blood Cell Count 4.31 10^6/uL (4.20-5.40); Red Cell Dist. Width 18.4 % (11.5-14.5); White Blood Cell Count 6.7 10^3/uL (4.8-10.8)
[2024-04-27 23:07] LABS: ALT (SGPT) 12 U/L (0-35); AST (SGOT) 17 U/L (14-36); Albumin 3.7 g/dl (3.5-5.0); Alkaline Phosphatase 90 U/L (38-126); Blood Urea Nitrogen 9 mg/dl (7-17); Calcium 9.1 mg/dl (8.4-10.2); Carbon Dioxide 27 mmol/L (22-30); Chloride 102 mmol/L (98-107); Estimated Creatinine Clearance > 125 ml/min; Glucose 123 mg/dl (70-99); Potassium 3.8 mmol/L (3.5-5.1); Sodium 135 mmol/L (135-145); Total Bilirubin 0.7 mg/dl (0.2-1.3); Total Protein 6.2 g/dl (6.3-8.2); eGFR > 60.00
[2024-04-27] MEDS: PHENERGAN 51 MG IV (23:21)
[2024-04-27] MEDS: PROTONIX IV 80 MG IV (23:21)
[2024-04-27] MEDS: NSS 1000 IV (23:22)
--- NOTE | 2024-04-27 23:35 | ED.GENMED ---
History of Present Illness
General
Chief Complaint: Abdominal Symptoms
Source: patient
Exam Limitations: none
Time Seen by Provider: 04/27/24 22:20
Nursing documentation reviewed up to this point in time: agreed with
History of Present Illness
History of Present Illness:
48-year-old female with past medical history of previous stroke DVT PE currently on Eliquis, esophagitis presenting to the emergency department today with concerns of nausea vomiting abdominal pain she claims has been ongoing for over a month but
worsening today. She has been having ongoing vomiting today and does have diffuse abdominal pain. Does of a history of ulcerative esophagitis. Has not followed up with GI. Denies specific chest pain shortness of breath, fevers.
Past History
Past History
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
gastric ulcer)
ED Past Surgical History: Other (gastric bypass, back sx)
Social History
Tobacco: Non-smoker
Alcohol: None
Personal: Single
Living: [facility]
Employment: Disabled
Family History
Family History: Other (Noncontributory)
Review of Systems
Review of Systems
Allergies reviewed?: Yes
All Other Systems: ROS reviewed and negative except as documented in HPI and ROS
Phy Exam
Physical Exam
Physical Exam:
GENERAL: Alert , in no apparent distress
EYE: pupils equal and reactive
NECK: Supple, no significant adenopathy.
ENT: o/p clr, mmm.
CARDIAC: Regular rate and rhythm .
LUNGS: Clear breath sounds bilaterally, no acute respiratory distress, no wheezes/rales/rhonchi
ABDOMEN: Diffuse tenderness palpation.
NEUROLOGICAL: Alert and oriented, no focal neuro deficits
SKIN: Warm and dry, skin intact.
MUSCULOSKELETAL: No edema, well perfused.
PSYCH: Normal and appropriate interaction.
Course
Orders/Labs/Results
Orders:
Orders
04/27/24 22:45
Complete Blood Count/With Diff Urgent
Comprehensive Metabolic Panel Urgent
HCG, Serum Qualitative Screen Urgent
Comment: ADD ON
Lipase Urgent
Comment: ADD ON
04/27/24 22:58
0.9% Sodium Chloride 1000 ml [Nss] 1,000 ml IV BOLUS
Pantoprazole [Protonix IV] 80 mg IV NOW STA
Test Result ONCE
04/27/24 22:59
Electrocardiogram (*1) Stat
Reason for Study: Abdominal Pain
EKG- Treatment ONCE
04/27/24 23:06
Promethazine [Phenergan] 25 mg 0.9% Sodium Chloride 50 ml [Nss] 50 ml IV NOW
04/27/24 23:34
Lactic Acid Urgent
04/27/24 23:46
Add On- LAB Urgent
Tests Added?: hcg qual and lipase
04/28/24 00:00
CT Abd/Pel (IV only)-DH only Urgent
Reason For Exam: cant tolerate oral, hx of gastric bypass, diffuse
04/28/24 01:40
HYDROmorphone [Dilaudid] 0.5 mg IV NOW STA
Abnormal Lab Results
04/27/24
22:45
Hgb 11.4 L g/dL
(12.0-16.0)
Hct 33.0 L %
(37.0-47.0)
MCV 76.6 L fL
(81.0-99.0)
MCH 26.5 L pg
(27.0-31.0)
RDW 18.4 H %
(11.5-14.5)
Creatinine 0.4 L mg/dL
(0.6-1.0)
Glucose 123 H mg/dl
(70-99)
Total Protein 6.2 L g/dl
(6.3-8.2)
04/27/24 22:45
04/27/24 22:45
Vital Signs
Initial and Last Documented VS:
Initial Vital Signs
Temp Pulse Resp BP Pulse Ox
98.3 F 83 16 137/73 99
04/27/24 22:14 04/27/24 22:14 04/27/24 22:14 04/27/24 22:14 04/27/24 22:14
Last Documented Vital Signs
Temp Pulse Resp BP Pulse Ox
98.3 F 83 16 137/73 99
04/27/24 22:14 04/27/24 22:14 04/27/24 22:14 04/27/24 22:14 04/27/24 22:14
MDM/Problems Addressed
MDM/Problems Addressed:
48-year-old female presenting to the emergency department today with concerns of abdominal pain and nausea and vomiting. Has been ongoing for months worsening over the past 2 days. Does have known ulcerative c esophagitis. On arrival here vital
signs are normal patient with vague subtle abdominal pain diffusely otherwise labs here unremarkable. CT scan without emergent findings. No ongoing symptoms here no vomiting here no blood. Hemoglobin at baseline. Patient was advised for bowel
regiment considering she is constipated and advised for GI follow-up. Return precautions given.
*Critical Care Note
Total Time (30-74mins, 75-104mins- exclusive of procedures): Not Applicable
ED Attending Note
-
Portions of this chart may have been created with voice recognition software.� Occasional wrong word or��sound alike� substitutions may have occurred due to the inherent limitations of voice recognition software.
Discharge Plan
Departure
Patient Disposition: Home (Routine Discharge)
Date of Disposition: 04/28/24
Time of Disposition: 01:44
Patient with high blood pressure during this ER visit?: No
Condition: Good
Covid-19: Not Applicable
Discharge Problem:
Abdominal pain
Instructions: Abdominal Pain
Prescriptions:
No Action
polyethylene glycol 3350 [Miralax] 17 gram Powder In Packet
17 g PO BID Qty: 0
atorvastatin [Lipitor] 40 mg Tablet
40 mg PO HS
melatonin 3 mg Tablet
3 mg PO HS
amitriptyline 25 mg Tablet
25 mg PO HS
baclofen 10 mg Tablet
10 mg PO TID
lorazepam 1 mg Tablet
1 mg PO Q6H
loratadine 10 mg Tablet
10 mg PO DAILY
pregabalin [Lyrica] 200 mg Capsule
200 mg PO TID
Rx Instructions:
for muscle spasm
Eliquis 5 mg Tablet
5 mg PO BID
gnydlsjnww-ewiwmnkbydcpq-uify 50-325-40 mg Capsule
1 cap PO Q6HPRN PRN (Reason: headches)
acetaminophen [Tylenol] 325 mg Tablet
650 mg PO Q4HPRN PRN (Reason: pain )
ketotifen fumarate [Zaditor] 0.025 % (0.035 %) Drops
1 drp BOTH EYES BID
metoclopramide HCl [Reglan] 5 mg Tablet
5 mg PO Q6HPRN PRN (Reason: nausea)
morphine 60 mg Tablet Extended Release
60 mg PO Q12H
salicylic acid 2 % Foam
1 ea TOPICAL MOFR@0800
metronidazole 0.75 % Cream
1 applic TOPICAL DAILY
Fleet Enema 19-7 gram/118 mL Enema
118 ml [place] Q8HPRN PRN (Reason: constipation)
nystatin 100,000 unit/gram Powder
1 applic TOPICAL Q12H
ondansetron 4 mg Tablet,Disintegrating
4 mg PO Q6HPRN PRN (Reason: nasuea)
oxycodone 20 mg Tablet
20 mg PO QID
cholecalciferol (vitamin D3) [Vitamin D3] 50 mcg (2,000 unit) Tablet
50 mcg PO DAILY
pantoprazole [Protonix] 40 mg Tablet,Delayed Release (Dr/Ec)
40 mg PO BID 60 Days Qty: 120 0RF
sucralfate 1 gram Tablet
1 g PO ACHS Qty: 0 0RF
metoclopramide HCl 10 mg Tablet
10 mg PO ACHS Qty: 0 0RF
lactulose 20 gram/30 mL Solution
20 g PO TID Qty: 0 0RF
sennosides-docusate sodium 8.6-50 mg Tablet
2 tab-cap PO BID Qty: 0 0RF
bisacodyl [Dulcolax (bisacodyl)] 10 mg Suppository
10 mg [place] DAILY Qty: 0 0RF
promethazine 25 mg tablet
25 mg PO HS PRN (Reason: nausea and vomiting) Qty: 14 0RF
Referrals:
Dalia Fox DO [Family Provider] -
Activity Restrictions/Additional Instructions:
You came to the emergency department today with concerns of ongoing abdominal pain. Please follow-up closely with GI for further assessment. Here your hemoglobin was stable. Please make sure you are taking antacid and other prescribed medications
return for any worsening, new or concerning symptoms.
Interventions
Interventions:
*Risk Screen - Suicide Last Done: 04/27/24 22:14
*General Assessment Last Done: 04/27/24 22:22
*Neglect/Abuse Screening Last Done: 04/27/24 22:23
ED- Fall Risk Assessment Last Done: 04/27/24 22:25
BQ-Openxq-Jtimuekhaj Assessment Last Done: 04/27/24 22:25
Discharge Date and Time
Print Language: NIGERIEN
[2024-04-28 00:14] LABS: HCG, Serum Qualitative Screen Negative
[2024-04-28 00:25] LABS: Lipase 35 U/L (23-300)
[2024-04-28] MEDS: DILAUDID 0.5 MG IV (01:50)
[2024-04-28 02:05] VITALS: BP 135/70
[2024-04-28 07:33] VITALS: BP 123/64
== END 2024-04-28 09:30 | disposition home or self-care (01) ==
LOC: EMR 22:10
PROVIDERS: Physician Assistant; EMERGENCY PHYSICIAN Emergency Medicine; FAMILY PHYSICIAN Hospitalist
DX: R10.84 Generalized abdominal pain (principal); R11.2 Nausea with vomiting, unspecified; E11.9 Type 2 diabetes mellitus without complications; I69.354 Hemiplegia and hemiparesis following cerebral infarction affecting left non-dominant side; K21.9 Gastro-esophageal reflux disease without esophagitis; G89.4 Chronic pain syndrome; G43.909 Migraine, unspecified, not intractable, without status migrainosus; Q96.8 Other variants of Turner's syndrome; F41.9 Anxiety disorder, unspecified; F31.9 Bipolar disorder, unspecified; Z79.01 Long term (current) use of anticoagulants; Z86.711 Personal history of pulmonary embolism; Z86.718 Personal history of other venous thrombosis and embolism; Z87.11 Personal history of peptic ulcer disease; Z98.84 Bariatric surgery status; Z88.6 Allergy status to analgesic agent; Z88.1 Allergy status to other antibiotic agents; Z88.2 Allergy status to sulfonamides; Z88.8 Allergy status to other drugs, medicaments and biological substances
CPT/HCPCS: 99285; 96374; 96375 ×2; 96361 ×2; 74177; 80053; 83605; 83690; 84703; 85025; 93005; Q9967

== ENCOUNTER 2024-05-14 11:50 | Emergency (ER) | payer MEDICARE, OTHER, SELFPAY ==
[2024-05-14] VITALS (7 sets, daily range): BP systolic 92–110; BP diastolic 64–84; BMI 39.1
--- NOTE | 2024-05-14 13:23 | ED.GENMED ---
History of Present Illness
General
Chief Complaint: Vomiting Blood
Source: patient
Exam Limitations: none
Time Seen by Provider: 05/14/24 13:06
Nursing documentation reviewed up to this point in time: agreed with
History of Present Illness
History of Present Illness:
Patient to ED with complaint of vomiting blood since last PM. Spoke with [place] staff who report patient reported vomiting. No witnessed vomiting or bleeding.
Past History
Past History
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
GERD, perforated gastric ulcer) and Other (hemiplegia, hypotension, migraine)
ED Past Surgical History: Other (gastric bypass, back sx)
Social History
Tobacco: Non-smoker
Alcohol: None
Personal: Single
Living: snf
Employment: Disabled
Family History
Family History: Other (Noncontributory)
Review of Systems
Review of Systems
Allergies reviewed?: Yes
All Other Systems: ROS reviewed and negative except as documented in HPI and ROS
Constitutional: Reports no symptoms
EENT: Reports no symptoms
Respiratory: Reports no symptoms
Cardiac: Reports no symptoms
ABD/GI: Reports nausea and vomiting
: Reports no symptoms
Musculoskeletal: Reports no symptoms
Skin: Reports no symptoms
Neurological: Reports no symptoms
Psychiatric: Reports no symptoms
Phy Exam
General Physical Exam
General Presentation: well appearing and no apparent distress
General age: appears stated age
General Skin: warm and dry
General Habitus: normal
General Mental: alert
Cardiovascular Exam
Cardiovascular Exam: regular rate/rhythm and no edema
Gastrointestinal Exam
Gastrointestinal Exam: normal bowel sounds, non tender, soft, no organomegaly and non distended
Musculoskeletal Exam
Musculoskeletal Exam: neuro vasc intact
Skin Exam
Skin Exam: normal color, warm/dry and no rash
Psychiatric Exam
Psychiatric Exam: normal mood/affect
Course
Orders/Labs/Results
Orders:
Orders
05/14/24 13:22
Urinalysis Reflex To Culture Urgent
0.9% Sodium Chloride 1000 ml [Nss] 1,000 ml IV BOLUS
05/14/24 13:32
Complete Blood Count/With Diff Urgent
Comprehensive Metabolic Panel Urgent
Lipase Urgent
Abnormal Lab Results
05/14/24
13:32
MCV 79.7 L fL
(81.0-99.0)
MCH 26.7 L pg
(27.0-31.0)
RDW 20.1 H %
(11.5-14.5)
Creatinine 0.5 L mg/dL
(0.6-1.0)
Glucose 116 H mg/dl
(70-99)
Total Protein 5.5 L g/dl
(6.3-8.2)
Albumin 3.0 L g/dl
(3.5-5.0)
05/14/24 13:32
05/14/24 13:32
Vital Signs
Initial and Last Documented VS:
Initial Vital Signs
BP
110/76
05/14/24 12:00
Last Documented Vital Signs
Temp Pulse Resp BP Pulse Ox
98.9 F 77 10 92/64 94
05/14/24 12:01 05/14/24 17:15 05/14/24 17:15 05/14/24 17:00 05/14/24 13:15
*Critical Care Note
Total Time (30-74mins, 75-104mins- exclusive of procedures): Not Applicable
Update Note
Update Note:
No vomiting while in dept. Eating and drinking without difficulty. Labs reviewed. No concerning findings on exam today. She is discharged back to [place]. Given instructions on s/s to return to ED and she is agreeable to plan.
ED Attending Note
-
Portions of this chart may have been created with voice recognition software.� Occasional wrong word or��sound alike� substitutions may have occurred due to the inherent limitations of voice recognition software.
Discharge Plan
Departure
Patient Disposition: Home (Routine Discharge)
Date of Disposition: 05/14/24
Time of Disposition: 18:19
Patient with high blood pressure during this ER visit?: No
Condition: Good
Covid-19: Not Applicable
Discharge Problem:
Nausea & vomiting
Instructions: Nausea and Vomiting, Adult (DC)
Prescriptions:
No Action
polyethylene glycol 3350 [Miralax] 17 gram Powder In Packet
17 g PO DAILY Qty: 0
atorvastatin [Lipitor] 40 mg Tablet
40 mg PO HS
melatonin 3 mg Tablet
3 mg PO HS
amitriptyline 25 mg Tablet
25 mg PO HS
baclofen 10 mg Tablet
10 mg PO TID
lorazepam 1 mg Tablet
1 mg PO Q6H
loratadine 10 mg Tablet
10 mg PO DAILY
pregabalin [Lyrica] 200 mg Capsule
200 mg PO TID
Rx Instructions:
for muscle spasm
Eliquis 5 mg Tablet
5 mg PO BID
tcftlpzebj-ptkoqiwnhjprn-gjoj 50-325-40 mg Capsule
1 cap PO Q6HPRN PRN (Reason: headches)
acetaminophen [Tylenol] 325 mg Tablet
650 mg PO Q4HPRN PRN (Reason: pain )
morphine 60 mg Tablet Extended Release
60 mg PO Q12H
Fleet Enema 19-7 gram/118 mL Enema
118 ml [place] DAILYPRN PRN (Reason: if no bm aftr dulcolax)
nystatin 100,000 unit/gram Powder
1 applic TOPICAL Q12H
ondansetron 4 mg Tablet,Disintegrating
4 mg PO Q8HPRN PRN (Reason: nasuea)
oxycodone 20 mg Tablet
20 mg PO Q6HPRN PRN (Reason: severe pain)
cholecalciferol (vitamin D3) [Vitamin D3] 50 mcg (2,000 unit) Tablet
50 mcg PO DAILY
pantoprazole [Protonix] 40 mg Tablet,Delayed Release (Dr/Ec)
40 mg PO BID 60 Days Qty: 120 0RF
sennosides [senna] 8.6 mg Tablet
17.2 mg PO HS
salicylic acid 2 % Pads, Medicated
1 applic TOPICAL MOFR
carboxymethylcellulose sodium [Refresh Tears] 0.5 % Drops
1 drp BOTH EYES Q4HPRN PRN (Reason: dryness)
ferrous sulfate 325 mg (65 mg iron) Tablet
325 mg PO DAILY
calcium carbonate [Tums] 200 mg calcium (500 mg) Tablet,Chewable
400 mg PO Q8HPRN PRN (Reason: gerd)
fluticasone propionate [Flonase] 50 mcg/actuation Ambia,Suspension
2 spray INTRANASAL NOON
dicyclomine 10 mg Capsule
10 mg PO TID
Lactobacillus acidoph-L.bulgar [Floranex] 100 million cell Granules In Packet
1 packet PO TID
linaclotide 145 mcg Capsule
145 mcg PO DAILY
lifitegrast 5 % Dropperette
1 drp BOTH EYES BID
magnesium oxide 400 mg magnesium Tablet
400 mg PO BID
bisacodyl [Dulcolax (bisacodyl)] 10 mg suppository
10 mg [place] DAILYPRN PRN (Reason: if no bm aftr mom)
Referrals:
Dalia Fox, DO [Family Provider] - Tomorrow
Interventions
Interventions:
*Risk Screen - Suicide Last Done: 05/14/24 12:01
*General Assessment Last Done: 05/14/24 12:15
*Neglect/Abuse Screening Last Done: 05/14/24 12:01
ED- Fall Risk Assessment Last Done: 05/14/24 12:15
*ED COVID-19 Vaccine History Last Done: 05/14/24 12:01
JV-Fdqxpb-Gahkiefbio Assessment Last Done: 05/14/24 12:15
ED- Cardiac Assessment Last Done: 05/14/24 12:15
ED- Pulmonary Assessment Last Done: 05/14/24 12:15
Discharge Date and Time
Print Language: [id number]
[2024-05-14] MEDS: NSS 1000 IV (13:35)
[2024-05-14 13:45] LABS: % Basophils 0.5 % (0-2); % Immature Granulocytes 0.3 % (0-0.5); % Lymphocytes 29.5 % (20.5-51.1); % Neutrophils 60.7 % (42.2-75.2); Absolute Eosinophils 0.2 10^3/uL (0-0.7); Absolute Lymphocytes 2.2 10^3/uL (1.2-3.4); Absolute Monocytes 0.5 10^3/uL (0.1-0.6); Absolute Neutrophils 4.5 10^3/uL (1.4-6.5); Hematocrit 37.4 % (37.0-47.0); Hemoglobin 12.5 g/dL (12.0-16.0); Mean Corp Hgb Conc. 33.4 g/dL (33.0-37.0); Mean Corpuscular Hgb 26.7 pg (27.0-31.0); Mean Corpuscular Volume 79.7 fL (81.0-99.0); Nucleated Red Blood Cells % 0 %; Platelet Count 337 10^3/uL (130-400); Red Blood Cell Count 4.69 10^6/uL (4.20-5.40); Red Cell Dist. Width 20.1 % (11.5-14.5); White Blood Cell Count 7.4 10^3/uL (4.8-10.8)
[2024-05-14 14:26] LABS: ALT (SGPT) 12 U/L (0-35); AST (SGOT) 16 U/L (14-36); Alkaline Phosphatase 90 U/L (38-126); Blood Urea Nitrogen 14 mg/dl (7-17); Calcium 8.8 mg/dl (8.4-10.2); Carbon Dioxide 28 mmol/L (22-30); Chloride 101 mmol/L (98-107); Estimated Creatinine Clearance > 125 ml/min; Glucose 116 mg/dl (70-99); Potassium 3.8 mmol/L (3.5-5.1); Sodium 135 mmol/L (135-145); Total Bilirubin 0.5 mg/dl (0.2-1.3); Total Protein 5.5 g/dl (6.3-8.2); eGFR > 60.00
[2024-05-14 14:27] LABS: Lipase 31 U/L (23-300)
== END 2024-05-14 20:40 | disposition home or self-care (01) ==
LOC: EMR 11:50
PROVIDERS: Nurse Practitioner; EMERGENCY PHYSICIAN Emergency Medicine; FAMILY PHYSICIAN Hospitalist
DX: K92.0 Hematemesis (principal); E11.9 Type 2 diabetes mellitus without complications; E78.00 Pure hypercholesterolemia, unspecified; K21.9 Gastro-esophageal reflux disease without esophagitis; I69.954 Hemiplegia and hemiparesis following unspecified cerebrovascular disease affecting left non-dominant side; G43.909 Migraine, unspecified, not intractable, without status migrainosus; F41.9 Anxiety disorder, unspecified; F32.A Depression, unspecified; F31.9 Bipolar disorder, unspecified; G89.4 Chronic pain syndrome; Z79.01 Long term (current) use of anticoagulants; Z79.891 Long term (current) use of opiate analgesic; Z86.718 Personal history of other venous thrombosis and embolism; Z87.11 Personal history of peptic ulcer disease; Z86.711 Personal history of pulmonary embolism; Z98.84 Bariatric surgery status; Z88.6 Allergy status to analgesic agent; Z88.1 Allergy status to other antibiotic agents; Z88.2 Allergy status to sulfonamides; Z88.8 Allergy status to other drugs, medicaments and biological substances; Z91.048 Other nonmedicinal substance allergy status
CPT/HCPCS: 99284; 96360; 80053; 83690; 85025